=== PATIENT | male | born 1960 | race Caucasian/White ===

== ENCOUNTER 2022-04-23 11:32 | Emergency (ER) | payer OTHER, SELFPAY ==
--- NOTE | ~2022-04-23 | CT_ITS ---
EXAMINATION: CT ABDOMEN AND PELVIS WITHOUT CONTRAST CLINICAL INFORMATION: Flank pain, UTI. Evaluate for stone versus pyelonephritis. COMPARISON: None TECHNIQUE: Multidetector volumetric imaging was performed from the superior aspect of the liver through the pubic symphysis. Sagittal and coronal reformatted images were obtained on the technologist's workstation. This CT examination was performed using dose optimization techniques as appropriate, variously including the following: *Automated exposure control. *Adjustment of mA and/or kV according to patient size (this includes techniques or standardized protocols for targeted exams where dose is matched to indication/reason for exam; i.e. extremities or head). *Use of iterative reconstruction technique. DLP: 502 mGy-cm FINDINGS: LUNG BASES: Minimal bibasilar scarring and/or discoid atelectasis. LIVER, GALLBLADDER, AND BILIARY TREE: Liver unremarkable. No intrahepatic or extrahepatic biliary dilatation. The gallbladder is unremarkable with no evidence of radiopaque gallstones, gallbladder wall thickening, or obvious pericholecystic inflammatory changes. PANCREAS: Unremarkable. SPLEEN: Unremarkable. ADRENAL GLANDS: A 1 cm left adrenal nodule nonspecific measuring 30 Hounsfield units. KIDNEYS AND URETERS: There are 2 adjacent 2 mm distal ureteral calculi at the right UV junction. No apparent dilatation of the right collecting system. Minimal right perinephric stranding. There is a 2 mm nonobstructing right renal calculus in the midpole. There is a 7 mm nonobstructing left renal calculus in the lower pole with minimal perinephric stranding. No dilatation of the collecting system. Possible but not definite 1 mm calculi within or adjacent to the left UV junction. There is also a tiny 1 mm calcification likely within the bladder compatible with a small bladder calculus. BLADDER: The bladder is only partially distended. Question thickening of the gallbladder wall or having a thickened appearance because of the incomplete distention. GASTROINTESTINAL TRACT: The small and large bowel are unremarkable. The appendix is unremarkable. ABDOMINAL WALL: No significant hernia is appreciated. LYMPH NODES: Normal. VASCULAR: Scattered arterial calcification noted throughout. PELVIC VISCERA: Unremarkable. OSSEOUS STRUCTURES: Mild multilevel spondylosis of lumbosacral spine with degenerative disc changes noted at the L2-L3, L3-L4 and L4-L5 levels. CT/CT abdomen pelvis wo IV con IMPRESSION: 1. Two adjacent right distal ureteral calculi without visible dilatation of the right collecting system. 2. Possible left distal ureteral calculus versus phlebolith adjacent to the UV junction. 3. Tiny bladder calculus. 4. Question bladder wall thickening versus artifactual due to lack of distention of the bladder. Findings raise the question of cystitis or bladder outlet obstruction. 5. A 1 cm nonspecific left adrenal mass. In addition to correlation with clinical factors, follow up CT scan in 6 months recommended to ensure stability and further characterize. Recommend adrenal CT without and with contrast. Fleischner guidelines were followed.
[2022-04-23 13:24] VITALS: BP 127/80; PULSE 82; RESP 16; TEMP 36.8; O2SAT 97
[2022-04-23 13:35] LABS: MANUAL DIFF FLAG NO
[2022-04-23 13:37] LABS: Basophils Absolute Auto 0.1 X10*3/uL (0.0-0.2); Basophils Percent Auto 0.5 % (0-2); Eosinophils Absolute Auto 0.1 X10*3/uL (0.0-0.4); Eosinophils Percent Auto 1.2 % (0-4); Hematocrit 39.4 % (42.0-52.0); Imm Gran Abs Auto 0.08 X10*3/uL (0.00-0.03); Imm Gran Pct Auto 0.8 % (0.0-0.4); Lymphocytes Absolute Auto 2.3 X10*3/uL (1.2-4.9); Mean Corpuscular Volume 90.8 fL (80.0-98.0); Mean Platelet Volume 8.6 fL (9.4-12.4); Monocytes Absolute Auto 0.7 X10*3/uL (0.1-1.2); Monocytes Percent Auto 6.8 % (2-11); Neutrophils Absolute Auto 6.4 x10*3/uL (2.0-8.3); Neutrophils Percent Auto 66.7 % (45-73); Platelet Count 413 X10*3/uL (160-400); Red Blood Count 4.34 X10*6/uL (4.60-5.80); White Blood Count 9.6 X10*3/uL (4.8-10.8)
[2022-04-23 13:49] LABS: Appearance Urine Turbid; Color Urine Dark Yellow; Glucose Urine UA Negative (Negative); Leukocyte Esterase Urine Large (3+) (Negative); Nitrite Urine Positive (Negative); PH >= 9.0 (5.0-9.0); Specific Gravity - Urine >= 1.030 (1.005-1.025); UMIC TRIGGER UACC YES; Urine Blood Moderate (2+) (Negative); Urine Ketones Trace mg/dL (Negative); Urine Protein 300 (3+) mg/dL (Neg-Trace)
[2022-04-23 13:59] LABS: Anion Gap 13 (12-20); Blood Urea Nitrogen 14 mg/dL (9-16); Calcium 9.2 mg/dL (8.4-10.2); Carbon Dioxide 28 mmol/L (22-29); Chloride 106 mmol/L (96-108); Estimated Glomerular Filt Rate > 60; Glucose Random 113 mg/dL (60-115); Potassium 3.4 mmol/L (3.3-5.1); Sodium 144 mmol/L (135-145)
[2022-04-23 14:01] LABS: Bacteria Urine 4+ (None Seen); Other Crystals Urine Present; RBC Urine >20 /HPF (0-2); Squamous Epithelial Cell Urine 0-2 /HPF (0-2); UACC Culture Trigger YES; WBC Urine >50 /HPF (0-5)
[2022-04-23 18:50] LABS: Alanine Aminotransferase 21 U/L (0-40); Alkaline Phosphatase 91 U/L (39-117); Aspartate Amino Transferase 32 U/L (5-37); Bilirubin Direct 0.2 mg/dL (0.0-0.5); Bilirubin Total 0.2 mg/dL (0.0-1.0); Lipase 25 U/L (8-78); Total Protein 6.9 g/dL (6.5-8.0)
[2022-04-23 18:52] LABS: Lactic Acid 1.1 mmol/L (0.5-2.0)
[2022-04-23 21:08] VITALS: BP 133/73; PULSE 75; RESP 16; TEMP 37; O2SAT 98
--- NOTE | 2022-04-23 21:08 | ED.MALEGU ---
HPI - Male Genitourinary General Chief complaint: Urogenital-Male Stated complaint: frequent urination, AMS Time Seen by Provider: 04/23/22 17:19 Source: patient and family Mode of arrival: wheelchair History of Present Illness HPI Narrative: Patient with left hemiparesis, hypertension came from [facility] last week had a seizure was in the hospital put a Bosch catheter since the Bosch catheter was removed patient has been having pain when urinates getting worse for last 2 days more burning sensation with dysuria and frequency no fever no chills no nausea no vomiting no flank otherwise patient feels fine Related Data Previous Rx's Medication Instructions Recorded cefuroxime axetil 500 mg tablet 500 mg PO BID #20 tabs 04/23/22 Allergies Allergy/AdvReac Type Severity Reaction Status Date / Time No Known Allergies Allergy Verified 04/23/22 13:23 Review of Systems Review of Systems: Yes all other systems are reviewed and are negative [facility] Past Medical History Medical History Arterial ischemic stroke, MCA (middle cerebral artery), right, chronic Hypertension Social History Social History Advance Directives: No Advance Directives Information Provided: Yes Physical Exam Vital Signs: Vital Signs: Last Vital Signs Temp 98.6 F 04/23/22 21:08 Pulse 75 04/23/22 21:08 Resp 16 04/23/22 21:08 BP 133/73 04/23/22 21:08 Pulse Ox 98 04/23/22 21:08 O2 Del Method 04/23/22 21:08 BMI result Body Mass Index 0.0 Appearance: Alert. Oriented X3. No acute distress. Eyes: PERRLA, No Nystagmus ENT: Pharynx normal. Oral Mucosa moist Neck: Normal inspection. Neck supple. CVS: Normal heart rate and rhythm. Pulses normal. Respiratory: No respiratory distress. Equal air entry bilateral, no wheezing/rales/rhonchi Abdomen: Soft and nontender. Bowel sounds are present, no mass palpable, no CVA tenderness Skin: Skin warm and dry. Normal skin color. Normal skin turgor. Extremities: No lower extremity edema. No calf tenderness Neuro: Oriented X 3. Left hemiparesis. No sensory deficit.No cerebellar signs , cranial nerves II-XII intact MDM - Male Genitourinary MDM Narrative Medical decision making narrative: Patient with uncomplicated UTI normal lactic acid level no signs of sepsis CT scan negative for obstruction patient feeling much better after IV Rocephin will discharge patient home on Ceftin advised to follow-up with PCP Lab Data Attestation: I reviewed the patient's lab results. Result diagrams: 04/23/22 13:31 04/23/22 13:31 Labs: Lab Results 04/23/22 04/23/22 04/23/22 Range/Units 13:28 13:31 13:31 WBC 9.6 (4.8-10.8) X10*3/uL RBC 4.34 L (4.60-5.80) X10*6/uL Hgb 13.0 L (14.0-18.0) g/dl Hct 39.4 L (42.0-52.0) % MCV 90.8 (80.0-98.0) fL MCH 30.0 (27.0-33.0) pg MCHC 33.0 (31.0-36.0) g/dl RDW 13.0 (11.0-16.0) % Plt Count 413 H (160-400) X10*3/uL MPV 8.6 L (9.4-12.4) fL Immature Gran % (Auto) 0.8 H (0.0-0.4) % Neut % (Auto) 66.7 (45-73) % Lymph % (Auto) 24.0 (20-40) % [place] % (Auto) 6.8 (2-11) % Eos % (Auto) 1.2 (0-4) % Baso % (Auto) 0.5 (0-2) % Lymph # (Auto) 2.3 (1.2-4.9) X10*3/uL [place] # (Auto) 0.7 (0.1-1.2) X10*3/uL Eos # (Auto) 0.1 (0.0-0.4) X10*3/uL Baso # (Auto) 0.1 (0.0-0.2) X10*3/uL Abs Immat Gran (auto) 0.08 H (0.00-0.03) X10*3/uL Absolute Neuts (auto) 6.4 (2.0-8.3) x10*3/uL Absolute Nucleated RBC 0.000 (0.0-0.012) X10*3/uL Nucleated RBC % (auto) 0.0 (0.0-0.2) /100WBC Sodium 144 (135-145) mmol/L Potassium 3.4 (3.3-5.1) mmol/L Chloride 106 (96-108) mmol/L Carbon Dioxide 28 (22-29) mmol/L Anion Gap 13 (12-20) BUN 14 (9-16) mg/dL Creatinine 0.91 (0.5-1.4) mg/dL Estim Creat Clear Calc TNP Estimated GFR > 60 Random Glucose 113 (60-115) mg/dL Lactic Acid (0.5-2.0) mmol/L Calcium 9.2 (8.4-10.2) mg/dL Magnesium 2.0 (1.6-2.6) mg/dL Total Bilirubin 0.2 (0.0-1.0) mg/dL Direct Bilirubin 0.2 (0.0-0.5) mg/dL AST 32 (5-37) U/L ALT 21 (0-40) U/L Alkaline Phosphatase 91 (39-117) U/L Total Protein 6.9 (6.5-8.0) g/dL Albumin 4.0 (3.5-5.0) g/dL Lipase 25 (8-78) U/L Urine Color Dark Yellow Urine Appearance Turbid Urine pH >= 9.0 (5.0-9.0) Ur Specific [place] >= 1.030 H (1.005-1.025) Urine Protein 300 (3+) H (Neg-Trace) mg/dL Urine Glucose (UA) Negative (Negative) mg/dL Urine Ketones Trace (Negative) mg/dL Urine Blood Moderate (2+) H (Negative) Urine Nitrite Positive H (Negative) Ur Leukocyte Esterase Large (3+) H (Negative) Urine RBC >20 H (0-2) /HPF Urine WBC >50 H (0-5) /HPF Ur Squamous Epith Cells 0-2 (0-2) /HPF Other Crystals Present Urine Bacteria 4+ (None Seen) Hyaline Casts 11-20 (0-2) /LPF 04/23/22 Range/Units 18:08 WBC (4.8-10.8) X10*3/uL RBC (4.60-5.80) X10*6/uL Hgb (14.0-18.0) g/dl Hct (42.0-52.0) % MCV (80.0-98.0) fL MCH (27.0-33.0) pg MCHC (31.0-36.0) g/dl RDW (11.0-16.0) % Plt Count (160-400) X10*3/uL MPV (9.4-12.4) fL Immature Gran % (Auto) (0.0-0.4) % Neut % (Auto) (45-73) % Lymph % (Auto) (20-40) % [place] % (Auto) (2-11) % Eos % (Auto) (0-4) % Baso % (Auto) (0-2) % Lymph # (Auto) (1.2-4.9) X10*3/uL [place] # (Auto) (0.1-1.2) X10*3/uL Eos # (Auto) (0.0-0.4) X10*3/uL Baso # (Auto) (0.0-0.2) X10*3/uL Abs Immat Gran (auto) (0.00-0.03) X10*3/uL Absolute Neuts (auto) (2.0-8.3) x10*3/uL Absolute Nucleated RBC (0.0-0.012) X10*3/uL Nucleated RBC % (auto) (0.0-0.2) /100WBC Sodium (135-145) mmol/L Potassium (3.3-5.1) mmol/L Chloride (96-108) mmol/L Carbon Dioxide (22-29) mmol/L Anion Gap (12-20) BUN (9-16) mg/dL Creatinine (0.5-1.4) mg/dL Estim Creat Clear Calc Estimated GFR Random Glucose (60-115) mg/dL Lactic Acid 1.1 (0.5-2.0) mmol/L Calcium (8.4-10.2) mg/dL Magnesium (1.6-2.6) mg/dL Total Bilirubin (0.0-1.0) mg/dL Direct Bilirubin (0.0-0.5) mg/dL AST (5-37) U/L ALT (0-40) U/L Alkaline Phosphatase (39-117) U/L Total Protein (6.5-8.0) g/dL Albumin (3.5-5.0) g/dL Lipase (8-78) U/L Urine Color Urine Appearance Urine pH (5.0-9.0) Ur Specific [place] (1.005-1.025) Urine Protein (Neg-Trace) mg/dL Urine Glucose (UA) (Negative) mg/dL Urine Ketones (Negative) mg/dL Urine Blood (Negative) Urine Nitrite (Negative) Ur Leukocyte Esterase (Negative) Urine RBC (0-2) /HPF Urine WBC (0-5) /HPF Ur Squamous Epith Cells (0-2) /HPF Other Crystals Urine Bacteria (None Seen) Hyaline Casts (0-2) /LPF Discharge Plan Discharge Clinical Impression: Urinary tract infection Patient Disposition: Home, Self-Care Instructions: Urinary Tract Infection in Men (ED) Additional Instructions: Drink plenty of water Take antibiotic as prescribed Report to the ER if high fever/vomiting/not feeling good Prescriptions: New cefuroxime axetil 500 mg tablet 500 mg PO BID Qty: 20 0RF Interventions: ED Discharge Assessment Last Done: 04/23/22 22:57
[2022-04-23] MEDS: 0.9 % Sodium Chloride 1,000 ML 999 ML IV (21:34)
[2022-04-23] MEDS: cefTRIAXone sodium 1 GM in 0.9 % Sodium Chloride 50 ML IV (21:34)
== END 2022-04-23 23:30 | disposition home or self-care (01) ==
PROVIDERS: Physician Assistant; Emergency Provider Internal Medicine
DX: N39.0 Urinary tract infection, site not specified (principal); B96.4 Proteus (mirabilis) (morganii) as the cause of diseases classified elsewhere; I69.354 Hemiplegia and hemiparesis following cerebral infarction affecting left non-dominant side; I10 Essential (primary) hypertension
CPT/HCPCS: 36415; 74176; 80048; 80076; 81001; 83605; 83690; 83735; 85025; 87040; 87086; 87088; 87186; 96361; 96365; 99283; 99284; J0696

== ENCOUNTER 2022-06-11 16:10 | Emergency (ER) | payer MEDICARE, OTHER, SELFPAY ==
--- NOTE | ~2022-06-11 | XR_ITS ---
EXAMINATION: XR CHEST CLINICAL INFORMATION: Shortness of breath, Covid COMPARISON: None TECHNIQUE: Frontal view of the chest was obtained. FINDINGS: Lungs are slightly hypoinflated. No airspace consolidation. No pleural effusion or pneumothorax. Cluster of calcifications projects over the right lung apex, exact location uncertain, presumably calcified granulomas. Normal cardiomediastinal silhouette and pulmonary vascularity. No acute osseous injury. XR/XR chest 1V IMPRESSION: 1. No acute pulmonary disease.
[2022-06-11 16:21] VITALS: BP 117/69; BP 138/70; PULSE 94; PULSE 98; RESP 18; TEMP 38.5; O2SAT 94; BMI 23.9
--- NOTE | 2022-06-11 16:37 | ED.CHESTPAIN ---
HPI - Chest Pain General Chief Complaint: Fever Stated Complaint: THROAT PAIN, CHEST TIGHTNESS, +COVID Time Seen by Provider: 06/11/22 16:36 Source: patient and family Mode of arrival: EMS Limitations: no limitations History of Present Illness HPI narrative: Patient is 58 years old with history of hypertension seizure disorder recurrent UTI CVA with left-sided hemiparesis brought by his daughter for fever and cough for last 1. Patient had UTI about 10 days ago just started on amoxicillin patient continued to have symptoms 4 days agopcp Changed antibiotic to Ceftin after seeing the urine culture patient still having fever chills and now started having mostly dry cough since yesterday home COVID test was positive patient feels weak and tired. No abdominal pain no nausea no vomiting no flank previous confirmed UTI was in 04/17 which grew Proteus mirabilis sensitive to Ceftin Related Data Previous Rx's Medication Instructions Recorded cefuroxime axetil 500 mg tablet 500 mg PO BID #20 tabs 04/23/22 Allergies Allergy/AdvReac Type Severity Reaction Status Date / Time No Known Allergies Allergy Verified 04/23/22 13:23 Review of Systems Review of Systems: Yes all other systems are reviewed and are negative [facility] Past Medical History Medical History Arterial ischemic stroke, MCA (middle cerebral artery), right, chronic Hypertension Social History Social History Advance Directives: No Advance Directives Information Provided: No Physical Exam Vital Signs: Vital Signs: Last Vital Signs Temp 99.0 F 06/11/22 19:37 Pulse 78 06/11/22 19:37 Resp 16 06/11/22 19:37 BP 119/68 06/11/22 19:37 Pulse Ox 95 06/11/22 19:37 O2 Del Method 06/11/22 19:37 BMI result Body Mass Index 23.9 Appearance: Alert. Oriented X3. No acute distress. Eyes: PERRLA, ENT: Pharynx normal. Oral Mucosa moist Neck: Normal inspection. Neck supple. CVS: Normal heart rate and rhythm. Pulses normal. Respiratory: No respiratory distress. Equal air entry bilateral, no wheezing/rales/rhonchi Abdomen: Soft and nontender. Bowel sounds are present, no mass palpable, no CVA tenderness Skin: Skin warm and dry. Normal skin color. Normal skin turgor. Extremities: No lower extremity edema. No calf tenderness Neuro: Oriented X 3. Left-sided residual weakness No sensory deficit.No cerebellar signs , cranial nerves II-XII intact Medications Administered Discontinued Medications Generic Name Dose Route Start Last Admin Trade Name Freq PRN Reason Stop Dose Admin Sodium Chloride 1,000 mls @ 999 mls/hr 06/11/22 16:54 06/11/22 19:14 Ns IV 06/11/22 17:54 999 mls/hr .Q1H1M ONE Administration MDM - Chest Pain MDM Narrative Medical decision making narrative: Patient with UTI with COVID-19 already on Ceftin normal leukocyte count normal lactic acid level previous urine showed Proteus mirabilis sensitive to Ceftin will continue same give extra dose of Rocephin in the ER discharge patient home advised to report to the ER if high fever continues. Blood cultures were drawn unable to get the urine culture result from the [facility] but PCP has seen it and started him on Ceftin Medical Records Data Attestation: I reviewed the patient's medical records. Lab Data Attestation: I reviewed the patient's lab results. Result diagrams: 06/11/22 17:39 06/11/22 17:39 Labs: Lab Results 06/11/22 06/11/22 06/11/22 Range/Units 17:38 17:39 17:39 WBC 7.7 (4.8-10.8) X10*3/uL RBC 4.16 L (4.60-5.80) X10*6/uL Hgb 12.7 L (14.0-18.0) g/dl Hct 38.2 L (42.0-52.0) % MCV 91.8 (80.0-98.0) fL MCH 30.5 (27.0-33.0) pg MCHC 33.2 (31.0-36.0) g/dl RDW 13.1 (11.0-16.0) % Plt Count 235 D (160-400) X10*3/uL MPV 8.8 L (9.4-12.4) fL Immature Gran % (Auto) 0.1 (0.0-0.4) % Neut % (Auto) 69.3 (45-73) % Lymph % (Auto) 20.4 (20-40) % [place] % (Auto) 9.8 (2-11) % Eos % (Auto) 0.0 (0-4) % Baso % (Auto) 0.4 (0-2) % Lymph # (Auto) 1.6 (1.2-4.9) X10*3/uL [place] # (Auto) 0.8 (0.1-1.2) X10*3/uL Eos # (Auto) 0.0 (0.0-0.4) X10*3/uL Baso # (Auto) 0.0 (0.0-0.2) X10*3/uL Abs Immat Gran (auto) 0.01 (0.00-0.03) X10*3/uL Absolute Neuts (auto) 5.3 (2.0-8.3) x10*3/uL Absolute Nucleated RBC 0.000 (0.0-0.012) X10*3/uL Nucleated RBC % (auto) 0.0 (0.0-0.2) /100WBC Sodium 136 (135-145) mmol/L Potassium 3.5 (3.3-5.1) mmol/L Chloride 104 (96-108) mmol/L Carbon Dioxide 21 L (22-29) mmol/L Anion Gap 15 (12-20) BUN 10 (9-16) mg/dL Creatinine 0.70 (0.5-1.4) mg/dL Estim Creat Clear Calc 90.4 Estimated GFR > 60 Random Glucose 119 H (60-115) mg/dL Lactic Acid 0.8 (0.5-2.0) mmol/L Calcium 8.4 D (8.4-10.2) mg/dL Total Bilirubin 0.3 (0.0-1.0) mg/dL AST 21 (5-37) U/L ALT 13 (0-40) U/L Alkaline Phosphatase 89 (39-117) U/L Total Protein 6.9 (6.5-8.0) g/dL Albumin 4.0 (3.5-5.0) g/dL Urine Color Urine Appearance Urine pH (5.0-9.0) Ur Specific [place] (1.005-1.025) Urine Protein (Neg-Trace) mg/dL Urine Glucose (UA) (Negative) mg/dL Urine Ketones (Negative) mg/dL Urine Blood (Negative) Urine Nitrite (Negative) Ur Leukocyte Esterase (Negative) Urine RBC (0-2) /HPF Urine WBC (0-5) /HPF Ur Squamous Epith Cells (0-2) /HPF Other Crystals Urine Bacteria (None Seen) Hyaline Casts (0-2) /LPF Influenza Type A (PCR) (Negative) Influenza Type B (PCR) (Negative) RSV RNA Qual (PCR) (Negative) SARS-CoV-2 RNA (RT-PCR) (Negative) 06/11/22 06/11/22 Range/Units 17:40 17:49 WBC (4.8-10.8) X10*3/uL RBC (4.60-5.80) X10*6/uL Hgb (14.0-18.0) g/dl Hct (42.0-52.0) % MCV (80.0-98.0) fL MCH (27.0-33.0) pg MCHC (31.0-36.0) g/dl RDW (11.0-16.0) % Plt Count (160-400) X10*3/uL MPV (9.4-12.4) fL Immature Gran % (Auto) (0.0-0.4) % Neut % (Auto) (45-73) % Lymph % (Auto) (20-40) % [place] % (Auto) (2-11) % Eos % (Auto) (0-4) % Baso % (Auto) (0-2) % Lymph # (Auto) (1.2-4.9) X10*3/uL [place] # (Auto) (0.1-1.2) X10*3/uL Eos # (Auto) (0.0-0.4) X10*3/uL Baso # (Auto) (0.0-0.2) X10*3/uL Abs Immat Gran (auto) (0.00-0.03) X10*3/uL Absolute Neuts (auto) (2.0-8.3) x10*3/uL Absolute Nucleated RBC (0.0-0.012) X10*3/uL Nucleated RBC % (auto) (0.0-0.2) /100WBC Sodium (135-145) mmol/L Potassium (3.3-5.1) mmol/L Chloride (96-108) mmol/L Carbon Dioxide (22-29) mmol/L Anion Gap (12-20) BUN (9-16) mg/dL Creatinine (0.5-1.4) mg/dL Estim Creat Clear Calc Estimated GFR Random Glucose (60-115) mg/dL Lactic Acid (0.5-2.0) mmol/L Calcium (8.4-10.2) mg/dL Total Bilirubin (0.0-1.0) mg/dL AST (5-37) U/L ALT (0-40) U/L Alkaline Phosphatase (39-117) U/L Total Protein (6.5-8.0) g/dL Albumin (3.5-5.0) g/dL Urine Color Yellow Urine Appearance Cloudy Urine pH 6.0 (5.0-9.0) Ur Specific [place] 1.015 (1.005-1.025) Urine Protein Negative (Neg-Trace) mg/dL Urine Glucose (UA) Negative (Negative) mg/dL Urine Ketones Negative (Negative) mg/dL Urine Blood Trace H (Negative) Urine Nitrite Negative (Negative) Ur Leukocyte Esterase Moderate (2+) H (Negative) Urine RBC 11-20 H (0-2) /HPF Urine WBC 6-10 H (0-5) /HPF Ur Squamous Epith Cells 3-5 (0-2) /HPF Other Crystals Present Urine Bacteria None Seen (None Seen) Hyaline Casts 0-2 (0-2) /LPF Influenza Type A (PCR) NEGATIVE (Negative) Influenza Type B (PCR) NEGATIVE (Negative) RSV RNA Qual (PCR) NEGATIVE (Negative) SARS-CoV-2 RNA (RT-PCR) POSITIVE A (Negative) Discharge Plan Discharge Clinical Impression: UTI (urinary tract infection), COVID-19 Patient Disposition: Home, Self-Care Instructions: Urinary Tract Infection in Older Adults (ED), COVID-19 (Coronavirus Disease 2019) (ED) Additional Instructions: Continue antibiotics as prescribed by your PCP Keep hydrated Report to the ER if shortness of breath/chest pain/not getting better Prescriptions: No Action cefuroxime axetil 500 mg tablet 500 mg PO BID Qty: 20 0RF
--- NOTE | 2022-06-11 17:01 | ED.GENADULT ---
HPI - General Adult General Chief complaint: Fever Stated complaint: THROAT PAIN, CHEST TIGHTNESS, +COVID Time Seen by Provider: 06/11/22 16:36 Source: patient and family Mode of arrival: wheelchair Limitations: no limitations Related Data Previous Rx's Medication Instructions Recorded cefuroxime axetil 500 mg tablet 500 mg PO BID #20 tabs 04/23/22 Allergies Allergy/AdvReac Type Severity Reaction Status Date / Time No Known Allergies Allergy Verified 04/23/22 13:23 PMF Past Medical History Medical History Arterial ischemic stroke, MCA (middle cerebral artery), right, chronic Hypertension Social History Social History Advance Directives: No Advance Directives Information Provided: No Physical Exam ED Vital Signs: Vital Signs - 24 hr 06/11/22 16:21 Temperature 101.3 F H Pulse Rate 94 Respiratory Rate 18 Blood Pressure 117/69 Pulse Oximetry 94 Oxygen Delivery Method Room Air BMI result Body Mass Index 23.9 Discharge Plan Discharge Prescriptions: No Action cefuroxime axetil 500 mg tablet 500 mg PO BID Qty: 20 0RF
--- NOTE | 2022-06-11 17:09 | ECG_ITS ---
Test Reason : FEVER Blood Pressure : / mmHG Vent. Rate : 088 BPM Atrial Rate : 088 BPM P-R Int : 158 ms QRS Dur : 084 ms QT Int : 340 ms P-R-T Axes : 042 005 050 degrees QTc Int : 411 ms Normal sinus rhythm Nonspecific T wave abnormality Borderline ECG No previous ECGs available Referred By: Mor Martell Electronically Signed By:VIRY SNIDER MD
[2022-06-11 17:44] VITALS: BP 102/66; PULSE 87; RESP 16; TEMP 38.7; O2SAT 98
--- NOTE | 2022-06-11 17:45 | PC.NURSE ---
Addendum entered by Griselda Kirby 06/11/22 17:48: PT JUST VOID ,URINE SAMPLE SEND TO LAB . Original Note: 1800 ROUNDING DONE ,VITALS SIGN TAKEN ,BLOOD, BLOOD CULTURE DRAWN AND SARS SWAB TAKEN ,ALL SEND TO LAB ,PT NOT ABLE TO GIVE URINE SAMPLE AT THIS TIME ,PT GOT CHANGE INTO HOSPITAL ATTIRE ,PT DAUGHTER AT BEDSIDE .
[2022-06-11 17:46] LABS: MANUAL DIFF FLAG NO
[2022-06-11 17:50] LABS: Basophils Percent Auto 0.4 % (0-2); Hematocrit 38.2 % (42.0-52.0); Hemoglobin 12.7 g/dl (14.0-18.0); Imm Gran Abs Auto 0.01 X10*3/uL (0.00-0.03); Imm Gran Pct Auto 0.1 % (0.0-0.4); Lymphocytes Absolute Auto 1.6 X10*3/uL (1.2-4.9); Lymphocytes Percent Auto 20.4 % (20-40); Mean Corpuscular HGB Conc 33.2 g/dl (31.0-36.0); Mean Corpuscular Hemoglobin 30.5 pg (27.0-33.0); Mean Corpuscular Volume 91.8 fL (80.0-98.0); Mean Platelet Volume 8.8 fL (9.4-12.4); Monocytes Absolute Auto 0.8 X10*3/uL (0.1-1.2); Monocytes Percent Auto 9.8 % (2-11); Neutrophils Absolute Auto 5.3 x10*3/uL (2.0-8.3); Neutrophils Percent Auto 69.3 % (45-73); Platelet Count 235 X10*3/uL (160-400); Red Blood Count 4.16 X10*6/uL (4.60-5.80); Red Cell Distribution Width 13.1 % (11.0-16.0); White Blood Count 7.7 X10*3/uL (4.8-10.8)
[2022-06-11 18:10] LABS: Appearance Urine Cloudy; Color Urine Yellow; Glucose Urine UA Negative (Negative); Leukocyte Esterase Urine Moderate (2+) (Negative); Nitrite Urine Negative (Negative); Specific Gravity - Urine 1.015 (1.005-1.025); UMIC TRIGGER UACC YES; Urine Blood Trace (Negative); Urine Ketones Negative (Negative); Urine Protein Negative (Neg-Trace)
[2022-06-11 18:18] LABS: Lactic Acid 0.8 mmol/L (0.5-2.0)
[2022-06-11 18:23] LABS: Alanine Aminotransferase 13 U/L (0-40); Alkaline Phosphatase 89 U/L (39-117); Anion Gap 15 (12-20); Aspartate Amino Transferase 21 U/L (5-37); Bilirubin Total 0.3 mg/dL (0.0-1.0); Blood Urea Nitrogen 10 mg/dL (9-16); Calcium 8.4 mg/dL (8.4-10.2); Carbon Dioxide 21 mmol/L (22-29); Chloride 104 mmol/L (96-108); Creatinine Clr Calc Pharmacy 90.4; Estimated Glomerular Filt Rate > 60; Glucose Random 119 mg/dL (60-115); Potassium 3.5 mmol/L (3.3-5.1); Sodium 136 mmol/L (135-145); Total Protein 6.9 g/dL (6.5-8.0)
[2022-06-11 18:45] LABS: Influenza A PCR NEGATIVE (Negative); Influenza B PCR NEGATIVE (Negative); Resp Syncy Virus RNA Qual PCR NEGATIVE (Negative); SARS COV2 PCR INHOUSE POSITIVE (Negative)
[2022-06-11] MEDS: 0.9 % Sodium Chloride 1,000 ML 999 ML IV (19:14)
[2022-06-11 19:17] LABS: Bacteria Urine None Seen (None Seen); Hyaline Casts Urine 0-2 /LPF (0-2); Other Crystals Urine Present; UACC Culture Trigger YES
[2022-06-11 19:37] VITALS: BP 119/68; PULSE 78; RESP 16; TEMP 37.2; O2SAT 95
[2022-06-11 21:44] VITALS: BP 125/70; PULSE 79; RESP 16; TEMP 37.4; O2SAT 97
[2022-06-11] MEDS: cefTRIAXone sodium 1 GM in 0.9 % Sodium Chloride 50 ML IV (21:55)
== END 2022-06-11 22:32 | disposition home or self-care (01) ==
PROVIDERS: Emergency Provider Internal Medicine; PCP Internal Medicine Geriatric Medicine
DX: U07.1 COVID-19 (principal); N39.0 Urinary tract infection, site not specified; I10 Essential (primary) hypertension; Z79.899 Other long term (current) drug therapy
CPT/HCPCS: 0241U; 36415; 71045; 80053; 81001; 83605; 85025; 87040; 87086; 93005; 96374; 99284; J0696

== ENCOUNTER 2022-07-10 14:36 | Outpatient (REF) | payer MEDICARE, OTHER, SELFPAY ==
--- NOTE | ~2022-07-10 | US_ITS ---
EXAMINATION: US RETROPERITONEAL COMPLETE (RENAL) CLINICAL INFORMATION: UTI. COMPARISON: CT abdomen and pelvis 07/23/2022. TECHNIQUE: Real-time imaging of the kidneys and bladder. FINDINGS: RIGHT KIDNEY: 11.0 x 7.5 x 7.6 cm (SAG x AP x TRV). The kidney is normal in size, contour, and echogenicity. Renal cortical thickness is normal. No hydronephrosis. Benign-appearing renal cysts measuring up to 2 cm no follow-up imaging recommended. Nonobstructing stones measuring 6 mm in the midpole and 5 mm in the upper pole. LEFT KIDNEY: 14.3 x 5.8 x 5.4 cm (SAG x AP x TRV). The kidney is normal in size, contour, and echogenicity. Renal cortical thickness is normal. No hydronephrosis. Benign-appearing renal cysts measuring up to 6.3 cm no follow-up imaging recommended. Nonobstructing 8 mm upper pole renal stone and 5 mm pole renal stone. BLADDER: Debris within the urinary bladder. Bilateral ureteral jets are demonstrated. Prevoid bladder volume is 402.3 mL. Postvoid bladder volume is 349.5 mL. A 7 mm calcification is noted in the region of the right ureterovesicular junction and a 6 mm calcification is noted in the region of the left ureterovesicular junction which could potentially reflect ureteral stones. ADDITIONAL FINDINGS: Prostate is enlarged measuring 43 mL. US/US retroperitoneal comp IMPRESSION: A 7 mm calcification is noted in the region of the right ureterovesicular junction and a 6 mm calcification is noted in the region of the left ureterovesicular junction which could potentially reflect ureteral stones. Ureteral jets were identified bilaterally. No hydronephrosis is present. Additional bilateral nonobstructing renal stones measuring up to 6 mm in the right midpole also seen. Large postvoid bladder residual of 349.5 mL with debris within the urinary bladder. Prostate is enlarged.
== END 2022-07-10 14:37 | disposition home or self-care (01) ==
LOC: HO.US 14:36
PROVIDERS: Visit Provider Internal Medicine Geriatric Medicine
DX: N39.0 Urinary tract infection, site not specified (principal); B96.4 Proteus (mirabilis) (morganii) as the cause of diseases classified elsewhere
CPT/HCPCS: 76770

== ENCOUNTER 2022-07-16 18:00 | Emergency (ER) | payer MEDICARE, OTHER, SELFPAY ==
--- NOTE | ~2022-07-16 | CT_ITS ---
EXAMINATION: CT ABDOMEN AND PELVIS WITHOUT CONTRAST CLINICAL INFORMATION: Urinary retention. COMPARISON: CT abdomen and pelvis without contrast 04/15/2022 TECHNIQUE: Multidetector volumetric imaging was performed from the superior aspect of the liver through the pubic symphysis. Sagittal and coronal reformatted images were obtained on the technologist's workstation. This CT examination was performed using dose optimization techniques as appropriate, variously including the following: *Automated exposure control *Adjustment of mA and/or kV according to patient size (this includes techniques or standardized protocols for targeted exams where dose is matched to indication/reason for exam; i.e. extremities or head) *Use of iterative reconstruction technique DLP: 524 mGy-cm FINDINGS: LUNG BASES: The heart size is normal. Mild coronary artery calcifications are seen. No pericardial effusion seen. There is minimal dependent bibasilar atelectasis. LIVER, GALLBLADDER, AND BILIARY TREE: The liver is normal in size, shape, and attenuation. No focal hepatic lesion or biliary ductal dilatation is present. The gallbladder is unremarkable with no evidence of radiopaque gallstones, gallbladder wall thickening, or obvious pericholecystic inflammatory changes. PANCREAS: Unremarkable. SPLEEN: Unremarkable. ADRENAL GLANDS: There is a left adrenal 1.4 x 1.2 cm solid lesion measuring 26 Hounsfield units. The right adrenal gland is unremarkable. KIDNEYS AND URETERS: The kidneys are normal in size, shape, and attenuation. There is bilateral perinephric stranding. There are bilateral renal cysts. The largest cyst upper pole measures 4.9 x 6.7 cm. There is a 4 mm radiopaque calculi mid pole right kidney and 6 mm radiopaque calculi lower pole left kidney. There is no hydronephrosis or hydroureter. BLADDER: There is diffuse bladder wall thickening with a bladder catheter within. No radiopaque calculi seen. GASTROINTESTINAL TRACT: There is scattered stool, diverticuli and gas seen throughout the colon without distention. The small bowel loops are normal caliber. Appendix is normal caliber. The stomach is distended and appears unremarkable. ABDOMINAL WALL: No significant hernia is appreciated. LYMPH NODES: Normal. VASCULAR: Unremarkable. PELVIC VISCERA: The prostate gland is mildly enlarged with central gland calcification. OSSEOUS STRUCTURES: No aggressive lytic or sclerotic process seen. There is mild ventral spondylosis L2-L3 and L4 vertebra. There is a sclerotic lesion L2 vertebra, stable. CT/CT abdomen pelvis wo IV con IMPRESSION: I lateral nephrolithiasis and bilateral renal cysts without hydronephrosis. There is bilateral perinephric stranding. There is diffuse bladder wall thickening unchanged to previous exam. A bladder catheter is noted within. Mild constipation with scattered colonic diverticulosis. Distended stomach with recently ingested food. Fleischner guidelines were followed.
[2022-07-16 18:08] VITALS: BP 135/79; PULSE 85; RESP 18; TEMP 36.6; O2SAT 97; BMI 20.1
--- NOTE | 2022-07-16 18:17 | ED_ITS ---
HPI - Male Genitourinary General Chief complaint: Urogenital-Male <Mitch Hurst MD - Last Filed: 07/16/22 18:20> Stated complaint: needs le to be put in per dr. 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 He had the pre and post bladder scan which revealed 402.3 mL prevoid and a pulse bladder scan of 349.5 mL. Therefore he had an ultrasound which revealed a 7 mm calcification noted in the region of the right UVJ and a 6 mm calcification noted in the left UVJ which could potentially reflect urinary stones. Ureteral jets were identified bilaterally. No hydronephrosis was noted. He was also noted to have bilateral renal stones measuring up to 6 mm in the right midpole also seen. And his prostate was enlarged per this ultrasound done on 07/14/2022 therefore His PCP sent him here for further evaluation treatment Le catheter placement. He has of video gordon ointment tomorrow with urology that he was referred to by his PCP Dr. Rick Spears. <MARY ANN Osullivan - Last Filed: 07/16/22 18:56> MD Complaint: dysuria and other (Urinary retention) <MARY ANN Osullivan - Last Filed: 07/16/22 18:56> Onset (ago): month(s) (1-2 months worse in the past week) <MARY ANN Osullivan - Last Filed: 07/16/22 18:56> Duration: constant and progressively worsening <MARY ANN Osullivan - Last Filed: 07/16/22 18:56> Location: penis <MARY ANN Osullivan - Last Filed: 07/16/22 18:56> Severity: mild <MARY ANN Osullivan - Last Filed: 07/16/22 18:56> Quality: aching and burning <MARY ANN Osullivan - Last Filed: 07/16/22 18:56> Relieving factors: none <MARY ANN Osullivan - Last Filed: 07/16/22 18:56> Exacerbating factors: urination <MARY ANN Osullivan - Last Filed: 07/16/22 18:56> Context: other (Recurrent UTI) <MARY ANN Osullivan - Last Filed: 07/16/22 18:56> Associated symptoms: Reports urinary retention, blood in urine and dysuria <MARY ANN Osullivan - Last Filed: 07/16/22 18:56> Related Data Sexually active: No <MARY ANN Osullivan - Last Filed: 07/16/22 18:56> Home medications: Previous Rx's Medication Instructions Recorded cefuroxime axetil 500 mg tablet 500 mg PO BID #20 tabs 04/23/22 <Mitch Hurst MD - Last Filed: 07/16/22 18:20> Allergies/Adverse reactions: Allergies Allergy/AdvReac Type Severity Reaction Status Date / Time No Known Allergies Allergy Verified 04/23/22 13:23 <Mitch Hurst MD - Last Filed: 07/16/22 18:20> Review of Systems Review of Systems: Constitutional : No Weight loss, No Fever, No Chills, No Night Sweats, No Fatigue, NoMalaise ENT/Mouth: No ear pain, No sore throat, No Difficulty swallowing Cardiovascular : No Chest Pain, No SOB, No Dyspnea on Exertion, No Orthopnea, NoEdema, No Palpitations Respiratory : No Cough, No Sputum, No Wheezing, No Dyspnea Gastrointestinal : No Nausea, No Vomiting, No Diarrhea, No abdominal Pain, No Hematochezia, No Melena Genitourinary : No testicular pain, No irregular bleeding, + Dysuria, No Urinary Frequency, + Hematuria,+ Urinary Incontinence, + Urgency, No Flank Pain, + urinary retention Musculoskeletal : No joint pain, No Myalgias, No Joint Swelling Skin : No Skin Lesions, No rash Neuro : No Weakness, No Numbness, No Paresthesias, No Loss of Consciousness, NoDizziness, No Headache Psych : No Social Issues, Heme/Lymph: No Bruising, No Bleeding,No Lymphadenopathy Endocrine : No Polyuria, No Polydipsia, No Temperature Intolerance PATIENT DENIES ANY THOUGHTS OF STDS <MARY ANN Osullivan - Last Filed: 07/16/22 18:56> Yes all other systems are reviewed and are negative <MARY ANN Osullivan - Last Filed: 07/16/22 18:56> FORMERLY [facility] Past Medical History Attestation statement: The following information was validated with the patient. <MARY ANN Osullivan - Last Filed: 07/16/22 18:56> Source: old records reviewed, obtained from family and nursing notes reviewed <MARY ANN Osullivan - Last Filed: 07/16/22 18:56> Medical History: Medical History Arterial ischemic stroke, MCA (middle cerebral artery), right, chronic Hypertension <Mitch Hurst MD - Last Filed: 07/16/22 18:20> Social History Social History: Social History Advance Directives: No Advance Directives Information Provided: Yes <Mitch Hurst MD - Last Filed: 07/16/22 18:20> Physical Exam Vital Signs: Vital Signs: Last Vital Signs Temp 97.8 F 07/16/22 20:56 Pulse 73 07/16/22 20:56 Resp 14 07/16/22 20:56 BP 120/64 07/16/22 20:56 Pulse Ox 97 07/16/22 20:56 O2 Del Method 07/16/22 20:56 BMI result Body Mass Index 20.1 <Mitch Hurst MD - Last Filed: 07/16/22 18:20> Vital Signs: Last Vital Signs Temp 97.8 F 07/16/22 20:56 Pulse 73 07/16/22 20:56 Resp 14 07/16/22 20:56 BP 120/64 07/16/22 20:56 Pulse Ox 97 07/16/22 20:56 O2 Del Method 07/16/22 20:56 BMI result Body Mass Index 20.1 vital signs have been reviewed as normal and appeared to be correct. Blood pressure normal. Heart rate normal. Respiration rate normal. Temperature normal. Oxygen saturation normal. <MARY ANN Osullivan - Last Filed: 07/16/22 18:56> Vital Signs: Last Vital Signs Temp 97.8 F 07/16/22 20:56 Pulse 73 07/16/22 20:56 Resp 14 07/16/22 20:56 BP 120/64 07/16/22 20:56 Pulse Ox 97 07/16/22 20:56 O2 Del Method 07/16/22 20:56 BMI result Body Mass Index 20.1 <Jane Mendosa CNP - Last Filed: 07/16/22 22:07> Appearance: Alert. Oriented X3. No acute distress. Head: Normal external exam. Normocephalic. Atraumatic. Eyes: PERRLA. EOMI. Conjunctiva and sclera normal. Eyelids normal. ENT: Pharynx normal. Uvula midline. Moist mucous membranes. Neck: Normal inspection. Neck supple. FROM. No adenopathy. No meningeal signs. CVS: Normal heart rate and rhythm. Heart sound normal. No murmurs noted. Pulses normal throughout. Respiratory: No respiratory distress. Painless inspiration. Breath sounds normal. No wheezes/rales/rhonchi noted. Chest nontender. No accessory muscle usage noted or decreased air movement noted. Abdomen: Soft and nontender. Bowel sounds normal in all 4 quadrants. No distention noted. No organomegaly noted. No visible injury noted. : Chaperoned by Leah ARTHUR. Normal external exam. No masses/lumps/ec chymosis/edema/erythema/lacerations/lesions/vesicles/induration or tenderness noted. No hernia noted. No inguinal lymphadenopathy noted. Normal penis free of discharge. The scrotum is normal. Testicles are both descended bilaterally and appear normal. No hydrocele or scrotal mass/swelling noted. No varicocele. Epididymides normal. No blue dot sign. Back: No CVA tenderness. Full range of motion noted. Skin: Skin warm and dry. Normal skin color. Normal skin turgor. No rashes/lesions/lacerations noted. Extremities: Extremities exhibit normal range of motion. Extremities nontender. Neuro: Oriented X 3. No motor deficit. No sensory deficit. Reflexes normal. <MARY ANN Osullivan - Last Filed: 07/16/22 18:56> Course Course Course Narrative: RME: 61-year-old male sent to emergency department by his PCP for evaluation of abnormal ultrasound results. According to the patient's daughter, the patient has had frequent urinary tract infections since April 2022 and the patient's PCP ordered ultrasound last week. They followed up today and the daughter states that the patient had kidney stones, enlarged prostate and a very large bladder. The daughter told me that the patient was told not to urinate prior to the ultrasound. The patient's doctor was concerned that the patient may need a Le catheter and sent the patient to the emergency department. The daughter states the patient has had tea colored urine over the past several days otherwise the patient denies for dysuria or frequency. He states he does wake up 2 times at night to urinate. He denies abdominal pain her feeling distended this time. I ordered a CBC, CMP, urinalysis, pre and postvoid bladder scan. 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 He had the pre and post bladder scan which revealed 402.3 mL prevoid and a pulse bladder scan of 349.5 mL. Therefore he had an ultrasound which revealed a 7 mm calcification noted in the region of the right UVJ and a 6 mm calcification noted in the left UVJ which could potentially reflect urinary stones. Ureteral jets were identified bilaterally. No hydronephrosis was noted. He was also noted to have bilateral renal stones measuring up to 6 mm in the right midpole also seen. And his prostate was enlarged per this ultrasound done on 07/14/2022 therefore His PCP sent him here for further evaluation treatment Le catheter placement. He has of video appointment tomorrow with urology that he was referred to by his PCP Dr. Rick Spears. Labs ordered in triage and revealed - Patient mild baseline anemia which is improved when compared to prior with an H&H of 13.7/41.7. - Carbon dioxide 30. - Anion gap 10. - Random glucose 125. - Otherwise all other labs are within normal limits. Plan: - We performed a bladder scan which revealed 588 in the bladder. Patient only urinated 100 mL after the bladder scan on his own. Therefore we will place a Le catheter. - CT scan abdomen pelvis to evaluate for any acute processes and and re- evaluate. <MARY ANN Osullivan - Last Filed: 07/16/22 18:56> Time: 18:43 <MARY ANN Osullivan - Last Filed: 07/16/22 18:56> Reevaluation #2: CBC without leukocytosis, normocytic anemia is consistent with baseline not needing transfusion criteria. CMP is overall unremarkable. Urinalysis consistent with hematuria, no WBC/bacteria seen, at this time does not appear consistent with urinary tract infection, has had similar appearing urinalysis in May 2022 with culture consistent with mixed bacterial radha likely urogenital contamination, he is without dysuria, frequency, fevers, chills, nausea, vomiting. At this time would defer treatment for urinary tract infectio n culture was sent and is pending. CT/CT abdomen pelvis wo IV con IMPRESSION: I lateral nephrolithiasis and bilateral renal cysts without hydronephrosis. There is bilateral perinephric stranding. ? There is diffuse bladder wall thickening unchanged to previous exam. A bladder catheter is noted within. ? Mild constipation with scattered colonic diverticulosis. Distended stomach with recently ingested food. No evidence of obstruction on CT, no hydronephrosis, diffuse bladder wall thickening unchanged when compared to prior. At this time patient is stable for discharge home. Discussed above findings and advised outpatient follow-up with primary care/urology as scheduled. <Jane Mendosa CNP - Last Filed: 07/16/22 22:07> Time: 21:00 <Jane Mendosa CNP - Last Filed: 07/16/22 22:07> Medications Administered Discontinued Medications Generic Name Dose Route Start Last Admin Trade Name Freq PRN Reason Stop Dose Admin Lidocaine HCl 10 ml 07/16/22 18:40 07/16/22 18:59 Lidocaine Hcl 2 % Urojet 10 Ml Jel.Pf.Gordon TOPICAL 07/16/22 18:41 10 ml ONCE ONE Administration Lidocaine HCl 20 ml 07/16/22 19:12 07/16/22 19:32 Lidocaine Hcl 2 % Urojet 10 Ml Jel.Pf.Gordon TOPICAL 07/16/22 19:13 20 ml ONCE ONE Administration <Mitch Hurst MD - Last Filed: 07/16/22 18:20> Medications Administered Discontinued Medications Generic Name Dose Route Start Last Admin Trade Name Freq PRN Reason Stop Dose Admin Lidocaine HCl 10 ml 07/16/22 18:40 07/16/22 18:59 Lidocaine Hcl 2 % Urojet 10 Ml Jel.Pf.Gordon TOPICAL 07/16/22 18:41 10 ml ONCE ONE Administration Lidocaine HCl 20 ml 07/16/22 19:12 07/16/22 19:32 Lidocaine Hcl 2 % Urojet 10 Ml Jel.Pf.Gordon TOPICAL 07/16/22 19:13 20 ml ONCE ONE Administration <MARY ANN Osullivan - Last Filed: 07/16/22 18:56> Medications Administered Discontinued Medications Generic Name Dose Route Start Last Admin Trade Name Freq PRN Reason Stop Dose Admin Lidocaine HCl 10 ml 07/16/22 18:40 07/16/22 18:59 Lidocaine Hcl 2 % Urojet 10 Ml Jel.Pf.Gordon TOPICAL 07/16/22 18:41 10 ml ONCE ONE Administration Lidocaine HCl 20 ml 07/16/22 19:12 07/16/22 19:32 Lidocaine Hcl 2 % Urojet 10 Ml Jel.Pf.Gordon TOPICAL 07/16/22 19:13 20 ml ONCE ONE Administration <Jane Mendosa CNP - Last Filed: 07/16/22 22:07> Medical Decision Making Lab Data MDM Lab Attestation statement: I reviewed the patient's lab results. <MARY ANN Osullivan - Last Filed: 07/16/22 18:56> Result Diagrams: : 07/16/22 18:23 07/16/22 18:23 <Mitch Hurst MD - Last Filed: 07/16/22 18:20> Labs: Lab Results 07/16/22 07/16/22 07/16/22 Range/Units 18:23 18:23 19:30 WBC 6.5 (4.8-10.8) X10*3/uL RBC 4.55 L (4.60-5.80) X10*6/uL Hgb 13.7 L (14.0-18.0) g/dl Hct 41.7 L (42.0-52.0) % MCV 91.6 (80.0-98.0) fL MCH 30.1 (27.0-33.0) pg MCHC 32.9 (31.0-36.0) g/dl RDW 12.6 (11.0-16.0) % Plt Count 247 (160-400) X10*3/uL MPV 8.9 L (9.4-12.4) fL Immature Gran % (Auto) 0.0 (0.0-0.4) % Neut % (Auto) 52.9 (45-73) % Lymph % (Auto) 37.5 (20-40) % Milam % (Auto) 5.9 (2-11) % Eos % (Auto) 2.9 (0-4) % Baso % (Auto) 0.8 (0-2) % Lymph # (Auto) 2.4 (1.2-4.9) X10*3/uL Milam # (Auto) 0.4 (0.1-1.2) X10*3/uL Eos # (Auto) 0.2 (0.0-0.4) X10*3/uL Baso # (Auto) 0.1 (0.0-0.2) X10*3/uL Abs Immat Gran (auto) 0.00 (0.00-0.03) X10*3/uL Absolute Neuts (auto) 3.4 (2.0-8.3) x10*3/uL Absolute Nucleated RBC 0.000 (0.0-0.012) X10*3/uL Nucleated RBC % (auto) 0.0 (0.0-0.2) /100WBC Sodium 141 (135-145) mmol/L Potassium 3.5 (3.3-5.1) mmol/L Chloride 105 (96-108) mmol/L Carbon Dioxide 30 H (22-29) mmol/L Anion Gap 10 L (12-20) BUN 10 (9-16) mg/dL Creatinine 0.76 (0.5-1.4) mg/dL Estim Creat Clear Calc 79.7 Estimated GFR > 60 Random Glucose 125 H (60-115) mg/dL Calcium 9.2 D (8.4-10.2) mg/dL Total Bilirubin 0.3 (0.0-1.0) mg/dL AST 18 (5-37) U/L ALT 12 (0-40) U/L Alkaline Phosphatase 116 (39-117) U/L Total Protein 7.2 (6.5-8.0) g/dL Albumin 4.2 (3.5-5.0) g/dL Urine Color [place] A Urine Appearance Cloudy Urine pH 6.5 (5.0-9.0) Ur Specific [place] 1.015 (1.005-1.025) Urine Protein 100 (2+) H (Neg-Trace) mg/dL Urine Glucose (UA) Negative (Negative) mg/dL Urine Ketones Negative (Negative) mg/dL Urine Blood Large (3+) H (Negative) Urine Nitrite Negative (Negative) Ur Leukocyte Esterase Small (1+) H (Negative) Urine RBC >20 H (0-2) /HPF Urine WBC 0-5 (0-5) /HPF Ur Squamous Epith Cells 0-2 (0-2) /HPF Urine Bacteria None Seen (None Seen) Hyaline Casts 0-2 (0-2) /LPF <Mitch Hurst MD - Last Filed: 07/16/22 18:20> Lab Results 07/16/22 07/16/22 07/16/22 Range/Units 18:23 18:23 19:30 WBC 6.5 (4.8-10.8) X10*3/uL RBC 4.55 L (4.60-5.80) X10*6/uL Hgb 13.7 L (14.0-18.0) g/dl Hct 41.7 L (42.0-52.0) % MCV 91.6 (80.0-98.0) fL MCH 30.1 (27.0-33.0) pg MCHC 32.9 (31.0-36.0) g/dl RDW 12.6 (11.0-16.0) % Plt Count 247 (160-400) X10*3/uL MPV 8.9 L (9.4-12.4) fL Immature Gran % (Auto) 0.0 (0.0-0.4) % Neut % (Auto) 52.9 (45-73) % Lymph % (Auto) 37.5 (20-40) % Milam % (Auto) 5.9 (2-11) % Eos % (Auto) 2.9 (0-4) % Baso % (Auto) 0.8 (0-2) % Lymph # (Auto) 2.4 (1.2-4.9) X10*3/uL Milam # (Auto) 0.4 (0.1-1.2) X10*3/uL Eos # (Auto) 0.2 (0.0-0.4) X10*3/uL Baso # (Auto) 0.1 (0.0-0.2) X10*3/uL Abs Immat Gran (auto) 0.00 (0.00-0.03) X10*3/uL Absolute Neuts (auto) 3.4 (2.0-8.3) x10*3/uL Absolute Nucleated RBC 0.000 (0.0-0.012) X10*3/uL Nucleated RBC % (auto) 0.0 (0.0-0.2) /100WBC Sodium 141 (135-145) mmol/L Potassium 3.5 (3.3-5.1) mmol/L Chloride 105 (96-108) mmol/L Carbon Dioxide 30 H (22-29) mmol/L Anion Gap 10 L (12-20) BUN 10 (9-16) mg/dL Creatinine 0.76 (0.5-1.4) mg/dL Estim Creat Clear Calc 79.7 Estimated GFR > 60 Random Glucose 125 H (60-115) mg/dL Calcium 9.2 D (8.4-10.2) mg/dL Total Bilirubin 0.3 (0.0-1.0) mg/dL AST 18 (5-37) U/L ALT 12 (0-40) U/L Alkaline Phosphatase 116 (39-117) U/L Total Protein 7.2 (6.5-8.0) g/dL Albumin 4.2 (3.5-5.0) g/dL Urine Color [place] A Urine Appearance Cloudy Urine pH 6.5 (5.0-9.0) Ur Specific [place] 1.015 (1.005-1.025) Urine Protein 100 (2+) H (Neg-Trace) mg/dL Urine Glucose (UA) Negative (Negative) mg/dL Urine Ketones Negative (Negative) mg/dL Urine Blood Large (3+) H (Negative) Urine Nitrite Negative (Negative) Ur Leukocyte Esterase Small (1+) H (Negative) Urine RBC >20 H (0-2) /HPF Urine WBC 0-5 (0-5) /HPF Ur Squamous Epith Cells 0-2 (0-2) /HPF Urine Bacteria None Seen (None Seen) Hyaline Casts 0-2 (0-2) /LPF <MARY ANN Osullivan - Last Filed: 07/16/22 18:56> Lab Results 07/16/22 07/16/22 07/16/22 Range/Units 18:23 18:23 19:30 WBC 6.5 (4.8-10.8) X10*3/uL RBC 4.55 L (4.60-5.80) X10*6/uL Hgb 13.7 L (14.0-18.0) g/dl Hct 41.7 L (42.0-52.0) % MCV 91.6 (80.0-98.0) fL MCH 30.1 (27.0-33.0) pg MCHC 32.9 (31.0-36.0) g/dl RDW 12.6 (11.0-16.0) % Plt Count 247 (160-400) X10*3/uL MPV 8.9 L (9.4-12.4) fL Immature Gran % (Auto) 0.0 (0.0-0.4) % Neut % (Auto) 52.9 (45-73) % Lymph % (Auto) 37.5 (20-40) % Milam % (Auto) 5.9 (2-11) % Eos % (Auto) 2.9 (0-4) % Baso % (Auto) 0.8 (0-2) % Lymph # (Auto) 2.4 (1.2-4.9) X10*3/uL Milam # (Auto) 0.4 (0.1-1.2) X10*3/uL Eos # (Auto) 0.2 (0.0-0.4) X10*3/uL Baso # (Auto) 0.1 (0.0-0.2) X10*3/uL Abs Immat Gran (auto) 0.00 (0.00-0.03) X10*3/uL Absolute Neuts (auto) 3.4 (2.0-8.3) x10*3/uL Absolute Nucleated RBC 0.000 (0.0-0.012) X10*3/uL Nucleated RBC % (auto) 0.0 (0.0-0.2) /100WBC Sodium 141 (135-145) mmol/L Potassium 3.5 (3.3-5.1) mmol/L Chloride 105 (96-108) mmol/L Carbon Dioxide 30 H (22-29) mmol/L Anion Gap 10 L (12-20) BUN 10 (9-16) mg/dL Creatinine 0.76 (0.5-1.4) mg/dL Estim Creat Clear Calc 79.7 Estimated GFR > 60 Random Glucose 125 H (60-115) mg/dL Calcium 9.2 D (8.4-10.2) mg/dL Total Bilirubin 0.3 (0.0-1.0) mg/dL AST 18 (5-37) U/L ALT 12 (0-40) U/L Alkaline Phosphatase 116 (39-117) U/L Total Protein 7.2 (6.5-8.0) g/dL Albumin 4.2 (3.5-5.0) g/dL Urine Color [place] A Urine Appearance Cloudy Urine pH 6.5 (5.0-9.0) Ur Specific [place] 1.015 (1.005-1.025) Urine Protein 100 (2+) H (Neg-Trace) mg/dL Urine Glucose (UA) Negative (Negative) mg/dL Urine Ketones Negative (Negative) mg/dL Urine Blood Large (3+) H (Negative) Urine Nitrite Negative (Negative) Ur Leukocyte Esterase Small (1+) H (Negative) Urine RBC >20 H (0-2) /HPF Urine WBC 0-5 (0-5) /HPF Ur Squamous Epith Cells 0-2 (0-2) /HPF Urine Bacteria None Seen (None Seen) Hyaline Casts 0-2 (0-2) /LPF <Jane Mendosa CNP - Last Filed: 07/16/22 22:07> Independent Historian Clinical information obtained from an independent historian. History obtained from or confirmed by: Other (Daughter vice president of business development) <MARY ANN Osullivan - Last Filed: 07/16/22 18:56> External Record Review External record reviewed: Office record, Outpatient record, Prior outpatient labs, Prior outpatient radiology, Primary care record and Outside ED record <MARY ANN Osullivan - Last Filed: 07/16/22 18:56> Chronic Conditions Patient?s care impacted by: Diabetes, Hypertension and Other (Hemorrhagic stroke with left-sided hemiparesis, recurrent UTIs) <MARY ANN Osullivan - Last Filed: 07/16/22 18:56> Critical Care Time Critical Care Time Critical Care Time: Yes <MARY ANN Osullivan - Last Filed: 07/16/22 18:56> Total Critical Care Time: 60 <MARY ANN Osullivan - Last Filed: 07/16/22 18:56> Attestation: I personally attest to this time spent taking care of the patient <MARY ANN Osullivan - Last Filed: 07/16/22 18:56> Discharge Plan Discharge Clinical Impression: Acute urinary retention <Mitch Hurst MD - Last Filed: 07/16/22 18:20> Patient Disposition: Home, Self-Care <Mitch Hurst MD - Last Filed: 07/16/22 18:20> Additional Instructions: No evidence of urinary tract infection at this time, urine culture was sent to the lab results will be available within a few days CT indicates bilateral kidney stones, however there is no evidence of blockage or obstruction which is reassuring. Follow-up with primary care provider and Urology as scheduled Return to the emergency department any new or worsening symptoms or concerns <Mitch Hurst MD - Last Filed: 07/16/22 18:20> Prescriptions: No Action cefuroxime axetil 500 mg tablet 500 mg PO BID Qty: 20 0RF <Mitch Hurst MD - Last Filed: 07/16/22 18:20>
[2022-07-16 18:27] LABS: Basophils Absolute Auto 0.1 X10*3/uL (0.0-0.2); Basophils Percent Auto 0.8 % (0-2); Eosinophils Absolute Auto 0.2 X10*3/uL (0.0-0.4); Eosinophils Percent Auto 2.9 % (0-4); Hematocrit 41.7 % (42.0-52.0); Hemoglobin 13.7 g/dl (14.0-18.0); Lymphocytes Absolute Auto 2.4 X10*3/uL (1.2-4.9); Lymphocytes Percent Auto 37.5 % (20-40); MANUAL DIFF FLAG NO; Mean Corpuscular HGB Conc 32.9 g/dl (31.0-36.0); Mean Corpuscular Hemoglobin 30.1 pg (27.0-33.0); Mean Corpuscular Volume 91.6 fL (80.0-98.0); Mean Platelet Volume 8.9 fL (9.4-12.4); Monocytes Absolute Auto 0.4 X10*3/uL (0.1-1.2); Monocytes Percent Auto 5.9 % (2-11); Neutrophils Absolute Auto 3.4 x10*3/uL (2.0-8.3); Neutrophils Percent Auto 52.9 % (45-73); Platelet Count 247 X10*3/uL (160-400); Red Blood Count 4.55 X10*6/uL (4.60-5.80); Red Cell Distribution Width 12.6 % (11.0-16.0); White Blood Count 6.5 X10*3/uL (4.8-10.8)
[2022-07-16 18:42] LABS: Alanine Aminotransferase 12 U/L (0-40); Albumin Level 4.2 g/dL (3.5-5.0); Alkaline Phosphatase 116 U/L (39-117); Anion Gap 10 (12-20); Aspartate Amino Transferase 18 U/L (5-37); Bilirubin Total 0.3 mg/dL (0.0-1.0); Blood Urea Nitrogen 10 mg/dL (9-16); Calcium 9.2 mg/dL (8.4-10.2); Carbon Dioxide 30 mmol/L (22-29); Chloride 105 mmol/L (96-108); Creatinine Clr Calc Pharmacy 79.7; Estimated Glomerular Filt Rate > 60; Glucose Random 125 mg/dL (60-115); Potassium 3.5 mmol/L (3.3-5.1); Sodium 141 mmol/L (135-145); Total Protein 7.2 g/dL (6.5-8.0)
[2022-07-16] MEDS: Lidocaine HCl 2 % Urojet 10 ML JEL.PF.APP TOPICAL (18:59)
[2022-07-16] MEDS: Lidocaine HCl 2 % Urojet 10 ML JEL.PF.APP 20 ML TOPICAL (19:32)
--- NOTE | 2022-07-16 19:34 | PC.NURSE ---
Addendum entered by Leah Chen LPN 07/16/22 19:37: UA sent per order Original Note: 16fr coude le placed with 30cc balloon with assistance of MD Yu. #3 Lidocaine 2% urojets used, le secured with stat lock and attached to drainage bag. Patent draining tea colored urine, procedure well tolerated by pt
[2022-07-16 20:02] LABS: Appearance Urine Cloudy; Color Urine Orange; Glucose Urine UA Negative (Negative); Leukocyte Esterase Urine Small (1+) (Negative); Nitrite Urine Negative (Negative); PH 6.5 (5.0-9.0); Specific Gravity - Urine 1.015 (1.005-1.025); UMIC TRIGGER UACC YES; Urine Blood Large (3+) (Negative); Urine Ketones Negative (Negative); Urine Protein 100 (2+) mg/dL (Neg-Trace)
[2022-07-16 20:03] LABS: Bacteria Urine None Seen (None Seen); Hyaline Casts Urine 0-2 /LPF (0-2); RBC Urine >20 /HPF (0-2); Squamous Epithelial Cell Urine 0-2 /HPF (0-2); UACC Culture Trigger YES; WBC Urine 0-5 /HPF (0-5)
[2022-07-16 20:56] VITALS: BP 120/64; PULSE 73; RESP 14; TEMP 36.6; O2SAT 97
== END 2022-07-16 22:14 | disposition home or self-care (01) ==
PROVIDERS: Emergency Medicine Emergency Medical Services; Emergency Provider Emergency Medicine; PCP Internal Medicine Geriatric Medicine
DX: R33.9 Retention of urine, unspecified (principal); N20.0 Calculus of kidney; D64.9 Anemia, unspecified; I69.354 Hemiplegia and hemiparesis following cerebral infarction affecting left non-dominant side; I10 Essential (primary) hypertension; E78.5 Hyperlipidemia, unspecified; Z86.718 Personal history of other venous thrombosis and embolism; Z79.01 Long term (current) use of anticoagulants; Z87.440 Personal history of urinary (tract) infections; Z99.3 Dependence on wheelchair
CPT/HCPCS: 36415; 51702; 51798; 74176; 80053; 81001; 85025; 87086; 99284

== ENCOUNTER → 2022-07-17 11:40 | Outpatient (BNVA) | payer MEDICARE, OTHER, SELFPAY | PROVIDERS: PCP Internal Medicine Geriatric Medicine; Visit Provider Nurse Practitioner Family | DX: N20.0 Calculus of kidney (principal); R33.9 Retention of urine, unspecified; R31.9 Hematuria, unspecified | CPT/HCPCS: Q3014 ==

== ENCOUNTER 2022-07-23 15:29 | Outpatient (REF) | payer MEDICARE, OTHER, SELFPAY ==
--- NOTE | ~2022-07-23 | US_ITS ---
EXAMINATION: US RETROPERITONEAL LIMITED (RENAL ONLY) CLINICAL INFORMATION: Calculus of kidney. COMPARISON: CT of the abdomen and pelvis 07/16/2022. Renal ultrasound 07/10/2022. TECHNIQUE: Real-time imaging of the kidneys. FINDINGS: RIGHT KIDNEY: 11.1 x 7.0 x 5.5 cm (SAG x AP x TRV). The kidney is normal in size, contour, and echogenicity. Renal cortical thickness is normal. A 5 mm calculus is present which corresponds to the calcification seen on the 07/16/2022 study. No hydronephrosis. Lower pole cysts are present, the largest measuring 2.4 cm which is unchanged from the prior CT scan. No solid renal mass. LEFT KIDNEY: 14.9 x 6.0 x 4.5 cm (SAG x AP x TRV). The kidney is normal in size, contour, and echogenicity. Renal cortical thickness is normal. There is a lower pole 7 mm echogenic calculus seen corresponding to the stone seen at the same location on 07/16/2022 study. There is no hydronephrosis. Upper pole benign simple cysts are present, the largest 4.6 cm, similar to the prior CT. No solid renal masses. US/US renal BI IMPRESSION: Bilateral nonobstructing renal calculi. Bilateral benign simple renal cysts.
== END 2022-07-23 15:30 | disposition home or self-care (01) ==
LOC: HO.US 15:29
PROVIDERS: Visit Provider Nurse Practitioner Family
DX: N20.0 Calculus of kidney (principal)
CPT/HCPCS: 76775

== ENCOUNTER 2022-07-31 09:34 | Outpatient (REF) | payer MEDICARE, OTHER, SELFPAY ==
[2022-07-31 17:50] LABS: Urine Cytology See Pathology rpt
== END 2022-07-31 09:35 | disposition home or self-care (01) ==
LOC: HO.LAB 09:34
PROVIDERS: PCP Internal Medicine Geriatric Medicine; Visit Provider Nurse Practitioner Family
DX: R31.9 Hematuria, unspecified (principal); R33.9 Retention of urine, unspecified; N20.0 Calculus of kidney
CPT/HCPCS: 51700; 51702; 51798; 87086; 87088; 87186; 88112; 99212

== ENCOUNTER → 2022-08-26 08:52 | Outpatient (BNVA) | payer MEDICARE, MEDICAID, SELFPAY | PROVIDERS: PCP Internal Medicine Geriatric Medicine; Visit Provider Urology | DX: N31.9 Neuromuscular dysfunction of bladder, unspecified (principal); R33.9 Retention of urine, unspecified | CPT/HCPCS: 51702; 52000; 52005; 99212 ==

== ENCOUNTER → 2022-09-26 09:49 | Outpatient (BNVA) | payer MEDICARE, MEDICAID, SELFPAY | PROVIDERS: PCP Internal Medicine Geriatric Medicine; Visit Provider Urology | DX: N31.9 Neuromuscular dysfunction of bladder, unspecified (principal) | CPT/HCPCS: 51702 ==

== ENCOUNTER → 2022-10-28 09:43 | Outpatient (BNVA) | payer MEDICARE, SELFPAY | PROVIDERS: PCP Internal Medicine Geriatric Medicine; Visit Provider Urology | DX: N31.9 Neuromuscular dysfunction of bladder, unspecified (principal) | CPT/HCPCS: 51702 ==

== ENCOUNTER → 2022-11-25 09:54 | Outpatient (BNVA) | payer MEDICARE, MEDICAID, SELFPAY | PROVIDERS: PCP Internal Medicine Geriatric Medicine; Visit Provider Urology | DX: N31.9 Neuromuscular dysfunction of bladder, unspecified (principal) | CPT/HCPCS: 51702 ==

== ENCOUNTER → 2022-12-23 09:46 | Outpatient (BNVA) | payer MEDICARE, MEDICAID, SELFPAY | PROVIDERS: PCP Internal Medicine Geriatric Medicine; Visit Provider Urology | DX: Z46.6 Encounter for fitting and adjustment of urinary device (principal); N31.9 Neuromuscular dysfunction of bladder, unspecified | CPT/HCPCS: 51702 ==

== ENCOUNTER 2023-01-07 14:07 | Outpatient (REF) | payer MEDICARE, MEDICAID, SELFPAY ==
[2023-01-07 15:16] LABS: Appearance Urine Cloudy; Color Urine Yellow; Glucose Urine UA Negative (Negative); Leukocyte Esterase Urine Large (3+) (Negative); Nitrite Urine Negative (Negative); Specific Gravity - Urine <= 1.005 (1.005-1.025); UMIC TRIGGER UA YES; Urine Blood Trace (Negative); Urine Ketones Negative (Negative); Urine Protein Negative (Neg-Trace)
[2023-01-07 15:24] LABS: Bacteria Urine 4+ (None Seen); Hyaline Casts Urine 0-2 /LPF (0-2); RBC Urine 0-2 /HPF (0-2); WBC Urine 21-50 /HPF (0-5)
== END 2023-01-07 14:08 | disposition home or self-care (01) ==
LOC: HO.LAB 14:07
PROVIDERS: PCP Internal Medicine Geriatric Medicine; Visit Provider Urology
DX: R33.9 Retention of urine, unspecified (principal); N31.9 Neuromuscular dysfunction of bladder, unspecified
CPT/HCPCS: 81001; 87086; 87088; 87186

== ENCOUNTER → 2023-01-20 10:00 | Outpatient (BNVA) | payer MEDICARE, MEDICAID, SELFPAY | PROVIDERS: Visit Provider Urology | DX: Z46.6 Encounter for fitting and adjustment of urinary device (principal); N31.9 Neuromuscular dysfunction of bladder, unspecified | CPT/HCPCS: 51702 ==

== ENCOUNTER → 2023-02-06 09:44 | Outpatient (BNVA) | payer MEDICARE, MEDICAID, SELFPAY | PROVIDERS: PCP Internal Medicine Geriatric Medicine; Visit Provider Urology | DX: N31.9 Neuromuscular dysfunction of bladder, unspecified (principal) | CPT/HCPCS: 51702 ==

== ENCOUNTER 2023-03-03 08:51 | Outpatient (AMB) | payer MEDICARE, MEDICAID, SELFPAY ==
--- NOTE | 2023-03-03 08:54 | AM.OFFVISNUR ---
Intake Intake Visit Reasons: 4w cath change Allergies No Known Allergies Allergy (Verified 08/26/22 09:05) Office Procedures Bladder/Catheter Procedure Details: 16 fr le cath exchanged with new 16 fr tisha catheter 10 mls balloon and flip valve, pt tolerated exchange well. [id number] Temporary Bladder Catheter Procedure code (CPT) selection complete Coding Diagnoses CPT Codes Bladder/Catheter Procedure - CPT: 20477-[id number] Temporary Bladder Catheter ([id number]) Assessment & Plan Assessment & Plan Orders: Orders AMB Bladder/Catheter Procedure Today N31.9 - Neuromuscular dysfunction of bladder, unspecified
== END 2023-03-03 09:05 | disposition home or self-care (01) ==
PROVIDERS: PCP Internal Medicine Geriatric Medicine; Visit Provider Urology
DX: N31.9 Neuromuscular dysfunction of bladder, unspecified (principal)

== ENCOUNTER → 2023-03-03 08:51 | Outpatient (BNVA) | payer MEDICARE, MEDICAID, SELFPAY | PROVIDERS: PCP Internal Medicine Geriatric Medicine; Visit Provider Urology | DX: N31.9 Neuromuscular dysfunction of bladder, unspecified (principal) | CPT/HCPCS: 51702 ==

== ENCOUNTER 2023-03-30 11:11 | Emergency (ER) | payer MEDICARE, MEDICAID, SELFPAY ==
--- NOTE | ~2023-03-30 | XR_ITS ---
EXAMINATION: XR CHEST CLINICAL INFORMATION: hypotension r/o sepsis pneumonia COMPARISON: 06/11/2022 TECHNIQUE: Frontal view of the chest was obtained. FINDINGS: Multiple calcifications overlying the right upper lobe are unchanged as compared to prior and most likely correspond to calcified granulomas. No consolidation, pneumothorax, or pleural effusion. EKG leads overlie the chest. Cardiac and mediastinal contours are normal. Pulmonary vasculature is unremarkable. Mild degenerative spondylosis in the thoracic spine. Osteoarthritis is present in the acromioclavicular and glenohumeral joints. Bones are osteopenic XR/XR chest 1V IMPRESSION: 1. No acute pulmonary disease. 2. Calcified granulomas in the right upper lobe.
--- NOTE | ~2023-03-30 | XR_ITS ---
EXAMINATION: XR LEFT HIP WITH AP PELVIS CLINICAL INFORMATION: Pain. COMPARISON: 07/16/2022 TECHNIQUE: AP and frog-leg lateral views of the left hip and an AP view of the pelvis. FINDINGS: Bones are osteopenic. Mild axial joint space narrowing at the hips bilaterally. Tiny marginal osteophytes. SI joints and pubic symphysis are normal. Small 3 mm focus of calcific tendinitis at the gluteus minimus insertion on the greater tuberosity. Multiple phleboliths in the pelvis. XR/XR hip LT w PEL1V IMPRESSION: 1. Mild osteoarthritis in the hips. 2. Small focus of calcific tendinitis at the left gluteus minimus insertion.
[2023-03-30 11:16] VITALS: BP 107/63; BP 92/54; PULSE 64; PULSE 68; RESP 13; TEMP 36.4; O2SAT 96; BMI 22.3
--- NOTE | 2023-03-30 11:42 | PC.NURSE ---
hx of seizure, daughter called d/t possible seizure . found pt unresponsive. per ems pt a+o x4 on arrival on scene. pt reports L leg pain and weakness caused him to fall, known L sided weakness. pt a+o x4 on arrival to ed. denies cardoza/dizziness/cp/fever/chills/n/v.
--- NOTE | 2023-03-30 11:57 | ECG_ITS ---
Test Reason : FALL Blood Pressure : / mmHG Vent. Rate : 064 BPM Atrial Rate : 064 BPM P-R Int : 174 ms QRS Dur : 084 ms QT Int : 406 ms P-R-T Axes : 056 019 030 degrees QTc Int : 418 ms Normal sinus rhythm Inferior infarct , age undetermined Abnormal ECG When compared with ECG of 11-JUN-2022 17:23, Nonspecific T wave abnormality is no longer Present Referred By: Daisy Floyd Electronically Signed By:OPAL ARAGON
--- NOTE | 2023-03-30 11:59 | ED.GENADULT ---
HPI - General Adult General Chief complaint: Seizure Stated complaint: LOW BLOOD PRESSURE HX OF SEIZURES Time Seen by Provider: 03/30/23 11:40 Source: patient and EMS Mode of arrival: EMS Limitations: no limitations History of Present Illness HPI narrative: 62-year-old male with PMHx of hemorrhagic stroke in 2018 with left hemiparesis wheelchair/bed bound, tonic clonic seizure since 2019, essential HTN, DVT a on AC, recurrent UTI. patient was having a bowel movement sitting on the toilet seat when his chart have abdominal gas and felt left hip pain patient declined LOC but according to EMS patient was unresponsive in the in the bathroom and his blood pressure on the low side. Patient now is awake, alert, oriented x3. Complaining of left hip pain that started when he tried to get up from the toilet seat. Related Data Home Medications Medication Instructions Recorded Confirmed apixaban 5 mg tablet (Eliquis) 5 mg PO BID 07/17/22 07/17/22 amlodipine 10 mg tablet 10 mg PO DAILY 08/26/22 tamsulosin 0.4 mg capsule 0.4 mg PO DAILY 08/26/22 Previous Rx's Medication Instructions Recorded sulfamethoxazole 800 1 tab PO BID 5 days #10 tabs 09/26/22 mg-trimethoprim 160 mg tablet (Bactrim DS) ascorbic acid (vitamin C) 1,000 mg 1 g PO DAILY 90 days #90 tabs 12/05/22 tablet finasteride 5 mg tablet 5 mg PO DAILY 90 days #90 tabs 12/05/22 sulfamethoxazole 800 1 tab PO .COMPLEX #30 tabs 12/23/22 mg-trimethoprim 160 mg tablet (Bactrim DS) levofloxacin 500 mg tablet 500 mg PO DAILY 7 days #7 tabs 01/09/23 terazosin 10 mg capsule 10 mg PO BEDTIME 90 days #90 caps 01/15/23 sulfamethoxazole 800 1 tab PO BID prostatitis 14 days 01/20/23 mg-trimethoprim 160 mg tablet #28 tabs (Bactrim DS) oxybutynin chloride 5 mg tablet 5 mg PO BID PRN bladder spasms #60 02/23/23 tabs methenamine hippurate 1 gram tablet 1 g PO DAILY 90 days #90 tabs 02/26/23 nitrofurantoin 100 mg PO Q12H 7 days #14 caps 09/04/23 monohydrate/macrocrystals 100 mg capsule (Macrobid) Allergies Allergy/AdvReac Type Severity Reaction Status Date / Time Seasonal Allergies Allergy Itchy Eyes Verified 03/30/23 11:34 Review of Systems Review of Systems: All other systems are reviewed and are negative Constitutional: Reports as per HPI and Reports no additional constitutional complaints Eyes: Reports as per HPI and Reports no additional eye complaints Reports system reviewed and no additional complaints, except as documented Cardiovascular: Reports as per HPI and Reports no additional cardiovascular complaints Respiratory: Reports as per HPI and Reports no additional respiratory complaints Gastrointestinal: Reports as per HPI and Reports no additional gastrointestinal complaints Genitourinary: Reports no additional female genitourinary complaints Musculoskeletal: Reports no additional musculoskeletal complaints Skin/Breast: Reports system reviewed and no additional complaints, except as docu Psychiatric: Reports no additional psychiatric complaints Endocrine: Reports no additional endocrine complaints Hematologic/Lymphatic: Reports no additional hematologic/lymphatic complaints Allergic/Immunologic: Reports no additional allergic/immunologic complaints Reports system reviewed and no additional complaints, except as documented and Reports Abnormal speech present [facility] Past Medical History Medical History Arterial ischemic stroke, MCA (middle cerebral artery), right, chronic Chronic anticoagulation DVT of lower extremity, bilateral Hemiparesis affecting left side as late effect of cerebrovascular accident (CVA) Hyperlipidemia Hypertension Nephrolithiasis Recurrent UTI Tonic-clonic seizures Social History Social History Use of substances other than those prescribed or required for medical reasons: No Advance Directives: No Physical Exam ED Vital Signs: Vital Signs - 24 hr 03/30/23 11:16 03/30/23 15:20 Temperature 97.6 F 98.2 F Pulse Rate 68 68 Respiratory Rate 13 12 Blood Pressure 107/63 129/68 Pulse Oximetry 96 95 Oxygen Delivery Method Room Air Room Air BMI result Body Mass Index 22.3 vital signs have been reviewed as appeared to be correct. Blood pressure normal. Heart rate normal. Respiration rate normal. Temperature normal. Oxygen saturation normal. Appearance: Alert. Oriented X3. No acute distress. Head: Normal external exam. Normocephalic. Atraumatic. No Jenkins signs noted. No raccoon eyes noted Eyes: PERRLA. EOMI. Conjunctiva and sclera normal. Eyelids normal. ENT: TM's Normal. Pharynx normal. Uvula midline. Moist mucous membranes. No trismus noted. No drooling noted. No muffled voice noted. Neck: Normal inspection. Neck supple. FROM. No adenopathy. Thyroid Normal. No meningeal signs. No neck mass noted. CVS: Normal heart rate and rhythm. Heart sound normal. No murmurs noted. Pulses normal throughout. Respiratory: No respiratory distress. Painless inspiration. Breath sounds normal. No wheezes/rales/rhonchi noted. Chest nontender. No accessory muscle usage noted or decreased air movement noted. Abdomen: Soft and nontender. Bowel sounds normal in all 4 quadrants. No distention noted. No organomegaly noted. No visible injury noted. Back: No CVA tenderness. Full range of motion noted. Skin: Skin warm and dry. Normal skin color. Normal skin turgor. No rashes/lesions/lacerations noted. Extremities: No lower extremity edema. Extremities exhibit normal range of motion. Extremities nontender. Neuro: Oriented X 3. Cranial nerve exam: II-XII are grossly intact No motor deficit. No sensory deficit. Reflexes normal. Course Course Course Narrative: 62-year-old male with left hemiparesis presented after feeling generalized weakness, with a concern of hypotension patient came in with Bosch catheter that was changed today and fresh urine was sent today showing a UTI, no criteria for sepsis. patient has been maintaining blood pressure while in the emergency department, labs are unremarkable. Bosch catheter was changed today. Medications Administered Discontinued Medications Generic Name Dose Route Start Last Admin Trade Name Freq PRN Reason Stop Dose Admin Sodium Chloride 1,000 mls @ 999 mls/hr 03/30/23 11:56 03/30/23 13:48 Ns IV 03/30/23 12:56 Infused .Q1H1M ONE Infusion Medical Decision Making Differential Diagnosis Differential Diagnoses: The differential diagnosis associated with the presentation includes ( UTI, electrolyte abnormality, sepsis, severe anemia.) Admission/Observation Consideration of admission/observation: Escalation of care including admission/observation considered Lab Data MDM Lab Attestation statement: I reviewed the patient's lab results. 03/30/23 12:28 03/30/23 12:28 Labs: Lab Results 03/30/23 03/30/23 03/30/23 Range/Units 12:28 12:28 12:28 WBC 10.9 H (4.8-10.8) X10*3/uL RBC 4.62 (4.60-5.80) X10*6/uL Hgb 14.1 (14.0-18.0) g/dl Hct 43.0 (42.0-52.0) % MCV 93.1 (80.0-98.0) fL MCH 30.5 (27.0-33.0) pg MCHC 32.8 (31.0-36.0) g/dl RDW 12.4 (11.0-16.0) % Plt Count 216 (160-400) X10*3/uL MPV 8.7 L (9.4-12.4) fL Immature Gran % (Auto) 0.4 (0.0-0.4) % Neut % (Auto) 79.4 H (45-73) % Lymph % (Auto) 14.3 L (20-40) % Morrill % (Auto) 4.9 (2-11) % Eos % (Auto) 0.6 (0-4) % Baso % (Auto) 0.4 (0-2) % Lymph # (Auto) 1.6 (1.2-4.9) X10*3/uL Morrill # (Auto) 0.5 (0.1-1.2) X10*3/uL Eos # (Auto) 0.1 (0.0-0.4) X10*3/uL Baso # (Auto) 0.0 (0.0-0.2) X10*3/uL Abs Immat Gran (auto) 0.04 H (0.00-0.03) X10*3/uL Absolute Neuts (auto) 8.7 H (2.0-8.3) x10*3/uL Absolute Nucleated RBC 0.000 (0.0-0.012) X10*3/uL Nucleated RBC % (auto) 0.0 (0.0-0.2) /100WBC Sodium 144 (135-145) mmol/L Potassium 3.9 (3.3-5.1) mmol/L Chloride 110 H (96-108) mmol/L Carbon Dioxide 27 (22-29) mmol/L Anion Gap 11 L (12-20) BUN 14 (9-16) mg/dL Creatinine 0.89 (0.5-1.4) mg/dL Estim Creat Clear Calc 74.2 Estimated GFR > 60 Random Glucose 122 H (60-115) mg/dL Calcium 9.1 (8.4-10.2) mg/dL Total Bilirubin 0.4 (0.0-1.0) mg/dL Direct Bilirubin 0.1 (0.0-0.5) mg/dL AST 15 (5-37) U/L ALT 9 (0-40) U/L Alkaline Phosphatase 83 (39-117) U/L Troponin I High Sens < 2.7 (<3.5-35.0) ng/L Total Protein 7.0 (6.5-8.0) g/dL Albumin 3.9 (3.5-5.0) g/dL Lipase 24 (8-78) U/L Urine Color Urine Appearance Urine pH (5.0-9.0) Ur Specific Roscoe (1.005-1.025) Urine Protein (Neg-Trace) mg/dL Urine Glucose (UA) (Negative) mg/dL Urine Ketones (Negative) mg/dL Urine Blood (Negative) Urine Nitrite (Negative) Ur Leukocyte Esterase (Negative) Urine RBC (0-2) /HPF Urine WBC (0-5) /HPF Ur Squamous Epith Cells (0-2) /HPF Urine Bacteria (None Seen) Hyaline Casts (0-2) /LPF 03/30/23 Range/Units 13:50 WBC (4.8-10.8) X10*3/uL RBC (4.60-5.80) X10*6/uL Hgb (14.0-18.0) g/dl Hct (42.0-52.0) % MCV (80.0-98.0) fL MCH (27.0-33.0) pg MCHC (31.0-36.0) g/dl RDW (11.0-16.0) % Plt Count (160-400) X10*3/uL MPV (9.4-12.4) fL Immature Gran % (Auto) (0.0-0.4) % Neut % (Auto) (45-73) % Lymph % (Auto) (20-40) % Morrill % (Auto) (2-11) % Eos % (Auto) (0-4) % Baso % (Auto) (0-2) % Lymph # (Auto) (1.2-4.9) X10*3/uL Morrill # (Auto) (0.1-1.2) X10*3/uL Eos # (Auto) (0.0-0.4) X10*3/uL Baso # (Auto) (0.0-0.2) X10*3/uL Abs Immat Gran (auto) (0.00-0.03) X10*3/uL Absolute Neuts (auto) (2.0-8.3) x10*3/uL Absolute Nucleated RBC (0.0-0.012) X10*3/uL Nucleated RBC % (auto) (0.0-0.2) /100WBC Sodium (135-145) mmol/L Potassium (3.3-5.1) mmol/L Chloride (96-108) mmol/L Carbon Dioxide (22-29) mmol/L Anion Gap (12-20) BUN (9-16) mg/dL Creatinine (0.5-1.4) mg/dL Estim Creat Clear Calc Estimated GFR Random Glucose (60-115) mg/dL Calcium (8.4-10.2) mg/dL Total Bilirubin (0.0-1.0) mg/dL Direct Bilirubin (0.0-0.5) mg/dL AST (5-37) U/L ALT (0-40) U/L Alkaline Phosphatase (39-117) U/L Troponin I High Sens (<3.5-35.0) ng/L Total Protein (6.5-8.0) g/dL Albumin (3.5-5.0) g/dL Lipase (8-78) U/L Urine Color Yellow Urine Appearance Cloudy Urine pH 6.5 (5.0-9.0) Ur Specific Roscoe 1.020 (1.005-1.025) Urine Protein 30 (1+) H (Neg-Trace) mg/dL Urine Glucose (UA) Negative (Negative) mg/dL Urine Ketones Negative (Negative) mg/dL Urine Blood Large (3+) H (Negative) Urine Nitrite Positive H (Negative) Ur Leukocyte Esterase Moderate (2+) H (Negative) Urine RBC >20 H (0-2) /HPF Urine WBC >50 H (0-5) /HPF Ur Squamous Epith Cells 0-2 (0-2) /HPF Urine Bacteria 2+ (None Seen) Hyaline Casts 0-2 (0-2) /LPF Independent Interpretation I performed an independent interpretation of an: Plain X-Ray (chest Chest /Left hip: No acute intrathoracic pathology, no acute fracture.) Radiology Impression Discussion of test interpretation with radiology: I have reviewed the radiologist's reading. Discharge Plan Discharge Clinical Impression: Acute UTI Patient Disposition: Home, Self-Care Instructions: Urinary Tract Infection in Men (ED) Prescriptions: New nitrofurantoin monohyd/m-cryst [Macrobid] 100 mg capsule 100 mg PO Q12H 7 Days Qty: 14 0RF Rx Instructions: must administer with a meal/food No Action sulfamethoxazole-trimethoprim [Bactrim DS] 800-160 mg tablet 1 tab PO BID 5 Days Qty: 10 0RF ascorbic acid (vitamin C) 1,000 mg tablet 1 g PO DAILY 90 Days Qty: 90 1RF finasteride 5 mg tablet 5 mg PO DAILY 90 Days Qty: 90 1RF levofloxacin 500 mg tablet 500 mg PO DAILY 7 Days Qty: 7 0RF terazosin 10 mg capsule 10 mg PO BEDTIME 90 Days Qty: 90 1RF oxybutynin chloride 5 mg tablet 5 mg PO BID PRN (Reason: bladder spasms) Qty: 60 5RF methenamine hippurate 1 gram tablet 1 g PO DAILY 90 Days Qty: 90 1RF Eliquis 5 mg tablet 5 mg PO BID amlodipine 10 mg tablet 10 mg PO DAILY tamsulosin 0.4 mg capsule 0.4 mg PO DAILY sulfamethoxazole-trimethoprim [Bactrim DS] 800-160 mg tablet 1 tab PO .COMPLEX Qty: 30 0RF Rx Instructions: 1 tab orally on days of catheter change; sulfamethoxazole-trimethoprim [Bactrim DS] 800-160 mg tablet 1 tab PO BID 14 Days Qty: 28 0RF
[2023-03-30] MEDS: 0.9 % Sodium Chloride 1,000 ML 999 ML IV (12:29)
[2023-03-30 12:34] LABS: MANUAL DIFF FLAG NO
[2023-03-30 12:35] LABS: Basophils Percent Auto 0.4 % (0-2); Eosinophils Absolute Auto 0.1 X10*3/uL (0.0-0.4); Eosinophils Percent Auto 0.6 % (0-4); Hemoglobin 14.1 g/dl (14.0-18.0); Imm Gran Abs Auto 0.04 X10*3/uL (0.00-0.03); Imm Gran Pct Auto 0.4 % (0.0-0.4); Lymphocytes Absolute Auto 1.6 X10*3/uL (1.2-4.9); Lymphocytes Percent Auto 14.3 % (20-40); Mean Corpuscular HGB Conc 32.8 g/dl (31.0-36.0); Mean Corpuscular Hemoglobin 30.5 pg (27.0-33.0); Mean Corpuscular Volume 93.1 fL (80.0-98.0); Mean Platelet Volume 8.7 fL (9.4-12.4); Monocytes Absolute Auto 0.5 X10*3/uL (0.1-1.2); Monocytes Percent Auto 4.9 % (2-11); Neutrophils Absolute Auto 8.7 x10*3/uL (2.0-8.3); Neutrophils Percent Auto 79.4 % (45-73); Platelet Count 216 X10*3/uL (160-400); Red Blood Count 4.62 X10*6/uL (4.60-5.80); Red Cell Distribution Width 12.4 % (11.0-16.0); White Blood Count 10.9 X10*3/uL (4.8-10.8)
[2023-03-30 12:50] LABS: Alanine Aminotransferase 9 U/L (0-40); Albumin Level 3.9 g/dL (3.5-5.0); Alkaline Phosphatase 83 U/L (39-117); Anion Gap 11 (12-20); Aspartate Amino Transferase 15 U/L (5-37); Bilirubin Direct 0.1 mg/dL (0.0-0.5); Bilirubin Total 0.4 mg/dL (0.0-1.0); Blood Urea Nitrogen 14 mg/dL (9-16); Calcium 9.1 mg/dL (8.4-10.2); Carbon Dioxide 27 mmol/L (22-29); Chloride 110 mmol/L (96-108); Creatinine Clr Calc Pharmacy 74.2; Estimated Glomerular Filt Rate > 60; Glucose Random 122 mg/dL (60-115); Lipase 24 U/L (8-78); Potassium 3.9 mmol/L (3.3-5.1); Sodium 144 mmol/L (135-145)
[2023-03-30 13:13] LABS: Troponin-I High Sensitivity < 2.7 ng/L (<3.5-35.0)
[2023-03-30 14:00] LABS: Appearance Urine Cloudy; Color Urine Yellow; Glucose Urine UA Negative (Negative); Leukocyte Esterase Urine Moderate (2+) (Negative); Nitrite Urine Positive (Negative); PH 6.5 (5.0-9.0); UMIC TRIGGER UACC YES; Urine Blood Large (3+) (Negative); Urine Ketones Negative (Negative); Urine Protein 30 (1+) mg/dL (Neg-Trace)
[2023-03-30 14:03] LABS: Bacteria Urine 2+ (None Seen); Hyaline Casts Urine 0-2 /LPF (0-2); RBC Urine >20 /HPF (0-2); Squamous Epithelial Cell Urine 0-2 /HPF (0-2); UACC Culture Trigger YES; WBC Urine >50 /HPF (0-5)
--- NOTE | 2023-03-30 14:50 | PC.NURSE ---
pt has chronic 16F le catheter. le catheter removed. 16F catheter inserted. pt tolerated procedure well. faint amount of bright red blood observed in catheter during insertion. Dr. Floyd aware.
[2023-03-30 15:20] VITALS: BP 129/68; PULSE 68; RESP 12; TEMP 36.8; O2SAT 95
[2023-03-30] MEDS: Nitrofurantoin Monohyd/M-Cryst 100 MG CAPSULE PO (15:55)
--- NOTE | 2023-03-30 16:35 | MHC.EDTECH ---
Brought patient a warm blanket.
--- NOTE | 2023-03-30 16:51 | PC.NURSE ---
pt cleared for discharge. discharge instructions reviewed with pt. iv removed, pt brought to waiting room via w/c. on her way to pick pt up.
== END 2023-03-30 16:51 | disposition home or self-care (01) ==
PROVIDERS: Emergency Provider Emergency Medicine
DX: N39.0 Urinary tract infection, site not specified (principal); R94.31 Abnormal electrocardiogram [ECG] [EKG]; M25.552 Pain in left hip; R11.2 Nausea with vomiting, unspecified; Z79.899 Other long term (current) drug therapy
CPT/HCPCS: 36415; 71045; 73502; 80048; 80076; 81001; 81003; 83690; 84484; 85025; 87086; 87088; 87186; 93005; 96360; 99284

== ENCOUNTER 2023-04-09 08:18 | Outpatient (AMB) | payer MEDICARE, MEDICAID, SELFPAY ==
--- NOTE | 2023-04-09 08:21 | MHC.OFFVIS ---
Intake Intake Visit Reasons: 6m/cath change Intake Note: Patient is present for Follow Up/[facility] Follow up Urology Med: Finasteride, Methenamine, Oxybutynin, Tamsulosin, Terazosin Antibiotic Allergy: None Blood Thinner: Eliquis Pharmacy: [facility] Pharmacy Current Catheter: 16 fr Placed on March 30 in [facility] Allergies Seasonal Allergies Allergy (Verified 04/09/23 08:33) Itchy Eyes HPI HPI Comments History of Present Illness Details Kush is a pleasant male. He is a patient of Dr. Arriola. He is seen for the following urologic conditions - nephrolithiasis - urinary retention Indwelling catheter Long-term Recommend suprapubic tube placement Nephrolithiasis Prior presentation to hospital with hematuria Imaging - 07/18 CT scan 4 mm left mm at left lower pole Urinary Retention Stroke 2018 Failed prior voiding trial On Eliquis and finasteride with tamsulosin 08/18 cystoscopy - neurogenic bladder with significantly increased compliance PFSH Medical History Arterial ischemic stroke, MCA (middle cerebral artery), right, chronic Chronic anticoagulation DVT of lower extremity, bilateral Hemiparesis affecting left side as late effect of cerebrovascular accident (CVA) Hyperlipidemia Hypertension Nephrolithiasis Recurrent UTI Tonic-clonic seizures Review of Systems Const Denies chills and Denies fever(s) Card Reports no additional complaints and Denies syncope Resp Denies cough GI Denies abdominal pain and Denies heartburn Reports as per HPI and Denies change in libido Neuro Denies syncope Psych Denies change in libido Endo Denies change in libido Physical Exam Const General: cooperative, healthy appearing, comfortable and no acute distress Orientation/consciousness: patient oriented x3 HEENT Face and sinus: Yes normal facial exam Mouth: moist mucous membranes Neck Neck: Yes normal visual inspection, Yes full ROM and Yes trachea midline Chest Chest palpation & inspection: normal inspection of the chest Resp Effort & Inspection: normal respiratory effort, able to speak in complete sentences and no respiratory distress GI Inspection: Yes normal to inspection Back/Spine/Pelvis Cervical Spine: normal cervical lordosis Thoracic/Lumbar Spine: thoracic and lumbar spine normal to inspection Skin General skin exam: no rashes or lesions noted Neuro General: patient oriented x3, gait normal, tone normal and moves all extremities Extrem General: Yes normal to inspection and Yes capillary refill normal Assessment & Plan Assessment & Plan (1) Neurogenic urinary bladder disorder: Code(s): N31.9 - Neuromuscular dysfunction of bladder, unspecified Plan Risks, benefits and alternatives to therapy were discussed. These include but are not limited to infection, bleeding, damage to local organs and tissues, need for further interventions. Anesthetic risks regarding cardiac arrhythmia, blood clots, and potential mortality were discussed. The patient understands the typical recovery time and the outpatient nature of the procedure. After consideration of these risks the patient gives full informed consent and they wish to move ahead with the procedure. Cystoscopy, suprapubic tube placement Patient Instructions: Imaging studies, laboratory and physical exam results were discussed and reviewed in detail. No major barriers to patient understanding were identified. An opportunity to ask questions regarding the treatment plan was provided. All questions were answered. The patient expressed understanding and agreement with the above treatment plan. The patient is aware they should contact our office by phone for worsening of their current condition or the appearance of new urologic symptoms. Compliance is encouraged with any medications and followup testing that is ordered. It is a privilege to participate in the urologic care of your patient. If you have any questions or concerns regarding treatment for the above conditions, or other urologic issues, please do not hesitate to contact me. The office telephone contact is [phone]. This note is constructed using voice recognition software. While every effort has been made to ensure accuracy musical engineer errors may have been included. Yours sincerely, Dr Johnny Luther MD, [facility] - Urology Providers of Expert, Compassionate Care for the Genitourinary System Coding Level of Care Code Est Pt Level 4 (26609) Diagnoses Neurogenic urinary bladder disorder N31.9
== END 2023-04-09 09:02 | disposition home or self-care (01) ==
PROVIDERS: PCP Internal Medicine Geriatric Medicine; Visit Provider Urology
DX: N31.9 Neuromuscular dysfunction of bladder, unspecified (principal)
CPT/HCPCS: 99214

== ENCOUNTER → 2023-04-09 08:18 | Outpatient (BNVA) | payer MEDICARE, MEDICAID, SELFPAY | PROVIDERS: Visit Provider Urology | DX: N31.9 Neuromuscular dysfunction of bladder, unspecified (principal); N20.0 Calculus of kidney; Z86.73 Personal history of transient ischemic attack (TIA), and cerebral infarction without residual deficits; Z79.01 Long term (current) use of anticoagulants; Z79.899 Other long term (current) drug therapy | CPT/HCPCS: 99212 ==

== ENCOUNTER 2023-04-09 15:20 | Outpatient (REF) | payer MEDICARE, MEDICAID, SELFPAY | END 2023-04-09 15:21 | disposition home or self-care (01) | LOC: HO.SH 15:20 | PROVIDERS: Visit Provider Internal Medicine Geriatric Medicine | DX: Z01.118 Encounter for examination of ears and hearing with other abnormal findings (principal); H90.3 Sensorineural hearing loss, bilateral | CPT/HCPCS: 92557; 92567 ==

== ENCOUNTER 2023-04-20 16:57 | Outpatient (REF) | payer MEDICARE, MEDICAID, SELFPAY ==
[2023-04-20 17:56] LABS: Appearance Urine Cloudy; Color Urine Yellow; Glucose Urine UA Negative (Negative); Leukocyte Esterase Urine Large (3+) (Negative); Nitrite Urine Negative (Negative); UMIC TRIGGER UA YES; Urine Blood Large (3+) (Negative); Urine Ketones Negative (Negative); Urine Protein 30 (1+) mg/dL (Neg-Trace)
[2023-04-20 17:59] LABS: Bacteria Urine 4+ (None Seen); RBC Urine >20 /HPF (0-2); Squamous Epithelial Cell Urine 0-2 /HPF (0-2); WBC Urine 21-50 /HPF (0-5)
== END 2023-04-20 16:58 | disposition home or self-care (01) ==
LOC: HO.LAB 16:57
PROVIDERS: PCP Internal Medicine Geriatric Medicine; Visit Provider Urology
DX: N31.9 Neuromuscular dysfunction of bladder, unspecified (principal); R82.90 Unspecified abnormal findings in urine
CPT/HCPCS: 81001; 87086; 87088; 87186

== ENCOUNTER → 2023-04-28 12:42 | Outpatient (BNVA) | payer MEDICARE, MEDICAID, SELFPAY | PROVIDERS: PCP Internal Medicine Geriatric Medicine; Visit Provider Urology | DX: Z46.6 Encounter for fitting and adjustment of urinary device (principal); N31.9 Neuromuscular dysfunction of bladder, unspecified | CPT/HCPCS: 51702 ==

== ENCOUNTER 2023-05-12 14:00 | Outpatient (RCR) | payer MEDICARE, MEDICAID, SELFPAY | END 2023-07-02 14:58 | disposition home or self-care (01) | LOC: HO.PT 14:00 | PROVIDERS: PCP Internal Medicine Geriatric Medicine; Visit Provider Internal Medicine Geriatric Medicine | DX: I61.9 Nontraumatic intracerebral hemorrhage, unspecified (principal); G81.94 Hemiplegia, unspecified affecting left nondominant side; M21.372 Foot drop, left foot; Z99.3 Dependence on wheelchair | CPT/HCPCS: 97110; 97116; 97163; 97530 ==

== ENCOUNTER 2023-05-18 11:31 | Day surgery (SDC) | payer MEDICARE, MEDICAID, SELFPAY ==
[2023-05-14 09:56] VITALS: BMI 27.0
--- NOTE | 2023-05-15 10:40 | P.CONAN_ITS ---
Documented by User: Norma Quezada NP 05/15/23 10:42 HPI - Anesthesia Eval Consult details Narrative: 62yo M for cysto Insertion Suprapubic Tube Eliquis for hx DVT CVA with Left side weakness PMFSH Active Problems Active Problems: All Active Problems (Updated 05/14/23 @ 09:56 by Ignacia Barker RN) Neurogenic urinary bladder disorder (Acute) Hematuria (Acute) Urinary retention (Acute) COVID-19 (Acute) Nephrolithiasis (Acute) Past Medical History Medical History Hemorrhagic cerebrovascular accident (CVA) Recurrent UTI Hyperlipidemia DVT of lower extremity, bilateral Chronic anticoagulation Tonic-clonic seizures Hemiparesis affecting left side as late effect of cerebrovascular accident (CVA) Nephrolithiasis Hypertension Surgical History Surgical History H/O colonoscopy Hx of foot surgery Social History Social History Are you a primary career placement services counselor to a significant other at home: No Do you presently have visiting nurse or other home services: Yes (Home Health Aid) Patient Tobacco Use Status: Former Tobacco user Quit Date: 2017 Tobacco use type: Cigarette Use of substances other than those prescribed or required for medical reasons: No Have you been hit, kicked, punched, or otherwise hurt by someone within the past year? If so, by whom?: No Are you DNR?: No Advance Directives Information Provided: Yes (as above noted-will bring copy of HCP form DOS) Advance Directives on File: No Recently lost weight without trying: No Eating poorly because of decreased appetite: No Nutrition Risks: No Nutritional Risk Poor oral hygiene: No Meds Allergies Allergy/AdvReac Type Severity Reaction Status Date / Time Seasonal Allergies Allergy Itchy Eyes Verified 04/09/23 08:33 Home Medications Medication Instructions Recorded Confirmed Last Taken Type apixaban 5 mg tablet (Eliquis) 5 mg PO BID 07/17/22 05/14/23 Unknown History levetiracetam 500 mg tablet 1,000 mg PO BID 05/14/23 05/14/23 Unknown History methenamine hippurate 1 gram tablet 1 g PO BEDTIME 05/14/23 05/14/23 Unknown History Exam Exam Date and Time: May 15, 2023 1040 Height,Weight and Vital Signs: Height 5 ft 5 in Weight 73.482 kg Pertinent Lab Results Pertinent Lab Results: Laboratory Tests 03/30/23 12:28 WBC 10.9 H Hgb 14.1 Hct 43.0 Plt Count 216 Sodium 144 Potassium 3.9 Chloride 110 H Carbon Dioxide 27 BUN 14 Creatinine 0.89 Narrative Narrative: EKG 03/2023 Vent. Rate : 064 BPM Atrial Rate : 064 BPM P-R Int : 174 ms QRS Dur : 084 ms QT Int : 406 ms P-R-T Axes : 056 019 030 degrees QTc Int : 418 ms Normal sinus rhythm Inferior infarct , age undetermined Abnormal ECG When compared with ECG of 11-JUN-2022 17:23, Nonspecific T wave abnormality is no longer Present Documented by User: Parker Hall MD 05/18/23 12:53 [facility] Past Medical History Medical History Hemorrhagic cerebrovascular accident (CVA) Recurrent UTI Hyperlipidemia DVT of lower extremity, bilateral Chronic anticoagulation Tonic-clonic seizures Hemiparesis affecting left side as late effect of cerebrovascular accident (CVA) Nephrolithiasis Hypertension Family History Family history of problems with anesthesia: No Surgical History Surgical History H/O colonoscopy Hx of foot surgery History of Problems with Anesthesia: No Social History Social History Are you a primary career placement services counselor to a significant other at home: No Do you presently have visiting nurse or other home services: Yes (Home Health Aid) Patient Tobacco Use Status: Former Tobacco user Quit Date: 2017 Tobacco use type: Cigarette Use of substances other than those prescribed or required for medical reasons: No Have you been hit, kicked, punched, or otherwise hurt by someone within the past year? If so, by whom?: No Are you DNR?: No Advance Directives Information Provided: Yes (as above noted-will bring copy of HCP form DOS) Advance Directives on File: No Recently lost weight without trying: No Eating poorly because of decreased appetite: No Nutrition Risks: No Nutritional Risk Poor oral hygiene: No Meds Allergies Allergy/AdvReac Type Severity Reaction Status Date / Time Seasonal Allergies Allergy Itchy Eyes Verified 04/09/23 08:33 Home Medications Medication Instructions Recorded Confirmed Last Taken Type apixaban 5 mg tablet (Eliquis) 5 mg PO BID 07/17/22 05/14/23 Unknown History levetiracetam 500 mg tablet 1,000 mg PO BID 05/14/23 05/14/23 Unknown History methenamine hippurate 1 gram tablet 1 g PO BEDTIME 05/14/23 05/14/23 Unknown History Exam Airway Mallampati Class: II TM Dist: >3cm Neck ROM: Full Partial: Upper Heart: ok Lungs: ok Assessment and Plan Assessment Anesthesia Assessment: Anesthesia Plan Discussed and Chart Reviewed Final Anesthetic Review Family History of Problems with Anesthesia: No History of Problems with Anesthesia: No NPO: Yes ASA Class: IV Final Preanesthetic Review: No Changes in Pt Med Stat, Meds/Allgs Chart Reviewed, Consent Obtained/Reviewed and Anes Risks/Benef Reviewed Patient Risk: High Procedure Risk: Low Anesthetic Plan Anesthetic Plan: MAC: and Agree w/ Assess. and Plan Disposition: Standard PACU
[2023-05-18 12:11] VITALS: BP 163/78; PULSE 69; RESP 18; TEMP 36.8; O2SAT 96
[2023-05-18] MEDS: levoFLOXacin 500 MG TABLET PO (12:25)
[2023-05-18] MEDS: Lactated Ringers 1,000 ML 100 ML IVCONT (12:26)
--- NOTE | 2023-05-18 12:26 | MHC.SHP ---
Pre-Procedural Eval Section A Date of Service: 05/18/23 The patient is an INPATIENT: No Changes since office visit: No Cold of Flu in the past 2 weeks, No New Medical Problems, No Changes in Medication and No Patient answered all questions The History & Physical has been completed within 30 days and I have reviewed it.: No Section B Chief Complaint: Neuromuscular dysfunction of bladder, unspecified Details of Present Illness: prior stroke with stiff bladder due to reduced compliance Relevant Social History: None Present Medications: see Short Stay Collaborative assessment Medical History: Significant History History of Previous Operations: No relevant previous surgery Allergies: Allergies Allergy/AdvReac Type Severity Reaction Status Date / Time Seasonal Allergies Allergy Itchy Eyes Verified 04/09/23 08:33 Review of Systems Sugical H&P ROS: Negative: Constitution, Cardiovascular, Respiratory, Neurological, Psychiatric, Hem-Onc, Allergic/Immunologic, Gastrointestinal, Genitourinary, Musculoskeletal, Integumentary, Endocrine and Eyes/Ears/Nose/Throat Exam Surgical H&P Exam: Normal: HEENT, Normal: Heart, Normal: Lungs, Normal: Extremities, Normal: Abdomen, Normal: Skin and Normal: Neurological Plan Diagnosis/Plan: Unchanged (cystoscopy, suprapubic tube placement) I have reviewed the history and physical and performed a pertinent physical examination on my patient. No changes have occurred unless specified. Time Spent With Patient Time: Total time managing care of this patient today ____ minutes.
--- NOTE | 2023-05-18 13:21 | W.PM.OPN ---
Operative Note Operative Note Date of Service: 05/18/23 Narrative: PreOperative Diagnosis:?neurogenic bladder Post Operative Diagnosis:?neurogenic bladder Procedure:? 1. Cystoscopy 2. Suprapubic tube placement Surgeon: Dr Johnny Luther Anesthesia:?Sedation plus local Indications for procedure: post stroke - low bladder compliance with le catheter and recurrent UTI Procedure: After informed consent was verified the patient was brought to the operating room and placed in a supine position.? Anesthesia was administered per protocol. The patient was placed in a modified dorsal lithotomy position and prepped and draped in a sterile fashion. A safety pause was performed confirming patient identity, procedure and antibiotics. A 22 [place] cystoscope was inserted per urethra. Bladder was examined in its entirety. No abnormalities seen. Air bubble was located at the dome of the bladder. A finder needle was inserted 2 fingerbreaths above the symphysis pubis on the abdomen into the bladder.? The needle was visualized in the bladder via cystoscopy. Local anesthetic was infiltrated subcutaneously around the needle introduction site. A small, 1cm horizontal incision was made.? A trocar introducer was advanced through the abdominal wall into the bladder under visualization. The obturator was removed and a 16 Fr le catheter placed. 7cc was used to inflate the balloon. The external portion of the trocar was removed. Dressing was placed, the bladder was emptied, and a drainage bag was attached. The patient tolerated the procedure and was transferred in stable condition to the recovery area. Suprapubic tube will be changed in 1 month with a follow-up office visit.
[2023-05-18 13:31] VITALS: BP 201/109; PULSE 63; RESP 16; TEMP 36.7; O2SAT 95
[2023-05-18 13:46] VITALS: BP 144/75; PULSE 65; RESP 18; O2SAT 96
[2023-05-18 14:01] VITALS: BP 157/81; PULSE 60; RESP 16; TEMP 36.2; O2SAT 96
== END 2023-05-18 14:22 | disposition home or self-care (01) ==
PROVIDERS: PCP Internal Medicine Geriatric Medicine; Visit Provider Urology
PROC: (CPT 51102; principal; 2023-05-18 13:00)
DX: N31.9 Neuromuscular dysfunction of bladder, unspecified (principal); R31.9 Hematuria, unspecified; R33.9 Retention of urine, unspecified; I10 Essential (primary) hypertension; E78.5 Hyperlipidemia, unspecified; I69.354 Hemiplegia and hemiparesis following cerebral infarction affecting left non-dominant side; G40.409 Other generalized epilepsy and epileptic syndromes, not intractable, without status epilepticus; Z86.718 Personal history of other venous thrombosis and embolism; Z87.440 Personal history of urinary (tract) infections; Z87.891 Personal history of nicotine dependence; Z79.01 Long term (current) use of anticoagulants
CPT/HCPCS: 51102; J3010

== ENCOUNTER → 2023-05-18 11:31 | Outpatient (BNV) | payer MEDICARE, SELFPAY | PROVIDERS: PCP Internal Medicine Geriatric Medicine; Visit Provider Urology | DX: N31.9 Neuromuscular dysfunction of bladder, unspecified (principal) | CPT/HCPCS: 51102 ==

== ENCOUNTER 2023-05-25 21:26 | Emergency (ER) | payer MEDICARE, MEDICAID, SELFPAY ==
--- NOTE | ~2023-05-25 | CT_ITS ---
EXAMINATION: CT ABDOMEN AND PELVIS WITHOUT CONTRAST CLINICAL INFORMATION: COMPARISON: None available. TECHNIQUE: Multidetector volumetric imaging was performed from the superior aspect of the liver through the pubic symphysis. Sagittal and coronal reformatted images were obtained on the technologist's workstation. This CT examination was performed using dose optimization techniques as appropriate, variously including the following: *Automated exposure control *Adjustment of mA and/or kV according to patient size (this includes techniques or standardized protocols for targeted exams where dose is matched to indication/reason for exam; i.e. extremities or head) *Use of iterative reconstruction technique DLP: 493 mGy-cm FINDINGS: LUNG BASES: There is atelectatic change at both lung bases. LIVER, GALLBLADDER, AND BILIARY TREE: The liver is normal in size, shape, and attenuation. No focal hepatic lesion or biliary ductal dilatation is present. The gallbladder is unremarkable with no evidence of radiopaque gallstones, gallbladder wall thickening, or obvious pericholecystic inflammatory changes. PANCREAS: Unremarkable. SPLEEN: Unremarkable. ADRENAL GLANDS: There is a 1.5 cm left adrenal nodule similar to previous. KIDNEYS AND URETERS: The kidneys are normal in size, shape, and attenuation. There is scattered renal calculi measuring up to 5 mm calculus lower pole left kidney. There is bilateral renal cysts measuring up to 6.7 cm upper pole left kidney. There is no hydronephrosis. BLADDER: Mild urinary bladder wall thickening. A suprapubic catheter decompresses the urinary bladder. GASTROINTESTINAL TRACT: The small and large bowel are unremarkable. The appendix is unremarkable. ABDOMINAL WALL: There is an umbilical hernia containing fat. LYMPH NODES: Normal. VASCULAR: Unremarkable. PELVIC VISCERA: Unremarkable. OSSEOUS STRUCTURES: There is mild diffuse thoracolumbar disc degenerative change. CT/CT abdomen pelvis wo IV con IMPRESSION: Bilateral nonobstructing renal calculi. Suprapubic bladder catheter in place with mild urinary bladder wall thickening. Correlation with urinalysis needed. Atelectatic change at the lung bases. Fleischner guidelines were followed.
[2023-05-25 21:54] VITALS: BP 138/72; PULSE 80; O2SAT 97
[2023-05-25 22:05] VITALS: BP 135/70; PULSE 80; RESP 17; TEMP 36.8; O2SAT 97; BMI 27.0
[2023-05-25 22:09] VITALS: BP 131/70; PULSE 74; RESP 15; TEMP 36.2; O2SAT 98
[2023-05-25 23:49] LABS: MANUAL DIFF FLAG NO
[2023-05-25 23:50] LABS: Basophils Percent Auto 0.4 % (0-2); Eosinophils Absolute Auto 0.2 X10*3/uL (0.0-0.4); Eosinophils Percent Auto 1.9 % (0-4); Hematocrit 40.3 % (42.0-52.0); Hemoglobin 13.3 g/dl (14.0-18.0); Imm Gran Abs Auto 0.02 X10*3/uL (0.00-0.03); Imm Gran Pct Auto 0.2 % (0.0-0.4); Lymphocytes Percent Auto 19.8 % (20-40); Mean Corpuscular Hemoglobin 31.1 pg (27.0-33.0); Mean Corpuscular Volume 94.4 fL (80.0-98.0); Mean Platelet Volume 8.8 fL (9.4-12.4); Monocytes Absolute Auto 0.7 X10*3/uL (0.1-1.2); Monocytes Percent Auto 7.1 % (2-11); Neutrophils Absolute Auto 7.2 x10*3/uL (2.0-8.3); Neutrophils Percent Auto 70.6 % (45-73); Platelet Count 219 X10*3/uL (160-400); Red Blood Count 4.27 X10*6/uL (4.60-5.80); Red Cell Distribution Width 12.2 % (11.0-16.0); White Blood Count 10.2 X10*3/uL (4.8-10.8)
[2023-05-25 23:55] LABS: INTERNATIONAL NORM RATIO 1.4 (0.9-1.1); Prothrombin Time 17.2 SEC (11.1-13.3)
[2023-05-26] VITALS (10 sets, daily range): BP systolic 121–152; BP diastolic 65–85; PULSE 66–78; RESP 14–18; TEMP 36.3–36.9; O2SAT 95–98
[2023-05-26 00:10] LABS: Alanine Aminotransferase 8 U/L (0-40); Albumin Level 3.8 g/dL (3.5-5.0); Alkaline Phosphatase 84 U/L (39-117); Anion Gap 16 (12-20); Aspartate Amino Transferase 14 U/L (5-37); Bilirubin Total 0.4 mg/dL (0.0-1.0); Blood Urea Nitrogen 12 mg/dL (9-16); Calcium 9.2 mg/dL (8.4-10.2); Carbon Dioxide 25 mmol/L (22-29); Chloride 108 mmol/L (96-108); Creatinine Clr Calc Pharmacy 82.1; Estimated Glomerular Filt Rate > 60; Glucose Random 117 mg/dL (60-115); Potassium 4.4 mmol/L (3.3-5.1); Sodium 145 mmol/L (135-145); Total Protein 6.7 g/dL (6.5-8.0)
--- NOTE | 2023-05-26 00:21 | PC.NURSE ---
Patient resting comfortably on ED stretcher, alert and oriented, call white within reach. Watching television. No concerns at this time and waiting on lab results.
--- NOTE | 2023-05-26 00:57 | ED_ITS ---
HPI - Male Genitourinary General Chief complaint: Urogenital-Male Stated complaint: blood in catheter Time Seen by Provider: 05/25/23 23:03 Source: patient Mode of arrival: ambulatory Limitations: no limitations History of Present Illness HPI Narrative: Patient is 62 years old with history of hemorrhagic stroke in 2018 with left- sided hemiparesis wheelchair bound tonic clonic seizures hypertension chronic anticoagulation on Eliquis for DVTs in lower extremities, hyperlipidemia, neurogenic bladder status post suprapubic catheter placement on 05/18/2023 noticed deon gross hematuria from the suprapubic pubic catheter site after he went to the bathroom. Patient took his Eliquis earlier today. Denies any significant abdominal pain Related Data Home Medications Medication Instructions Recorded Confirmed apixaban 5 mg tablet (Eliquis) 5 mg PO BID 07/17/22 05/14/23 levetiracetam 500 mg tablet 1,000 mg PO BID 05/14/23 05/14/23 methenamine hippurate 1 gram tablet 1 g PO BEDTIME 05/14/23 05/14/23 Previous Rx's Medication Instructions Recorded ascorbic acid (vitamin C) 1,000 mg 1 g PO DAILY 90 days #90 tabs 12/05/22 tablet finasteride 5 mg tablet 5 mg PO DAILY 90 days #90 tabs 12/05/22 sulfamethoxazole 800 1 tab PO .COMPLEX #30 tabs 12/23/22 mg-trimethoprim 160 mg tablet (Bactrim DS) terazosin 10 mg capsule 10 mg PO BEDTIME 90 days #90 caps 01/15/23 oxybutynin chloride 5 mg tablet 5 mg PO BID PRN bladder spasms #60 02/23/23 tabs Allergies Allergy/AdvReac Type Severity Reaction Status Date / Time Seasonal Allergies Allergy Itchy Eyes Verified 04/09/23 08:33 Review of Systems 2 Review of Systems: Yes all other systems are reviewed and are negative PMFSH Past Medical History Medical History Hemorrhagic cerebrovascular accident (CVA) Recurrent UTI Hyperlipidemia DVT of lower extremity, bilateral Chronic anticoagulation Tonic-clonic seizures Hemiparesis affecting left side as late effect of cerebrovascular accident (CVA) Nephrolithiasis Hypertension Surgical History H/O colonoscopy Hx of foot surgery Social History Social History Are you a primary career development counselor to a significant other at home: No Do you presently have visiting nurse or other home services: Yes (Home Health Aid) Unable to assess alcohol history related to: Unknown Patient Tobacco Use Status: Former Tobacco user Quit Date: 2017 Tobacco use type: Cigarette Smoked in Last 30 Days: No Use of substances other than those prescribed or required for medical reasons: No Advance Directives: No Advance Directives Information Provided: No Physical Exam 2 Vital Signs: Vital Signs: Last Vital Signs Temp 97.9 F 05/26/23 00:38 Pulse 70 05/26/23 00:38 Resp 16 05/26/23 00:38 BP 121/67 05/26/23 00:38 Pulse Ox 96 05/26/23 00:38 O2 Del Method Room Air 05/26/23 00:38 BMI result Body Mass Index 27.0 Appearance: Alert. Oriented X3. No acute distress. Eyes: PERRLA, No Nystagmus ENT: Pharynx normal. Oral Mucosa moist Neck: Normal inspection. Neck supple. CVS: Normal heart rate and rhythm. Pulses normal. Respiratory: No respiratory distress. Equal air entry bilateral, no wheezing/rales/rhonchi Abdomen: Soft and nontender. Bowel sounds are present, no mass palpable, no CVA tenderness suprapubic catheter in place with blood clots Skin: Skin warm and dry. Normal skin color. Normal skin turgor. Extremities: No lower extremity edema. No calf tenderness Neuro: Oriented X 3. Residual left hemiparesis with contractures No sensory deficit.No cerebellar signs , cranial nerves II-XII intact Medical Decision Making Medical Decision Making MDM Narrative: Patient on Eliquis for DVTs status post suprapubic catheter comes here for gross hematuria bladder irrigation was done few clots was drained patient's H&H stable took his Eliquis last night will admit patient for gross hematuria to be evaluated by urologist in a.m. will place Bosch catheter and do bladder irrigation will repeat H&H in a.m. if continued to bleed plan to admit patient signed out to Dr. Contreras pending re-evaluation Patient's CT scan showed Bosch catheter in place with small amount of free air which was injected while doing the irrigation Differential Diagnosis Differential Diagnoses: The differential diagnosis associated with the presentation includes Gross hematuria Consult Healthcare Provider Management of the patient was discussed with: Hospitalist Lab Data MDM Lab Attestation statement: I reviewed the patient's lab results. 05/25/23 23:44 05/25/23 23:44 Labs: Lab Results 05/25/23 Range/Units 23:44 WBC 10.2 (4.8-10.8) X10*3/uL RBC 4.27 L (4.60-5.80) X10*6/uL Hgb 13.3 L (14.0-18.0) g/dl Hct 40.3 L (42.0-52.0) % MCV 94.4 (80.0-98.0) fL MCH 31.1 (27.0-33.0) pg MCHC 33.0 (31.0-36.0) g/dl RDW 12.2 (11.0-16.0) % Plt Count 219 (160-400) X10*3/uL MPV 8.8 L (9.4-12.4) fL Immature Gran % (Auto) 0.2 (0.0-0.4) % Neut % (Auto) 70.6 (45-73) % Lymph % (Auto) 19.8 L (20-40) % [place] % (Auto) 7.1 (2-11) % Eos % (Auto) 1.9 (0-4) % Baso % (Auto) 0.4 (0-2) % Lymph # (Auto) 2.0 (1.2-4.9) X10*3/uL [place] # (Auto) 0.7 (0.1-1.2) X10*3/uL Eos # (Auto) 0.2 (0.0-0.4) X10*3/uL Baso # (Auto) 0.0 (0.0-0.2) X10*3/uL Abs Immat Gran (auto) 0.02 (0.00-0.03) X10*3/uL Absolute Neuts (auto) 7.2 (2.0-8.3) x10*3/uL Absolute Nucleated RBC 0.000 (0.0-0.012) X10*3/uL Nucleated RBC % (auto) 0.0 (0.0-0.2) /100WBC PT 17.2 H (11.1-13.3) SEC INR 1.4 H (0.9-1.1) Sodium 145 (135-145) mmol/L Potassium 4.4 (3.3-5.1) mmol/L Chloride 108 (96-108) mmol/L Carbon Dioxide 25 (22-29) mmol/L Anion Gap 16 (12-20) BUN 12 (9-16) mg/dL Creatinine 0.79 (0.5-1.4) mg/dL Estim Creat Clear Calc 82.1 Estimated GFR > 60 Random Glucose 117 H (60-115) mg/dL Calcium 9.2 (8.4-10.2) mg/dL Total Bilirubin 0.4 (0.0-1.0) mg/dL AST 14 (5-37) U/L ALT 8 (0-40) U/L Alkaline Phosphatase 84 (39-117) U/L Total Protein 6.7 (6.5-8.0) g/dL Albumin 3.8 (3.5-5.0) g/dL Discharge Plan Discharge Clinical Impression: Hematuria Patient Disposition: Admitted As Inpatient Interventions: LWBS Worksheet Last Done: 05/25/23 21:44
[2023-05-26] MEDS: 0.9 % Sodium Chloride 1,000 ML 100 ML IVCONT ×3 (02:08→22:25)
--- NOTE | 2023-05-26 02:43 | PC.NURSE ---
CBI started at 0220am, patient tlerating procedure well. 3 clots collected into le bag. Urine has become clear as opposed to obvious bright red hematuria.
--- NOTE | 2023-05-26 04:58 | PC.NURSE ---
this rn assumed care of pt @ 0300. pt calm and cooperative. this rn and educational technology specialist changed paola pad under patient. pt reported moderate leaking of le catheter. le appears to be draining appropriately at this time. lights dimmed to promote rest pt denies new needs at this time
--- NOTE | 2023-05-26 05:49 | PC.NURSE ---
first bag completed of 3 way catheter. total output from le is 2900ml of red tinted urine. no new clots noted. this rn made dr soler aware of first bag completion. per dr karlene frazier to initiate 2nd bag of 3 way irrigation. pt continues to tolerate irrigation denies pain at this time plan is to consult with dr pinto in am
[2023-05-26 06:13] LABS: Hematocrit 36.8 % (42.0-52.0); Hemoglobin 12.2 g/dl (14.0-18.0); Mean Corpuscular HGB Conc 33.2 g/dl (31.0-36.0); Mean Corpuscular Hemoglobin 30.3 pg (27.0-33.0); Mean Corpuscular Volume 91.5 fL (80.0-98.0); Mean Platelet Volume 8.7 fL (9.4-12.4); Platelet Count 210 X10*3/uL (160-400); Red Blood Count 4.02 X10*6/uL (4.60-5.80); Red Cell Distribution Width 12.1 % (11.0-16.0); White Blood Count 7.9 X10*3/uL (4.8-10.8)
--- NOTE | 2023-05-26 08:19 | PC.NURSE ---
assumed care of this pt at 0700. CBI cycling appropriately. red tinted blood noted in catheter bag. pt denies pain. consult with Dr. Luther ordered.
--- NOTE | 2023-05-26 10:53 | PC.NURSE ---
spoke with pt's daughter (Cristina [phone]) about getting him placed because it is getting harder for her to take care of him by herself. she requested to speak with family independence case manager. ed provider aware.
--- NOTE | 2023-05-26 14:00 | MHC.CM.PN ---
CM spoke to pt's daughter, who is the day care supervisor for pt. Dtr feel that she can not properly care for pt at home, now that he has a catheter. She is not able to shower him, and is concerned about deterioration of health. CM asked what services are in place, 10 hours a day, 5 days a week, which allows a home health aid to be at the home, while dtr is at work, and picking up and dropping off her children to school. We discussed options and dtr is in agreement for us to refer to SNF for LTC at this time. CM explained to dtr that we will refer to local SNF's, but he may have to go to a SNF that is not in the local area due to lack of available beds. Dtr in agreement. CM to continue to assist pt to go to SNF for LTC.
[2023-05-26 16:53] LABS: COVID-19 Test Negative (Negative); IDNOW Serial# BCCEAD1C
--- NOTE | 2023-05-26 16:53 | PHA.MEDREC ---
Pharmacy Consult ? Medication Reconciliation Pharmacy has completed the medication reconciliation. Patient use med box from [facility] pharmacy, utilized claim history for med rec. Idalia JohnsonD
--- NOTE | 2023-05-26 19:38 | MHC.EDTECH ---
PATIENT WAS SET UP FOR DINNER ATE 100 % MEAL ,DRANK 360 ML FLUIDS .
--- NOTE | 2023-05-26 19:43 | PC.NURSE ---
Report given to Rober ARTHUR and pt moved to overflow. CBI stopped at this time.
--- NOTE | 2023-05-26 20:02 | PC.NURSE ---
Assumed care of pt. Pt transfered from ER stretcher to hospital bed with no complications. Clamped CBI removed and plug placed in suprapubic cath, output continuing from le catheter. No acute distress at this time. Pending plan for overnight care from inpt provider.
--- NOTE | 2023-05-26 21:55 | PC.NURSE ---
Pt talen via wheelchair and 2 assist to bathroom for BM.
[2023-05-27] MEDS: Acetaminophen 325 MG TABLET 650 MG PO (02:08)
--- NOTE | 2023-05-27 02:25 | PC.NURSE ---
Assumed care of pt at 2300. PT alert and oriented, resting quietly in hospital bed calm cooperative and in no acute distress. Bosch catheter in place and draining appropriately . PT denies any leaking from site. Suprapubric catheter dressing dry and intact. PT report 3/10 pain. PT medicated as per SEP. Fluids running at 100mls/hr. Safety precautions in place- bed locked in lowest position, call white with in reach. Plan of care ongoing
[2023-05-27 06:34] VITALS: BP 125/62; PULSE 71; RESP 14; O2SAT 96
--- NOTE | 2023-05-27 07:38 | ED_ITS ---
HPI - Male Genitourinary General Chief complaint: Urogenital-Male Stated complaint: blood in catheter Time Seen by Provider: 05/25/23 23:03 Source: patient Mode of arrival: ambulatory Limitations: no limitations Related Data Home Medications Medication Instructions Recorded Confirmed apixaban 5 mg tablet (Eliquis) 5 mg PO BID 07/17/22 05/26/23 levetiracetam 500 mg tablet 1,000 mg PO BID 05/14/23 05/26/23 methenamine hippurate 1 gram tablet 1 g PO BEDTIME 05/14/23 05/26/23 loratadine 10 mg tablet 10 mg PO QAM 05/26/23 05/26/23 Previous Rx's Medication Instructions Recorded ascorbic acid (vitamin C) 1,000 mg 1 g PO DAILY 90 days #90 tabs 12/05/22 tablet finasteride 5 mg tablet 5 mg PO DAILY 90 days #90 tabs 12/05/22 terazosin 10 mg capsule 10 mg PO BEDTIME 90 days #90 caps 01/15/23 oxybutynin chloride 5 mg tablet 5 mg PO BID PRN bladder spasms #60 02/23/23 tabs Allergies Allergy/AdvReac Type Severity Reaction Status Date / Time Seasonal Allergies Allergy Itchy Eyes Verified 04/09/23 08:33 PMFSH Past Medical History Medical History Hemorrhagic cerebrovascular accident (CVA) Recurrent UTI Hyperlipidemia DVT of lower extremity, bilateral Chronic anticoagulation Tonic-clonic seizures Hemiparesis affecting left side as late effect of cerebrovascular accident (CVA) Nephrolithiasis Hypertension Surgical History H/O colonoscopy Hx of foot surgery Social History Social History Are you a primary home care assistant to a significant other at home: No Do you presently have visiting nurse or other home services: Yes (Home Health Aid) Unable to assess alcohol history related to: Unknown Patient Tobacco Use Status: Former Tobacco user Quit Date: 2017 Tobacco use type: Cigarette Smoked in Last 30 Days: No Use of substances other than those prescribed or required for medical reasons: No Advance Directives: No Advance Directives Information Provided: No Physical Exam 2 Vital Signs: Vital Signs: Last Vital Signs Temp 97.8 F 05/28/23 08:49 Pulse 74 05/28/23 08:49 Resp 20 05/28/23 08:49 BP 121/68 05/28/23 08:49 Pulse Ox 98 05/28/23 08:49 O2 Del Method Room Air 05/28/23 08:49 BMI result Body Mass Index 27.0 Course Course Course Narrative: 05/27/23 9147-- Upon reviewing patient's chart, patient here with hematuria from suprapubic catheter and is PT/case management pending SNF for LTC. On review of overnight nursing notes, suprapubic catheter still in place, dry/intact and Bosch catheter in place draining red-tinged urine, continuous bladder irrigation going. Vital signs have remained stable. CT abdomen/pelvis obtained yesterday showing suprapubic bladder catheter in place with mild urinary bladder wall thickening thickening. UA ordered to rule out UTI. On review labs there has been a slight drop in H&H however remains around patient's baseline. Patient is on Eliquis at home s/p CVA and DVT. Will continue all at home medications at this time however will hold Eliquis as patient still has red tinged urine from Bosch catheter. Will continue to monitor patient. Physician observation initiated. 05/28/23 3418-- patient seen and evaluated by PT. Per their recommendation, patient requires continuous 24/7 care or long-term care upon discharge. Patient will continue to be evaluated by Case Management. Vital signs remained stable overnight. Will continue to monitor. Physician observation continued. 05/28/23 8607-- spoke with Ami from case management who tells me that [facility]00 [facility].m.. Medications Administered Generic Name Dose Route Start Last Admin Trade Name Freq PRN Reason Stop Dose Admin Ascorbic Acid 1,000 mg 05/27/23 09:00 05/28/23 08:53 Ascorbic Acid 500 Mg Tablet PO 1,000 mg DAILY KULWANT Administration Doxazosin Mesylate 8 mg 05/27/23 21:00 05/27/23 20:50 Doxazosin Mesylate 2 Mg Tablet PO 8 mg BEDTIME KULWANT Administration Finasteride 5 mg 05/27/23 09:00 05/28/23 08:53 Finasteride 5 Mg Tablet PO 5 mg DAILY KULWANT Administration Levetiracetam 1,000 mg 05/27/23 09:00 05/28/23 08:53 Levetiracetam 1,000 Mg Tablet PO 1,000 mg BID KULWANT Administration Loratadine 10 mg 05/27/23 09:00 05/28/23 08:53 Loratadine 10 Mg Tablet PO 10 mg DAILY KULWANT Administration Methenamine Hippurate 1 gm 05/27/23 21:00 05/27/23 20:50 Methenamine Hippurate 1 Gm Tablet PO 1 gm BEDTIME KULWANT Administration Discontinued Medications Generic Name Dose Route Start Last Admin Trade Name Aidenq PRN Reason Stop Dose Admin Acetaminophen 650 mg 05/27/23 01:58 05/27/23 02:08 Acetaminophen 325 Mg Tablet PO 05/27/23 01:59 650 mg ONCE ONE Administration Sodium Chloride 1,000 mls @ 100 mls/hr 05/26/23 02:00 05/28/23 07:11 Ns IVCONT Infused .Q10H KULWANT Infusion Medical Decision Making Lab Data 05/26/23 05:58 05/25/23 23:44 Labs: Lab Results 05/25/23 05/26/23 05/26/23 Range/Units 23:44 05:58 16:16 WBC 10.2 7.9 (4.8-10.8) X10*3/uL RBC 4.27 L 4.02 L (4.60-5.80) X10*6/uL Hgb 13.3 L 12.2 L (14.0-18.0) g/dl Hct 40.3 L 36.8 L (42.0-52.0) % MCV 94.4 91.5 (80.0-98.0) fL MCH 31.1 30.3 (27.0-33.0) pg MCHC 33.0 33.2 (31.0-36.0) g/dl RDW 12.2 12.1 (11.0-16.0) % Plt Count 219 210 (160-400) X10*3/uL MPV 8.8 L 8.7 L (9.4-12.4) fL Immature Gran % (Auto) 0.2 (0.0-0.4) % Neut % (Auto) 70.6 (45-73) % Lymph % (Auto) 19.8 L (20-40) % Hemphill % (Auto) 7.1 (2-11) % Eos % (Auto) 1.9 (0-4) % Baso % (Auto) 0.4 (0-2) % Lymph # (Auto) 2.0 (1.2-4.9) X10*3/uL Hemphill # (Auto) 0.7 (0.1-1.2) X10*3/uL Eos # (Auto) 0.2 (0.0-0.4) X10*3/uL Baso # (Auto) 0.0 (0.0-0.2) X10*3/uL Abs Immat Gran (auto) 0.02 (0.00-0.03) X10*3/uL Absolute Neuts (auto) 7.2 (2.0-8.3) x10*3/uL Absolute Nucleated RBC 0.000 0.000 (0.0-0.012) X10*3/uL Nucleated RBC % (auto) 0.0 0.0 (0.0-0.2) /100WBC PT 17.2 H (11.1-13.3) SEC INR 1.4 H (0.9-1.1) Sodium 145 (135-145) mmol/L Potassium 4.4 (3.3-5.1) mmol/L Chloride 108 (96-108) mmol/L Carbon Dioxide 25 (22-29) mmol/L Anion Gap 16 (12-20) BUN 12 (9-16) mg/dL Creatinine 0.79 (0.5-1.4) mg/dL Estim Creat Clear Calc 82.1 Estimated GFR > 60 Random Glucose 117 H (60-115) mg/dL Calcium 9.2 (8.4-10.2) mg/dL Total Bilirubin 0.4 (0.0-1.0) mg/dL AST 14 (5-37) U/L ALT 8 (0-40) U/L Alkaline Phosphatase 84 (39-117) U/L Total Protein 6.7 (6.5-8.0) g/dL Albumin 3.8 (3.5-5.0) g/dL Urine Color Urine Appearance Urine pH (5.0-9.0) Ur Specific Anderson (1.005-1.025) Urine Protein (Neg-Trace) mg/dL Urine Glucose (UA) (Negative) mg/dL Urine Ketones (Negative) mg/dL Urine Blood (Negative) Urine Nitrite (Negative) Ur Leukocyte Esterase (Negative) Urine RBC (0-2) /HPF Urine WBC (0-5) /HPF Ur Squamous Epith Cells (0-2) /HPF Urine Bacteria (None Seen) Hyaline Casts (0-2) /LPF COVID-19 (MARY) Negative (Negative) COVID-19 Clin Com See Note 05/27/23 Range/Units 10:13 WBC (4.8-10.8) X10*3/uL RBC (4.60-5.80) X10*6/uL Hgb (14.0-18.0) g/dl Hct (42.0-52.0) % MCV (80.0-98.0) fL MCH (27.0-33.0) pg MCHC (31.0-36.0) g/dl RDW (11.0-16.0) % Plt Count (160-400) X10*3/uL MPV (9.4-12.4) fL Immature Gran % (Auto) (0.0-0.4) % Neut % (Auto) (45-73) % Lymph % (Auto) (20-40) % Hemphill % (Auto) (2-11) % Eos % (Auto) (0-4) % Baso % (Auto) (0-2) % Lymph # (Auto) (1.2-4.9) X10*3/uL Hemphill # (Auto) (0.1-1.2) X10*3/uL Eos # (Auto) (0.0-0.4) X10*3/uL Baso # (Auto) (0.0-0.2) X10*3/uL Abs Immat Gran (auto) (0.00-0.03) X10*3/uL Absolute Neuts (auto) (2.0-8.3) x10*3/uL Absolute Nucleated RBC (0.0-0.012) X10*3/uL Nucleated RBC % (auto) (0.0-0.2) /100WBC PT (11.1-13.3) SEC INR (0.9-1.1) Sodium (135-145) mmol/L Potassium (3.3-5.1) mmol/L Chloride (96-108) mmol/L Carbon Dioxide (22-29) mmol/L Anion Gap (12-20) BUN (9-16) mg/dL Creatinine (0.5-1.4) mg/dL Estim Creat Clear Calc Estimated GFR Random Glucose (60-115) mg/dL Calcium (8.4-10.2) mg/dL Total Bilirubin (0.0-1.0) mg/dL AST (5-37) U/L ALT (0-40) U/L Alkaline Phosphatase (39-117) U/L Total Protein (6.5-8.0) g/dL Albumin (3.5-5.0) g/dL Urine Color Ne[place]u A Urine Appearance Cloudy Urine pH 7.0 (5.0-9.0) Ur Specific Anderson 1.010 (1.005-1.025) Urine Protein 100 (2+) H (Neg-Trace) mg/dL Urine Glucose (UA) Negative (Negative) mg/dL Urine Ketones Negative (Negative) mg/dL Urine Blood Large (3+) H (Negative) Urine Nitrite Negative (Negative) Ur Leukocyte Esterase Small (1+) H (Negative) Urine RBC >20 H (0-2) /HPF Urine WBC 11-20 H (0-5) /HPF Ur Squamous Epith Cells 0-2 (0-2) /HPF Urine Bacteria None Seen (None Seen) Hyaline Casts 0-2 (0-2) /LPF COVID-19 (MARY) (Negative) COVID-19 Clin Com Discharge Plan Discharge Clinical Impression: Hematuria Patient Disposition: Still a Patient Prescriptions: No Action ascorbic acid (vitamin C) 1,000 mg tablet 1 g PO DAILY 90 Days Qty: 90 1RF finasteride 5 mg tablet 5 mg PO DAILY 90 Days Qty: 90 1RF terazosin 10 mg capsule 10 mg PO BEDTIME 90 Days Qty: 90 1RF oxybutynin chloride 5 mg tablet 5 mg PO BID PRN (Reason: bladder spasms) Qty: 60 5RF methenamine hippurate 1 gram tablet 1 g PO BEDTIME levetiracetam 500 mg tablet 1,000 mg PO BID loratadine 10 mg tablet 10 mg PO QAM Eliquis 5 mg tablet 5 mg PO BID Referrals: [facility] [Outside] Interventions: LWBS Worksheet Last Done: 05/25/23 21:44
[2023-05-27] MEDS: 0.9 % Sodium Chloride 1,000 ML 100 ML IVCONT ×2 (08:11→18:02)
--- NOTE | 2023-05-27 08:15 | PC.NURSE ---
PT A/O X 3 WITH SOME CONFUSION AT TIMES, DENIES ANY PAIN/DISC. NS INFUSING AT 100ML/HR. PT ATE 75% OF BREAKFAST. CORONA CATH PATENT AND DRAINING YELLOW URINE. SUPRAPBIC CATH IN PLACE. DRESSING CHANGE DONE. PT AWARE OF PLAN OF CARE.
[2023-05-27 08:24] VITALS: BP 146/83; PULSE 82; RESP 16; TEMP 36.4; O2SAT 94
[2023-05-27] MEDS: Ascorbic Acid 500 MG TABLET 1000 MG PO (08:27)
[2023-05-27] MEDS: Finasteride 5 MG TABLET PO (08:27)
[2023-05-27] MEDS: Loratadine 10 MG TABLET PO (08:27)
[2023-05-27] MEDS: levETIRAcetam 1,000 MG TABLET 1000 MG PO ×2 (09:40→20:50)
--- NOTE | 2023-05-27 10:15 | PC.NURSE ---
PT 'S DAUGHTER ARTURO ([phone]). MONTYTER/PT AWARE OF PLAN OF CARE.
[2023-05-27 10:28] LABS: Appearance Urine Cloudy; Color Urine Orange; Glucose Urine UA Negative (Negative); Leukocyte Esterase Urine Small (1+) (Negative); Nitrite Urine Negative (Negative); UMIC TRIGGER UACC YES; Urine Blood Large (3+) (Negative); Urine Ketones Negative (Negative); Urine Protein 100 (2+) mg/dL (Neg-Trace)
[2023-05-27 10:29] LABS: Bacteria Urine None Seen (None Seen); Hyaline Casts Urine 0-2 /LPF (0-2); RBC Urine >20 /HPF (0-2); Squamous Epithelial Cell Urine 0-2 /HPF (0-2); UACC Culture Trigger YES
[2023-05-27 14:00] VITALS: BP 140/84; PULSE 68; RESP 18; TEMP 36.6; O2SAT 96
--- NOTE | 2023-05-27 14:32 | MHC.CM.ED ---
Patient remains in ER overflow. Copy of HCP obtained from [facility]. [facility] and [facility] are both able to offer beds. Spoke with patient's [email or web address] via telephone at [phone]. Cristina accepts bed at [facility]. PVR made aware. MDS sent to [facility] and [facility]. Continue to monitor for d/c needs.
[2023-05-27] MEDS: Doxazosin Mesylate 2 MG TABLET 8 MG PO (20:50)
[2023-05-27] MEDS: Methenamine Hippurate 1 GM TABLET PO (20:50)
[2023-05-27 22:23] VITALS: BP 122/71; PULSE 73; RESP 20; TEMP 36.7; O2SAT 96
[2023-05-28 03:47] VITALS: BP 143/69; PULSE 61; RESP 16; TEMP 36.5; O2SAT 96
[2023-05-28 08:49] VITALS: BP 121/68; PULSE 74; RESP 20; TEMP 36.6; O2SAT 98
[2023-05-28] MEDS: Ascorbic Acid 500 MG TABLET 1000 MG PO (08:53)
[2023-05-28] MEDS: Loratadine 10 MG TABLET PO (08:53)
[2023-05-28] MEDS: levETIRAcetam 1,000 MG TABLET 1000 MG PO (08:53)
[2023-05-28] MEDS: Finasteride 5 MG TABLET PO (08:53)
--- NOTE | 2023-05-28 12:57 | MHC.CM.ED ---
Patient remains in ER overflow. Can leave for [facility] at 3pm. Renny RON booked. [facility] with chart. Patient, daughter Carmita Evans RN and Nancy REESE aware. Continue to monitor for d/c needs.
[2023-05-28 13:17] VITALS: BP 127/73; PULSE 74; RESP 18; TEMP 36.4; O2SAT 95
== END 2023-05-28 18:06 ==
PROVIDERS: Emergency Medicine; Physician Assistant Medical; Emergency Provider Internal Medicine; PCP Internal Medicine Geriatric Medicine
DX: R31.9 Hematuria, unspecified (principal); R10.2 Pelvic and perineal pain; R26.2 Difficulty in walking, not elsewhere classified; Z11.52 Encounter for screening for COVID-19; Z20.822 Contact with and (suspected) exposure to COVID-19; Z79.899 Other long term (current) drug therapy; Z87.891 Personal history of nicotine dependence; Z79.01 Long term (current) use of anticoagulants
CPT/HCPCS: 36415; 74176; 80053; 81001; 85025; 85027; 85610; 87086; 87088; 87186; 87635; 96360; 96361; 97162; 99285

== ENCOUNTER 2023-06-17 13:34 | Outpatient (AMB) | payer MEDICARE, MEDICAID, SELFPAY ==
--- NOTE | 2023-06-17 14:13 | MHC.OFFVIS ---
Intake Intake Visit Reasons: 1st SPT Change Intake Note: Patient is present for Follow Up/SPT change Urology Medications: Finasteride, Methenamine, Oxybutynin, Tamsulosin, Terazosin Blood Thinner: Apixaban Electronic Field Service Engineer Required: Yes Accompanied by: Daughter Allergies Seasonal Allergies Allergy (Verified 06/21/23 21:32) Itchy Eyes Medication List - Last Reconciled 06/21/23 by SCOTTIE Bright apixaban (Eliquis) 5 mg PO BID bisacodyl (Dulcolax (bisacodyl)) 10 mg HI DAILY PRN finasteride 5 mg PO DAILY 90 days levetiracetam 1,000 mg PO BID loratadine 10 mg PO QAM methenamine hippurate 1 g PO BEDTIME oxybutynin chloride 5 mg PO BID PRN terazosin 10 mg PO BEDTIME 90 days HPI HPI Comments History of Present Illness Details Kush is a pleasant 62-year-old male patient of Dr. Cabrera who was accompanied by his daughter at today's office visit. He has a past medical history of CVA with left-sided hemiparesis, recurrent UTIs, hyperlipidemia, DVT, tonic clonic seizures, nephrolithiasis, hypertension, and neurogenic bladder. He presents to the office today for follow-up of his urinary retention and nephrolithiasis. Of note, patient is status post suprapubic tube placement with Dr. Luther on 05/18. Suprapubic tube was changed from 16 Welsh to 18 Welsh and the patient's indwelling Bosch was removed from his penis. Suprapubic tube site appears well healed with no drainage and or redness noted. Discussed cycling bladder with bladder plugged and emptying catheter every 3-4 hours while awake and utilizing night bag at night. When asked he currently denies any bothersome urinary issues or concerns at this time. Discussed and stressed the importance of drinking plenty of water daily. Nephrolithiasis Prior presentation to hospital with hematuria Imaging - 07/17 CT scan 4 mm left mm at left lower pole Urinary Retention Stroke 2017 Failed prior voiding trial On Eliquis and finasteride with tamsulosin 08/18 cystoscopy - neurogenic bladder with significantly increased compliance [facility] Medical History Hemorrhagic cerebrovascular accident (CVA) Recurrent UTI Hyperlipidemia DVT of lower extremity, bilateral Chronic anticoagulation Tonic-clonic seizures Hemiparesis affecting left side as late effect of cerebrovascular accident (CVA) Nephrolithiasis Hypertension Surgical History H/O colonoscopy Hx of foot surgery Are you a primary care services manager to a significant other at home: No Do you presently have visiting nurse or other home services: Yes (Home Health Aid) Unable to assess alcohol history related to: Unknown Patient Tobacco Use Status: Former Tobacco user Quit Date: 2017 Tobacco use type: Cigarette Review of Systems Const Reports as per HPI Eyes Reports no additional complaints ENT Reports no additional complaints Card Reports as per HPI Resp Reports no additional complaints GI Reports no additional complaints Reports as per HPI Musc Reports as per HPI Neuro Reports as per HPI Psych Reports no additional complaints Endo Reports no additional complaints Bolivar/Lymph Reports as per HPI Aller/Immun Reports no additional complaints Physical Exam Const General: cooperative, comfortable, no acute distress, well developed, alert and awake Orientation/consciousness: patient oriented x3 Limitations: physical limitations (left sided hemiparesis) and other limitations (stretcher ) HEENT Head: Yes normal to inspection, Yes normocephalic and Yes atraumatic Ears: hearing grossly normal bilaterally Eyes General: appearance normal, both eyes and all related structures Neck Neck: Yes normal visual inspection and Yes trachea midline Chest Chest palpation & inspection: normal inspection of the chest Resp Effort & Inspection: normal respiratory effort and able to speak in complete sentences Cardio Rate: regular rate GI Inspection: Yes normal to inspection Male General Exam: Yes normal external exam Penis: normal penis and uncircumcised Meatus: meatus normal Skin General skin exam: no rashes or lesions noted Neuro General: patient oriented x3 Extrem Other: left sided hemiparesis. Psych Appearance: grossly normal and well kempt Mental Status: mental status grossly normal Speech and movement: Clear speech present Affect: normal affect Attitude: cooperative Thought process: Normal thought process present Thought content: Normal thought content present Insight: Fair insight present (Psych) Judgement: Fair judgement present (Psych) Assessment & Plan Assessment & Plan (1) Neurogenic urinary bladder disorder: Code(s): N31.9 - Neuromuscular dysfunction of bladder, unspecified (2) Urinary retention: Code(s): R33.9 - Retention of urine, unspecified (3) Nephrolithiasis: Code(s): N20.0 - Calculus of kidney Plan Suprapubic tube changed to 18 Welsh and indwelling Bosch was removed. Discussed and stressed the importance of drinking plenty of fluid daily. Orders given for suprapubic tube changed every month Catheter plug/cap provided with Education to drain bladder every 3-4 hours while awake and utilize night bag at HS. Continue with finasteride and terazosin as prescribed. Continue methenamine and vitamin-C. Follow-up in 6 months if not sooner with any issues, concerns, and or questions. Patient Instructions: The patient had an opportunity to ask questions regarding the treatment plan. All questions were answered. Physical exam, labs, and imaging were discussed and reviewed in detail. As well as risks, benefits, and discussion of treatment choices. No major barriers to understanding were identified. The patient expressed understanding and agreement with the above treatment plan. The patient was made aware they should contact our office by phone for worsening of their current condition, the appearance of new symptoms, or with any questions or concerns. Compliance is encouraged with any medications and follow up testing that is ordered. It is a privilege to be allowed the opportunity to participate in? your urological care.? Again, if you have any questions or concerns If you have any questions or concerns please do not hesitate to contact me. The office is [phone]. This note is constructed using voice recognition software. While every effort has been made to ensure accuracy research and development tester errors may have been included. Yours sincerely, SCOTTIE Bright Coding Level of Care Code Est Pt Level 3 (28563) Diagnoses Neurogenic urinary bladder disorder N31.9 Urinary retention R33.9 Nephrolithiasis N20.0
== END 2023-06-17 14:38 | disposition home or self-care (01) ==
PROVIDERS: PCP Internal Medicine Geriatric Medicine; Visit Provider Nurse Practitioner Family
DX: N31.9 Neuromuscular dysfunction of bladder, unspecified (principal); R33.9 Retention of urine, unspecified; N20.0 Calculus of kidney
CPT/HCPCS: 99213

== ENCOUNTER → 2023-06-17 13:34 | Outpatient (BNVA) | payer MEDICARE, MEDICAID, SELFPAY | PROVIDERS: PCP Internal Medicine Geriatric Medicine; Visit Provider Nurse Practitioner Family | DX: N39.0 Urinary tract infection, site not specified (principal); N20.0 Calculus of kidney; N31.9 Neuromuscular dysfunction of bladder, unspecified; R33.9 Retention of urine, unspecified | CPT/HCPCS: 99212 ==

== ENCOUNTER 2023-11-17 16:03 | Emergency (ER) | payer MEDICARE, MEDICAID, SELFPAY ==
--- NOTE | 2023-11-17 16:14 | ED_ITS ---
HPI - Male Genitourinary General Chief complaint: Urogenital-Male Stated complaint: catheter issue, bleeding from site, on thinners Time Seen by Provider: 11/17/23 16:10 Source: patient Mode of arrival: EMS Limitations: no limitations History of Present Illness HPI Narrative: 63 year old male with a past medical history neurogenic bladder with chronic suprapubic catheter presents to the emergency department, via ems, for concerns for bleeding around the catheter. EMS states that he is on anticoagulants and had increased bleeding from the catheter prompting the concern. He states that his suprapubic catheter accidentally was ?tugging? which caused bleeding. He reports he the catheter has been draining urine without issue. He denies any abdominal pain, nausea, vomiting, fever, chills. Pertinent positives and negatives discussed in HPI Related Data Home Medications ?Medication ?Instructions ?Recorded ?Confirmed apixaban 5 mg tablet (Eliquis) 5 mg PO BID 07/17/22 05/26/23 levetiracetam 500 mg tablet 1,000 mg PO BID 05/14/23 05/26/23 methenamine hippurate 1 gram tablet 1 g PO BEDTIME 05/14/23 05/26/23 loratadine 10 mg tablet 10 mg PO QAM 05/26/23 05/26/23 bisacodyl 10 mg rectal suppository 10 mg VT DAILY PRN 06/17/23 (Dulcolax (bisacodyl)) Previous Rx's ?Medication ?Instructions ?Recorded oxybutynin chloride 5 mg tablet 5 mg PO BID PRN bladder spasms #60 02/23/23 tabs finasteride 5 mg tablet 5 mg PO DAILY 90 days #90 tabs 06/17/23 terazosin 10 mg capsule 10 mg PO BEDTIME 90 days #90 caps 07/16/23 ascorbic acid (vitamin C) 1,000 mg 1 g PO DAILY 90 days #90 tabs 08/13/23 tablet methenamine hippurate 1 gram tablet 1 g PO DAILY 90 days #90 tabs 08/13/23 Allergies Allergy/AdvReac Type Severity Reaction Status Date / Time Seasonal Allergies Allergy Itchy Eyes Verified 11/17/23 16:23 Review of Systems Review of Systems: Yes all other systems are reviewed and are negative PMFSH Past Medical History Medical History Hemorrhagic cerebrovascular accident (CVA) Recurrent UTI Hyperlipidemia DVT of lower extremity, bilateral Chronic anticoagulation Tonic-clonic seizures Hemiparesis affecting left side as late effect of cerebrovascular accident (CVA) Nephrolithiasis Hypertension Surgical History H/O colonoscopy Hx of foot surgery Social History Social History Are you a primary direct care counselor to a significant other at home: No Do you presently have visiting nurse or other home services: Yes (Home Health Aid) Unable to assess alcohol history related to: Unknown Patient Tobacco Use Status: Former Tobacco user Quit Date: 2017 Tobacco use type: Cigarette Advance Directives: No Advance Directives Information Provided: No Do you have a plan to hurt others: No Plan Physical Exam Vital Signs: Vital Signs: Last Vital Signs Temp 98.5 F 11/17/23 16:20 Pulse 70 11/17/23 16:20 Resp 16 11/17/23 16:20 BP 116/68 11/17/23 16:20 Pulse Ox 94 11/17/23 16:20 O2 Del Method Room Air 11/17/23 16:20 BMI result Body Mass Index 23.7 Nursing notes and vital signs reviewed. GENERAL APPEARANCE: A&0 x 4, generally well appearing, no acute distress HENMT: Normal to inspection, atraumatic, face symmetrical. Normal external ears, nose, and oropharynx clear. EYE: PERRLA, EOM intact, structures appear normal NECK: Supple without lymphadenopathy. No stiffness or restricted ROM. CHEST: Normal to inspection HEART: Normal rate and regular rhythm, normal S1/S2, no M/R/G LUNGS: LS CTA, moving air well. Able to speak in complete sentences. No crackles, wheezes, or rhonchi auscultated ABDOMEN: Soft, nontender, nondistended. Normal bowel sounds noted. Suprapubic catheter in place with dried blood around the insertion site BACK: No CVAT, no obvious deformity EXTREMITIES: Moving all extremities without difficulty. No cyanosis, clubbing, or edema. Normal capillary refill. NEUROLOGICAL: Alert and oriented, moving all 4 extremities with equal strength. CN not formally tested but appearing grossly intact. Observed to ambulate with normal gait. Cognition normal SKIN: Warm and dry without any lesions, rash, or visible sores PSYCH: Cooperative, normal affect, normal thought process Medical Decision Making Medical Decision Making MDM Narrative: Old records reviewed for previous imaging, lab studies, ECGs, and notes. Patient was assessed the emergency department with no acute distress or toxicity noted. No active bleeding noted around catheter site and suprapubic catheter appears to be draining without issue. Patient educated to keep area clean and dry to prevent infection. Patient is safe for discharge at this time with plan for [id number] Tylenol for fever/discomfort with dosing as per packaging. HPI, PE, diagnostics, and plan discussed with patient and family with no unanswered questions at this time. Strict return precautions given to return to the emergency department with new, worsening, or concerning emergent symptoms. Recommended to follow-up with there primary care provider in 24-48 hours for further treatment and management. Differential Diagnosis Differential Diagnoses: The differential diagnosis associated with the presentation includes But not limited to catheter dislodgement, intra-abdominal infection, UTI, traumatic catheter insertion, bleeding Independent Historian Clinical information obtained from an independent historian. History obtained from or confirmed by: EMS Discharge Plan Discharge Clinical Impression: Bosch catheter problem Patient Disposition: Home, Self-Care Prescriptions: No Action oxybutynin chloride 5 mg tablet 5 mg PO BID PRN (Reason: bladder spasms) Qty: 60 5RF finasteride 5 mg tablet 5 mg PO DAILY 90 Days Qty: 90 1RF terazosin 10 mg capsule 10 mg PO BEDTIME 90 Days Qty: 90 1RF ascorbic acid (vitamin C) 1,000 mg tablet 1 g PO DAILY 90 Days Qty: 90 1RF methenamine hippurate 1 gram tablet 1 g PO DAILY 90 Days Qty: 90 1RF methenamine hippurate 1 gram tablet 1 g PO BEDTIME levetiracetam 500 mg tablet 1,000 mg PO BID loratadine 10 mg tablet 10 mg PO QAM Eliquis 5 mg tablet 5 mg PO BID bisacodyl [Dulcolax (bisacodyl)] 10 mg suppository 10 mg VT DAILY PRN Referrals: [facility] Family Medicine [Provider Group] [facility] Primary Care[facility] [Provider Group] [facility] Primary CareRamy [Provider Group] Print Language: Citizen [place]
[2023-11-17 16:20] VITALS: BP 116/68; BP 124/68; PULSE 70; PULSE 84; RESP 16; TEMP 36.9; O2SAT 94; O2SAT 98; BMI 23.7
[2023-11-17 18:08] VITALS: BP 128/69; PULSE 64; RESP 16; TEMP 36.9; O2SAT 97
[2023-11-17 18:26] VITALS: BP 128/69; PULSE 64; RESP 16; TEMP 36.9; O2SAT 97
== END 2023-11-17 18:33 | disposition home or self-care (01) ==
PROVIDERS: Emergency Provider Emergency Medicine Emergency Medical Services; PCP Internal Medicine Geriatric Medicine
DX: T83.098A Other mechanical complication of other urinary catheter, initial encounter (principal); Y73.8 Miscellaneous gastroenterology and urology devices associated with adverse incidents, not elsewhere classified; Y92.009 Unspecified place in unspecified non-institutional (private) residence as the place of occurrence of the external cause; I10 Essential (primary) hypertension; E78.5 Hyperlipidemia, unspecified; N31.9 Neuromuscular dysfunction of bladder, unspecified; Z87.440 Personal history of urinary (tract) infections; Z86.718 Personal history of other venous thrombosis and embolism; Z79.01 Long term (current) use of anticoagulants
CPT/HCPCS: 99283

== ENCOUNTER 2023-12-16 10:09 | Outpatient (AMB) | payer MEDICARE, MEDICAID, SELFPAY ==
--- NOTE | 2023-12-16 10:17 | A.OFFVIS_ITS ---
Intake Visit Reasons: 6m follow up Intake Note: Patient is present for Follow Up/SPT Urology Medications: Finasteride, Methenamine, Oxybutynin, Tamsulosin, Terazosin Blood Thinner: Apixaban Economic Analyst Required: Yes Economic Analyst Name: THERESA BURNHAMYOON Accompanied by: Self / Same As Patient Allergies Seasonal Allergies Allergy (Verified 12/16/23 10:50) Itchy Eyes Medication List - Last Reconciled 12/16/23 by CHEMA Bright- apixaban (Eliquis) 5 mg PO BID ascorbic acid (vitamin C) 1 g PO DAILY 90 days bisacodyl (Dulcolax (bisacodyl)) 10 mg [place] DAILY PRN finasteride 5 mg PO DAILY 90 days levetiracetam 1,000 mg PO BID levetiracetam 1,000 mg PO BID loratadine 10 mg PO QAM methenamine hippurate 1 g PO BEDTIME methenamine hippurate 1 g PO DAILY 90 days oxybutynin chloride 5 mg PO BID PRN terazosin 10 mg PO BEDTIME 90 days HPI Comments Details: Kush is a pleasant 63-year-old Liberian speaking male patient of Dr. Cabrera. He has a past medical history of CVA with left-sided hemiparesis, recurrent UTIs, hyperlipidemia, DVT, tonic clonic seizures, nephrolithiasis, hypertension, and neurogenic bladder. He presents to the office today for follow-up of his urinary retention and nephrolithiasis. Of note, patient is status post suprapubic tube placement with Dr. Luther on 05/18. Suprapubic tube site appears well healed with no redness, drainage, and or foul odor. SPT draining clear yellow urine. He currently denies any bothersome urinary issues or concerns. Discussed cycling bladder with bladder plugged and emptying every 3-4 hours while awake and utilizing night bag at night. Nursing into provide Education. When asked he reports compliance with finasteride, terazosin, methenamine, and vitamin-C as prescribed. He reports currently undergoing rehab at [facility] and rehab urine [place]. Nephrolithiasis Prior presentation to hospital with hematuria Imaging - 07/17 CT scan 4 mm left mm at left lower pole Urinary Retention Stroke 2018 Failed prior voiding trial On Eliquis and finasteride with tamsulosin 08/18 cystoscopy - neurogenic bladder with significantly increased compliance PFSH Medical History Hemorrhagic cerebrovascular accident (CVA) Recurrent UTI Hyperlipidemia DVT of lower extremity, bilateral Chronic anticoagulation Tonic-clonic seizures Hemiparesis affecting left side as late effect of cerebrovascular accident (CVA) Nephrolithiasis Hypertension Surgical History H/O colonoscopy Hx of foot surgery Social History Are you a primary career development coordinator to a significant other at home: No Do you presently have visiting nurse or other home services: Yes (Home Health Aid) Unable to assess alcohol history related to: Unknown Patient Tobacco Use Status: Former Tobacco user Quit Date: 2017 Tobacco use type: Cigarette Review of Systems Const Reports as per HPI Eyes Reports no additional complaints ENT Reports no additional complaints Card Reports as per HPI Resp Reports no additional complaints GI Reports no additional complaints Reports as per HPI Musc Reports no additional complaints Neuro Reports as per HPI Psych Reports no additional complaints Endo Reports no additional complaints [place]/Lymph Reports as per HPI Aller/Immun Reports no additional complaints Physical Exam Const General: cooperative, healthy appearing, comfortable, no acute distress, well developed, alert and awake Orientation/consciousness: patient oriented x3 Limitations: physical limitations (left sided hemiparesis) and wheelchair HEENT Head: Yes normal to inspection, Yes normocephalic and Yes atraumatic Ears: hearing grossly normal bilaterally Eyes General: appearance normal, both eyes and all related structures Neck Neck: Yes normal visual inspection and Yes trachea midline Chest Chest palpation & inspection: normal inspection of the chest Resp Effort & Inspection: normal respiratory effort and able to speak in complete sentences Cardio Rate: regular rate GI Inspection: Yes normal to inspection Male General Exam: Yes normal external exam Penis: normal penis and uncircumcised Meatus: meatus normal Skin General skin exam: no rashes or lesions noted Neuro General: patient oriented x3 Extrem Other: left sided hemiparesis. Psych Appearance: grossly normal and well kempt Mental Status: mental status grossly normal Speech and movement: Clear speech present Affect: normal affect Attitude: cooperative Thought process: Normal thought process present Thought content: Normal thought content present Insight: Fair insight present (Psych) Judgement: Fair judgement present (Psych) Assessment & Plan Assessment & Plan (1) Neurogenic urinary bladder disorder: Code(s): N31.9 - Neuromuscular dysfunction of bladder, unspecified Category: Medical (2) Nephrolithiasis: Code(s): N20.0 - Calculus of kidney Category: Medical Plan Suprapubic tube site appears well healed with no reddness, open areas, or foul odor. Discussed, educated, and stressed the importance of drinking water daily. Continue with suprapubic tube changes monthly. Will obtain renal ultrasound in 6 months for longstanding history of nephrolithiasis. Continue methenamine, vitamin-C, finasteride, and terazosin as prescribed. Patient currently denies any bothersome urinary issues. Follow-up in 6 months with imaging to be completed prior; or sooner with any issues, concerns, and or questions. Orders: Orders US renal BI 6 Months N20.0 - Calculus of kidney Medications: Discontinued methenamine hippurate Discontinued Reason: Duplicate 1 g PO BEDTIME Patient Instructions: The patient had an opportunity to ask questions regarding the treatment plan. All questions were answered. Physical exam, labs, and imaging were discussed and reviewed in detail. As well as risks, benefits, and discussion of treatment choices. No major barriers to understanding were identified. The patient expressed understanding and agreement with the above treatment plan. The patient was made aware they should contact our office by phone for worsening of their current condition, the appearance of new symptoms, or with any questions or concerns. Compliance is encouraged with any medications and follow up testing that is ordered. It is a privilege to be allowed the opportunity to participate in? your urological care.? Again, if you have any questions or concerns If you have any questions or concerns please do not hesitate to contact me. The office is [phone]. This note is constructed using voice recognition software. While every effort has been made to ensure accuracy industrial safety and health specialist errors may have been included. Yours sincerely, SCOTTIE Bright Coding Level of Care Code Est Pt Level 3 (52090) Diagnoses Neurogenic urinary bladder disorder N31.9 Nephrolithiasis N20.0
== END 2023-12-16 10:55 | disposition home or self-care (01) ==
LOC: HO.HUSH 10:09
PROVIDERS: PCP Internal Medicine Geriatric Medicine; Visit Provider Nurse Practitioner Family
DX: N31.9 Neuromuscular dysfunction of bladder, unspecified (principal); N20.0 Calculus of kidney
CPT/HCPCS: 99213

== ENCOUNTER → 2023-12-16 10:09 | Outpatient (BNVA) | payer MEDICARE, MEDICAID, SELFPAY | PROVIDERS: PCP Internal Medicine Geriatric Medicine; Visit Provider Nurse Practitioner Family | DX: N20.0 Calculus of kidney (principal); N31.9 Neuromuscular dysfunction of bladder, unspecified | CPT/HCPCS: 99212 ==

== ENCOUNTER 2024-06-06 14:37 | Outpatient (REF) | payer MEDICARE, MEDICAID, SELFPAY | END 2024-06-06 14:38 | disposition home or self-care (01) | LOC: HO.US 14:37 | PROVIDERS: PCP Internal Medicine Geriatric Medicine; Visit Provider Nurse Practitioner Family | DX: N20.0 Calculus of kidney (principal) | CPT/HCPCS: 76775 ==

== ENCOUNTER 2024-08-04 11:34 | Outpatient (AMB) | payer MEDICARE, MEDICAID, SELFPAY ==
--- NOTE | 2024-08-04 11:53 | A.OFFVIS_ITS ---
Intake Visit Reasons: 6m/US(set) Intake Note: Patient is present for Follow Up/SPT Urology Medications: Finasteride, Methenamine, Oxybutynin, Tamsulosin, Terazosin Blood Thinner: Apixaban Break Up Worker Required: Yes Accompanied by: Self / Same As Patient Allergies Seasonal Allergies Allergy (Verified 08/04/24 12:09) Itchy Eyes Medication List - Last Reconciled 08/04/24 by SCOTTIE Bright apixaban (Eliquis) 5 mg PO BID ascorbic acid (vitamin C) 1 g PO DAILY 90 days bisacodyl (Dulcolax (bisacodyl)) 10 mg [place] DAILY PRN finasteride 5 mg PO DAILY 90 days levetiracetam 1,000 mg PO BID loratadine 10 mg PO QAM methenamine hippurate 1 g PO DAILY 90 days oxybutynin chloride 5 mg PO BID PRN terazosin 10 mg PO BEDTIME 90 days HPI Comments Details: Kush is a pleasant 63-year-old Macedonian speaking male patient of Dr. Cabrera who was accompanied by his daughter at today's office visit. He has a past medical history of CVA with left-sided hemiparesis, recurrent UTIs, hyperlipidemia, DVT, tonic clonic seizures, nephrolithiasis, hypertension, and neurogenic bladder. He presents to the office today for follow-up of his urinary retention and nephrolithiasis. Of note, patient is status post suprapubic tube placement with Dr. Luther on 05/18. Suprapubic tube site appears well healed with no redness, drainage, and or foul odor. In discussion with the patient and his daughter today he denies having had any bothersome urinary issues or concerns since his last office visit here. He reports compliance with methenamine, vitamin-C, finasteride, and terazosin as prescribed. He reports having suprapubic tube catheter changes at facility without any issues. He utilizes catheter cap throughout the day and night bag at night and feels this has been working. Recent unofficial renal ultrasound results reviewed with the patient today. Bilateral renal cysts. Bilateral kidneys with no hydronephrosis. 3 mm nonobstructing left renal calculi. He denies having had any urinary tract infections and or UTI like symptoms since his last office visit here. He otherwise offers no other issues or concerns at this time. PREVIOUS OFFICE NOTE: Nephrolithiasis Prior presentation to hospital with hematuria Imaging - 07/17 CT scan 4 mm left mm at left lower pole Urinary Retention Stroke 2017 Failed prior voiding trial 08/18 cystoscopy - neurogenic bladder with significantly increased compliance [facility] Medical History Hemorrhagic cerebrovascular accident (CVA) Recurrent UTI Hyperlipidemia DVT of lower extremity, bilateral Chronic anticoagulation Tonic-clonic seizures Hemiparesis affecting left side as late effect of cerebrovascular accident (CVA) Nephrolithiasis Hypertension Surgical History H/O colonoscopy Hx of foot surgery Social History Are you a primary specialist wound care to a significant other at home: No Do you presently have visiting nurse or other home services: Yes (Home Health Aid) Unable to assess alcohol history related to: Unknown Patient Tobacco Use Status: Former Tobacco user Tobacco use type: Cigarette Review of Systems Const Reports as per HPI Eyes Reports no additional complaints ENT Reports no additional complaints Card Reports as per HPI Resp Reports no additional complaints GI Reports no additional complaints Reports as per HPI Musc Reports no additional complaints Neuro Reports as per HPI Psych Reports no additional complaints Endo Reports no additional complaints [place]/Lymph Reports as per HPI Aller/Immun Reports no additional complaints Physical Exam Const General: cooperative, healthy appearing, comfortable, no acute distress, well developed, alert and awake Orientation/consciousness: patient oriented x3 Limitations: physical limitations (left sided hemiparesis) and other limitations (stretcher ) HEENT Head: Yes normal to inspection, Yes normocephalic and Yes atraumatic Ears: hearing grossly normal bilaterally Eyes General: appearance normal, both eyes and all related structures Neck Neck: Yes normal visual inspection and Yes trachea midline Chest Chest palpation & inspection: normal inspection of the chest Resp Effort & Inspection: normal respiratory effort and able to speak in complete sentences Cardio Rate: regular rate GI Inspection: Yes normal to inspection Male General Exam: Yes normal external exam Penis: normal penis and uncircumcised Meatus: meatus normal Skin General skin exam: no rashes or lesions noted Neuro General: patient oriented x3 Extrem Other: left sided hemiparesis. Psych Appearance: grossly normal and well kempt Mental Status: mental status grossly normal Speech and movement: Clear speech present Affect: normal affect Attitude: cooperative Thought process: Normal thought process present Thought content: Normal thought content present Insight: Fair insight present (Psych) Judgement: Fair judgement present (Psych) Assessment & Plan Assessment & Plan (1) Neurogenic urinary bladder disorder: Code(s): N31.9 - Neuromuscular dysfunction of bladder, unspecified Category: Medical (2) Nephrolithiasis: Code(s): N20.0 - Calculus of kidney Category: Medical Plan Suprapubic tube site appears well healed with no reddness, open areas, or foul odor. Discussed, educated, and stressed the importance of drinking water daily. Continue with suprapubic tube changes monthly. Patient currently denies any bothersome urinary issues or concerns. Recent unofficial renal ultrasound results reviewed with the patient today; as noted above Continue methenamine, vitamin-C, finasteride, and terazosin as prescribed. Patient currently denies any bothersome urinary issues. Follow-up in 6 months with PSA to be completed prior; or sooner with any issues, concerns, and or questions. Orders: Orders Prostate Specific Antigen 6 Months N31.9 - Neuromuscular dysfunction of bladder, unspecified, R31.9 - Hematuria, unspecified, R33.9 - Retention of urine, unspecified Patient Instructions: The patient had an opportunity to ask questions regarding the treatment plan. All questions were answered. Physical exam, labs, and imaging were discussed and reviewed in detail. As well as risks, benefits, and discussion of treatment choices. No major barriers to understanding were identified. The patient expressed understanding and agreement with the above treatment plan. The patient was made aware they should contact our office by phone for worsening of their current condition, the appearance of new symptoms, or with any questions or concerns. Compliance is encouraged with any medications and follow up testing that is ordered. It is a privilege to be allowed the opportunity to participate in? your urological care.? Again, if you have any questions or concerns If you have any questions or concerns please do not hesitate to contact me. The office is [phone]. This note is constructed using voice recognition software. While every effort has been made to ensure accuracy harvest worker field crop errors may have been included. Yours sincerely, SCOTTIE Bright Coding Level of Care Code Est Pt Level 3 (62208) Complex EM visit Add On G2211 Diagnoses Neurogenic urinary bladder disorder N31.9 Nephrolithiasis N20.0
== END 2024-08-04 12:11 | disposition home or self-care (01) ==
LOC: HO.HUSH 11:34
PROVIDERS: PCP Internal Medicine Geriatric Medicine; Visit Provider Nurse Practitioner Family
DX: N31.9 Neuromuscular dysfunction of bladder, unspecified (principal); N20.0 Calculus of kidney
CPT/HCPCS: 99213; G2211

== ENCOUNTER → 2024-08-04 11:34 | Outpatient (BNVA) | payer MEDICARE, MEDICAID, SELFPAY | PROVIDERS: PCP Internal Medicine Geriatric Medicine; Visit Provider Nurse Practitioner Family | DX: N31.9 Neuromuscular dysfunction of bladder, unspecified (principal); N20.0 Calculus of kidney | CPT/HCPCS: 99212 ==

== ENCOUNTER 2024-08-19 17:21 | Emergency (ER) | payer MEDICARE, MEDICAID, SELFPAY ==
[2024-08-19 17:31] VITALS: BP 140/80; PULSE 64; O2SAT 97
[2024-08-19 17:40] VITALS: BP 106/67; PULSE 72; RESP 18; TEMP 36.8; O2SAT 98; BMI 22.5
--- NOTE | 2024-08-19 17:44 | ED.GENADULT ---
HPI - General Adult General Chief complaint: General Medical Stated complaint: from snf, Catheter broken Time Seen by Provider: 08/19/24 17:44 Source: patient Mode of arrival: ambulatory Limitations: no limitations History of Present Illness ED Provider: TAY SAMPSON PA-C HPI narrative: 63-year-old Guatemalan-speaking male with pmhx significant for neurogenic urinary bladder disorder s/p suprapubic catheter placement in 04/2023 presents to the ED today from SNF for catheter evaluation. Patient reports wet sensation around the stoma of his catheter early today. Staff has evaluated the catheter and noted a crack towards the distal end, prompting them to send him to the ED for further evaluation. Patient's daughter is at bedside. States the staff should be changing the catheter every 4 weeks however she does not know if this is actually happening. Patient does not recall the last time his suprapubic catheter was changed. States it has been draining a clear yellow fluid. Denies any deon blood. Admits to some discomfort around the stoma only with catheter changes. Denies flank pain. Denies fever/ chills. Related Data Home Medications ?Medication ?Instructions ?Recorded ?Confirmed apixaban 5 mg tablet (Eliquis) 5 mg PO BID 07/17/22 05/26/23 levetiracetam 500 mg tablet 1,000 mg PO BID 05/14/23 05/26/23 loratadine 10 mg tablet 10 mg PO QAM 05/26/23 05/26/23 bisacodyl 10 mg rectal suppository 10 mg [place] DAILY PRN 06/17/23 (Dulcolax (bisacodyl)) Previous Rx's ?Medication ?Instructions ?Recorded oxybutynin chloride 5 mg tablet 5 mg PO BID PRN bladder spasms #60 02/23/23 tabs finasteride 5 mg tablet 5 mg PO DAILY 90 days #90 tabs 06/17/23 terazosin 10 mg capsule 10 mg PO BEDTIME 90 days #90 caps 07/16/23 ascorbic acid (vitamin C) 1,000 mg 1 g PO DAILY 90 days #90 tabs 08/13/23 tablet methenamine hippurate 1 gram tablet 1 g PO DAILY 90 days #90 tabs 08/13/23 levofloxacin 750 mg tablet 750 mg PO DAILY 4 days #4 tabs 08/19/24 Allergies Allergy/AdvReac Type Severity Reaction Status Date / Time Seasonal Allergies Allergy Itchy Eyes Verified 08/19/24 17:42 Review of Systems Review of Systems: Yes all other systems are reviewed and are negative [facility] Past Medical History Attestation statement: The following information was validated with the patient. Source: old records reviewed Medical History Hemorrhagic cerebrovascular accident (CVA) Recurrent UTI Hyperlipidemia DVT of lower extremity, bilateral Chronic anticoagulation Tonic-clonic seizures Hemiparesis affecting left side as late effect of cerebrovascular accident (CVA) Nephrolithiasis Hypertension Surgical History H/O colonoscopy Hx of foot surgery Social History Social History Are you a primary summer child caregiver to a significant other at home: No Do you presently have visiting nurse or other home services: Yes (Home Health Aid) Unable to assess alcohol history related to: Unknown Patient Tobacco Use Status: Former Tobacco user Tobacco use type: Cigarette Smoked in Last 30 Days: No Use of substances other than those prescribed or required for medical reasons: No Advance Directives: No Advance Directives Information Provided: No Do you have a plan to hurt others: No Plan Physical Exam ED Vital Signs: Vital Signs - 24 hr 08/19/24 17:40 08/19/24 18:00 08/19/24 19:29 Temperature 98.2 F 98.2 F 98.1 F Pulse Rate 72 72 58 Respiratory Rate 18 18 18 Blood Pressure 106/67 106/67 147/80 H Pulse Oximetry 98 98 98 Oxygen Delivery Method Room Air Room Air Room Air 08/19/24 20:50 Temperature 97.7 F Pulse Rate 63 Respiratory Rate 16 Blood Pressure 152/79 H Pulse Oximetry 97 Oxygen Delivery Method Room Air BMI result Body Mass Index 22.5 vital signs stable, afebrile General: Well appearing, in no acute distress. Skin: Warm, dry, intact. No rashes or lesions. Head: Normocephalic, atraumatic. EENT: Hearing is intact b/l. Conjunctiva clear. PERRLA. EOM intact. Moist mucous membranes.? Neck: Supple without LAD Cardiac: Chest wall symmetric. RRR. Lungs: Normal respiratory effort without accessory muscle use Abdomen: Soft, non-tender, non-distended. No rebound tenderness or guarding. Positive BS x4. Suprapubic catheter in place. No surrounding erythema. No noted discharge at stoma or bleeding. Draining dark-colored urine. no blood. no CVAT b/l. Back: No midline spinous or paraspinal tenderness. No step off deformity. Ext: Upper and lower extremities atraumatic, without tenderness, deformity, swelling or erythema Neuro: AOx3. Normal speech. Ambulating with steady gait. Psych: Appropriate mood and affect. Responds appropriately to questions. Course Course Course Narrative: Suprapubic catheter changed. See procedure note. Both Tigre YBARRA and my attending, Dr. Hurst at bedside to assist. Urine flowing through le cath, slightly blood tinged likely secondary to traumatic catheter insertion. now draining straw colored urine. Urinalysis sent which shows large amount of blood and RBCs likely secondary to traumatic catheterization insertion. Positive for infection. On review of previous urine cultures, urine has grown Proteus mirabilis, streptococcal epidermis, Enterococcus faecalis and Klebsiella pneumoniae all sensitive to levofloxacin. Will discharge patient on levofloxacin for UTI. first dose given in ED. Patient has remained stable throughout ED visit today. Discussed worrisome signs and symptoms and when to return to the ED. All questions answered at this time. Patient is agreeable with disposition and stable for discharge. Medications Administered Discontinued Medications Generic Name Dose Route Start Last Admin Trade Name Freq PRN Reason Stop Dose Admin Levofloxacin 750 mg 08/19/24 20:09 08/19/24 20:48 Levofloxacin 750 Mg Tablet PO 08/19/24 20:10 750 mg ONCE ONE Administration Procedures Catheter Insertion (Urinary) Date of insertion: 08/19/24 Time of insertion: 19:00 Reason for placing: Yes Reason for placing indwelling catheter: Other (replacement of chronic suprapubic catheter) Bladder scan/ultrasound used before catheterization: No Antiseptic solution prep: Povidone-Iodine Topical anesthesia used: No Catheter type/location: Suprapubic Size ([place]): 16 Catheter balloon size (mL): 10 Catheter balloon amount: 10 Results: successfully catheterized-immediate flow Procedure performed: with complications Complications: minimal bleeding from stoma Medical Decision Making Medical Decision Making MDM Narrative: 63-year-old Guatemalan-speaking male with pmhx significant for neurogenic urinary bladder disorder s/p suprapubic catheter placement in 04/2023 presents to the ED today from SNF for catheter evaluation. Vital signs stable. Afebrile. He is nontoxic-appearing and in no acute distress. On exam, abdomen is soft, non-tender, non-distended. No rebound tenderness or guarding. Positive BS x4. Suprapubic catheter in place. No surrounding erythema. No noted discharge at stoma or bleeding. Draining dark-colored urine. no blood. no CVAT b/l. Differential diagnosis includes catheter dislodgement/ malfunction, UTI, traumatic catheter insertion Plan for UA, suprapubic catheter change, re-evalaution. Differential Diagnosis Differential Diagnoses: The differential diagnosis associated with the presentation includes as above. Admission/Observation not indicated. Lab Data MDM Lab Attestation statement: I reviewed the patient's lab results. as above. Labs: Lab Results 08/19/24 Range/Units 19:45 Urine Color Yellow Urine Appearance Turbid Urine pH 6.0 (5.0-9.0) Ur Specific [place] 1.020 (1.005-1.025) Urine Protein 100 (2+) H (Neg-Trace) mg/dL Urine Glucose (UA) Negative (Negative) mg/dL Urine Ketones Trace (Negative) mg/dL Urine Blood Large (3+) H (Negative) Urine Nitrite Positive H (Negative) Ur Leukocyte Esterase Large (3+) H (Negative) Urine RBC >20 H (0-2) /HPF Urine WBC >50 H (0-5) /HPF Ur Squamous Epith Cells 0-2 (0-2) /HPF Ur Transition Epith Cell Present Ur Renal Epithelial Cell Present Urine Bacteria 4+ (None Seen) Hyaline Casts 3-5 (0-2) /LPF Independent Historian Clinical information obtained from an independent historian. History obtained from or confirmed by: Other (daughter) External Record Review External record reviewed: Inpatient record Prescription Management I considered prescription management with: Antibiotic (Levofloxacin) Chronic Conditions Patient?s care impacted by: Other (Chronic suprapubic catheter) Social Determinants Patient?s care significantly limited by Social Determinants of Health including: Other Social Determinant of Health Critical Care Time Critical Care Time Critical Care Time: No Discharge Plan Discharge Clinical Impression: Chronic suprapubic catheter, Urinary tract infection Patient Disposition: [facility] Transfer Details: [facility] Instructions: Urinary Tract Infection in Men (ED), Urinary Tract Infection in Older Adults (ED) Additional Instructions: You were evaluated in the ED today to evaluate your suprapubic catheter. Your catheter was changed and is draining urine. Your urine was sent to the lab and is positive for infection. You were given your first dose of antibiotics (levofloxacin) in ED today. Take your next dose tomorrow. Take this to completion and do not skip any doses. Please make sure you are keeping the area around your catheter site clean and dry. Follow up with your urologist as needed. Return with any new or worsening symptoms. In the case of an emergency call 911. Prescriptions: New levofloxacin 750 mg tablet 750 mg PO DAILY 4 Days Qty: 4 0RF No Action oxybutynin chloride 5 mg tablet 5 mg PO BID PRN (Reason: bladder spasms) Qty: 60 5RF finasteride 5 mg tablet 5 mg PO DAILY 90 Days Qty: 90 1RF terazosin 10 mg capsule 10 mg PO BEDTIME 90 Days Qty: 90 1RF ascorbic acid (vitamin C) 1,000 mg tablet 1 g PO DAILY 90 Days Qty: 90 1RF methenamine hippurate 1 gram tablet 1 g PO DAILY 90 Days Qty: 90 1RF levetiracetam 500 mg tablet 1,000 mg PO BID loratadine 10 mg tablet 10 mg PO QAM Eliquis 5 mg tablet 5 mg PO BID bisacodyl [Dulcolax (bisacodyl)] 10 mg suppository 10 mg [place] DAILY PRN Referrals: [facility] [Provider Group] - 1 week Interventions: ED Discharge Assessment Last Done: 08/19/24 20:50 Print Language: Guatemalan
--- OUTSIDE RECORDS SUMMARY | 2024-08-19 17:58 | XMS_ITS | Encounter Summary ---
Author Organization [employer] Address [address] [place] [address] Care Team Providers Care Conservator Artifacts Name Role Phone Name, Regan TOLEDO Primary Care Provider Encounter Details Date Type Department Care Team ([facility] st Contact Info) Description 05/26/2023 Abstract [facility] MED[facility]INE [address] [place] [address] Name, MD Regan [address] [place] [address] Social History Tobacco Use Types Packs/Day Years Used Date Smoking Tobacco: Never Smokeless Tobacco: Never Alcohol Use Standard Drinks/Week Comments Not Currently 0 (1 standard drink = 0.6 oz pur e alcohol) Depression Answer Date Recorded Patient Health Questionnaire-9 Score 0 11/04/2022 Housing Stability Answer Date Recorded What is your housing situation today? I have housing today, but I am worried about losing housing in the future 05/13/[address] you li ve. Do you have problems with any of the following? None of the above 05/13/2023 Food Insecurity Answer Date Recorded Within the past 12 months, y ou worried that your food would run out before you got money to buy more: Never True 05/13/2023 Within the past 12 months,th e food you bought just didn't last and you didn't have enough money to get more: Never True Transportation Answer Date Recorded In the past 12 months, has l ack of transportation kept you from medical appts, meetings, work or from getting things needed for daily living? No 05/13/2023 Utilities Answer Date Recorded In the past 12 months, has t he electric, gas, oil or water company threatened to shut off services in your home? No 05/13/2023 Depression Answer Date Recorded Patient Health Questionnaire-2 Score 0 11/04/2022 Sex and Gender Information Value Date Recorded Sex Assigned at Male 05/26/2022 10:40 AM EDT Legal Sex Male 10:40 AM EDT Gender Identity Male 05/26/2022 10:40 AM EDT Sexual Orientation Straight 05/26/2022 10 :40 AM EDT documented as of this encounter Plan of Treatment Not on file documented as of this encounter Goals Goal Patient Goal Type Associated Problems Recent Progress Patient-Stated? Author Come to the pharmacy on 02/18/23 to receive the second dose of Shingrix. General No Niranjan Ochoa, PharmD Continue taking your medications as directed General Niranjan Raza, PharmD documented as of this encounter Visit Diagnoses Not on filedocumented in this encounter Additional Health Concerns Assessment Noted Time PHQ-9 Depression Total Score: 0 11/05/19 2:43 PM EDT documented as of this encounter Care Teams Conservator Artifacts Relationship Specialty Start Date End Date Name, MD Regan [address] [place] [address] PCP - General Family Medicine 05/07/22 documented as of this encounter
--- OUTSIDE RECORDS SUMMARY | 2024-08-19 17:58 | XMS_ITS | Encounter Summary ---
Author Organization [employer] [facility] Address [address] [place] [address] [address] [place] [address] Care Team Providers Care Retail Coverage Merchandiser Name Role Phone Name, Regan TOLEDO Primary Care Provider Encounter Details Date Type Department Care Team (Late st Contact Info) Description 01/28/2023 Abstract [facility] MEDICINE [address] [place] [address] Name, MD Regan [address] [place] [address] Social History Tobacco Use Types Packs/Day Years Used Date Smoking Tobacco: Never Smokeless Tobacco: Never Alcohol Use Standard Drinks/Week Comments Not Currently 0 (1 standard drink = 0.6 oz pur e alcohol) Depression Answer Date Recorded Patient Health Questionnaire-9 Score 0 11/04/2022 Depression Answer Date Recorded Patient Health Questionnaire-2 Score 0 11/04/2022 Sex and Gender Information Value Date Recorded Sex Assigned at Male 05/26/2022 10:40 AM EDT Legal Sex Male 10:40 AM EDT Gender Identity Male 05/26/2022 10:40 AM EDT Sexual Orientation Straight 05/26/2022 10 :40 AM EDT COVID-19 Exposure Response Date Recorded In the last 10 days, have yo u been in contact with someone who was confirmed or suspected to have Coronavirus/COVID-19? Unable to assess 01/13/2023 12:09 PM EDT documented as of this encounter Plan of Treatment Not on file documented as of this encounter Goals Goal Patient Goal Type Associated Problems Recent Progress Patient-Stated? Author Come to the pharmacy on 02/18/23 to receive the second dose of Shingrix. General No Niranjan Ochoa, PharmD Continue taking your medications as directed General No Niranjan Ochoa PharmD documented as of this encounter Visit Diagnoses Not on filedocumented in this encounter Additional Health Concerns Assessment Noted Time PHQ-9 Depression Total Score: 0 11/05/19 23 2:43 PM EDT documented as of this encounter Care Teams Retail Coverage Merchandiser Relationship Specialty Start Date End Date Name, MD Regan [address] [place] [address] PCP - General Family Medicine 05/07/22 documented as of this encounter
--- OUTSIDE RECORDS SUMMARY | 2024-08-19 17:58 | XMS_ITS | Encounter Summary ---
Author Organization [employer] Address [address] [place] [address] Care Team Providers Care Printing Sales Representative Name Role Phone Name, Regan TOLEDO Primary Care Provider [phone] Encounter Details Date Type Department Care Team ([facility] st Contact Info) Description 06/06/2024 Orders Only [facility] External Provider, [facility] Social History Tobacco Use Types Packs/Day Years [...] Ochoa PharmD documented as of this encounter Procedures Procedure Name Priority Date/Time Associated Diagnosis Comments US RENAL BI Routine 06/06/2024 2:57 PM EST documented in this encounter Results * US RENAL BI (06/06/2024 2:57 PM EST) Anatomical Region Laterality Modality Abdomen Ultrasound 06/06/2024 2:57 PM EST Narrative 08/05/2024 7:59 AM EST ? [facility] ?[address] ?[place] [address] ? Ultrasound Report ? Signed ? Patient: Kush Wise ?MR#: [id number] ? : 1960 ?Acct:[id number] ? Age/Sex: 63 / M ?ADM Date: 06/06/24 ? Loc: HO.US ? Attending Dr: Jocelyn RUBIN ? Ordering Physician: Jocelyn Deleon ?? Date of Service: 06/06/24 ?? Procedure(s): US renal BI ?? Accession Number(s): [id number] ? cc: Jocelyn Deleon; NameRegan MD ? EXAMINATION: ?? US RETROPERITONEAL LIMITED (RENAL ONLY) ? CLINICAL INFORMATION: ?? Calculus of kidney. ? COMPARISON: ?? CT 05/25/2023, ultrasound 07/23/2022 ? TECHNIQUE: ?? Ultrasound along with color Doppler imaging and spectral analysis was ?? performed of the kidneys. ? FINDINGS: ? RIGHT KIDNEY: 10.1 x 5.6 x 5.6 cm (SAG x AP x TRV). The kidney is ?? normal in size, contour, and echogenicity. Renal cortical thickness is ?? normal. No calculi. Some vascular calcifications are noted.. No ?? hydronephrosis. 2 benign Bosniak class I renal cysts are noted, the ?? largest measuring 2.4 cm, ??which require no additional imaging or ?? follow-up. No solid renal masses are seen. ? LEFT KIDNEY: 15.1 x 5.9 x 4.9 cm (SAG x AP x TRV). The kidney is normal ?? in size, contour, and echogenicity. Renal cortical thickness is normal. ?? There is a 4 mm echogenic focus in the mid to lower kidney with twinkle ?? artifact consistent with a nonobstructing calculus. There is no ?? hydronephrosis. 3 benign Bosniak class I renal cysts are noted, the ?? largest in the mid to upper pole measuring 6.8, ??which require no ?? additional imaging or follow-up. No solid renal masses are seen. ? US/US renal BI ?? IMPRESSION: ?? 1. ??Nonobstructing 4 mm left renal calculus. ?? 2. ??Bilateral benign Bosniak class I renal cysts which require no ?? additional imaging or follow-up. ? Electronically signed by: ??Pancho Leiva MD ??08/05/2024 07:56 AM EST ?? RP ? Dictated By: ?Pancho Leiva MD ? Signed By: ?<Electronically signed by Pancho Leiva MD in OV> ? 08/05/24 0756 ? DD/ 1457 ? TD/TT: 06/06/24 1506 ? Appliance Adjuster: SS ? Procedure Note Gerardo, Image - 08/05/[address] [address] Ultrasound Report Signed Patient: Chantel Wise#: [id number] : 9Acct:[id number] Age/Sex: 63 / MADM Date: 06/06/24 Loc: HO.US Attending Dr: Jocelyn Deleon SAW OFFBEARER-BC Ordering Physician: Jocelyn Deleon Date of Service: 06/06/24 Procedure(s): US renal BI Accession Number(s): [id number] cc: Jocelyn Deleon; Name,Regan TOLEDO EXAMINATION: US RETROPERITONEAL LIMITED (RENAL ONLY) CLINICAL INFORMATION: Calculus of kidney. COMPARISON: CT 05/25/2023, ultrasound 07/23/2022 TECHNIQUE: Ultrasound along with color Doppler imaging and spectral analysis was performed of the kidneys. FINDINGS: RIGHT KIDNEY: 10.1 x 5.6 x 5.6 cm (SAG x AP x TRV). The kidney is normal in size, contour, and echogenicity. Renal cortical thickness is normal. No calculi. Some vascular calcifications are noted.. No hydronephrosis. 2 benign Bosniak class I renal cysts are noted, the largest measuring 2.4 cm, which require no additional imaging or follow-up. No solid renal masses are seen. LEFT KIDNEY: 15.1 x 5.9 x 4.9 cm (SAG x AP x TRV). The kidney is normal in size, contour, and echogenicity. Renal cortical thickness is normal. There is a 4 mm echogenic focus in the mid to lower kidney with twinkle artifact consistent with a nonobstructing calculus. There is no hydronephrosis. 3 benign Bosniak class I renal cysts are noted, the largest in the mid to upper pole measuring 6.8, which require no additional imaging or follow-up. No solid renal masses are seen. US/US renal BI IMPRESSION: 1. Nonobstructing 4 mm left renal calculus. 2. Bilateral benign Bosniak class I renal cysts which require no additional imaging or follow-up. Electronically signed by: Pancho Leiva MD 08/05/2024 07:56 AM EST Dictated By: Pancho Leiva MD Signed By: <Electronically signed by Pancho Leiva MD in OV> 08/05/24 0756 DD/ 1457 TD/TT: 06/06/24 1506 Appliance Adjuster: JENNYFER [facility] External Provider IMG US PROCEDURES Final Result documented in this encounter Visit Diagnoses Not on filedocumented in this encounter Additional Health Concerns Assessment Noted Time PHQ-9 Depression Total Score: 0 11/05/19 23 2:43 PM EDT documented as of this encounter Care Teams Printing Sales Representative Relationship Specialty Start Date End Date Name, MD Regan [address] [place] [address] PCP - General Family Medicine 05/07/22 documented as of this encounter
[2024-08-19 18:00] VITALS: BP 106/67; PULSE 72; RESP 18; TEMP 36.8; O2SAT 98
[2024-08-19 19:29] VITALS: BP 147/80; PULSE 58; RESP 18; TEMP 36.7; O2SAT 98
[2024-08-19 19:54] LABS: Appearance Urine Turbid; Color Urine Yellow; Glucose Urine UA Negative (Negative); Leukocyte Esterase Urine Large (3+) (Negative); Nitrite Urine Positive (Negative); UMIC TRIGGER UACC YES; Urine Blood Large (3+) (Negative); Urine Ketones Trace mg/dL (Negative); Urine Protein 100 (2+) mg/dL (Neg-Trace)
[2024-08-19 20:42] LABS: Bacteria Urine 4+ (None Seen); RBC Urine >20 /HPF (0-2); Renal Epithelial Cells Urine Present; Squamous Epithelial Cell Urine 0-2 /HPF (0-2); Transitional Epi Cells Urine Present; UACC Culture Trigger YES; WBC Urine >50 /HPF (0-5)
[2024-08-19] MEDS: levoFLOXacin 750 MG TABLET PO (20:48)
[2024-08-19 20:50] VITALS: BP 152/79; PULSE 63; RESP 16; TEMP 36.5; O2SAT 97
== END 2024-08-19 22:38 | disposition skilled nursing facility (03) ==
PROVIDERS: Physician Assistant Medical; Emergency Provider Emergency Medicine Emergency Medical Services
DX: N39.0 Urinary tract infection, site not specified (principal); R10.2 Pelvic and perineal pain; Z79.899 Other long term (current) drug therapy; Z87.891 Personal history of nicotine dependence
CPT/HCPCS: 51702; 81001; 87086; 99283; 99284

== ENCOUNTER 2025-02-01 11:20 | Outpatient (AMB) | payer MEDICARE, MEDICAID, SELFPAY ==
--- NOTE | 2025-02-01 11:56 | A.OFFVIS_ITS ---
Intake Visit Reasons: 6m/PSA Intake Note: Patient presents today for follow up on: Neurogenic Bladder, SP Tube, R etention, and PSA lab results PSA: 1.49 Urology Medications: Finasteride, Methenamine, Oxybutynin, Terazosin, vitamin C Blood Thinner: Apixaban Piece Cutter Required: No Accompanied by: Unknown Allergies Seasonal Allergies Allergy (Verified 02/01/25 12:55) Itchy Eyes Medication List - Last Reconciled 02/01/25 by CHEMA Bright- apixaban (Eliquis) 5 mg PO BID ascorbic acid (vitamin C) 1 g PO DAILY 90 days bisacodyl (Dulcolax (bisacodyl)) 10 mg SD DAILY PRN ceftriaxone in dextrose,iso-os 1 gram/50 mL IV docusate sodium (Colace) 100 mg PO BID finasteride 5 mg PO DAILY 90 days levetiracetam 1,000 mg PO BID loratadine 10 mg PO QAM methenamine hippurate 1 g PO DAILY 90 days oxybutynin chloride 5 mg PO BID PRN terazosin 10 mg PO BEDTIME 90 days HPI Comments Details: Kush is a pleasant 64-year-old Wallisian speaking male patient of Dr. Cabrera who was accompanied by his daughter at today's office visit. He has a past medical history of CVA with left-sided hemiparesis, recurrent UTIs, hyperlipidemia, DVT, tonic clonic seizures, nephrolithiasis, hypertension, and neurogenic bladder. He presents to the office today for follow-up of his urinary retention, neurogenic bladder and nephrolithiasis. In discussion with the patient today he reports to be doing and feeling well. He denies having had any bothersome urinary issues or concerns since his last office visit approximately 6 months ago. Patient's daughter reports recently upon suprapubic tube cath change patient was noted to have cloudy urine and therefore was sent for urinalysis and culture and he has since been treated for a urinary tract infection. Suprapubic tube site appears well healed with no redness, drainage, and or foul odor. Drainage bag draining yellow urine with mild sediment. He reports compliance with methenamine, vitamin-C, finasteride, and terazosin as prescribed. He reports having suprapubic tube catheter changes at facility without any issues. He utilizes catheter cap throughout the day and night bag at night and feels this has been working. Previous workup has included a renal ultrasound 06/19 noting nonobstructing 4 mm left renal calculus. Bilateral benign Bosniak class 1 renal cysts which require no additional imaging or follow-up per radiology report. Recent PSA results reviewed with the patient and his daughter today 02/17 1.5. He otherwise offers no other issues or concerns at this time. PREVIOUS OFFICE NOTE: Nephrolithiasis Prior presentation to hospital with hematuria Imaging - 07/17 CT scan 4 mm left mm at left lower pole Urinary Retention Stroke 2017 Failed prior voiding trial 08/18 cystoscopy - neurogenic bladder with significantly increased compliance [facility] Medical History Hemorrhagic cerebrovascular accident (CVA) Recurrent UTI Hyperlipidemia DVT of lower extremity, bilateral Chronic anticoagulation Tonic-clonic seizures Hemiparesis affecting left side as late effect of cerebrovascular accident (CVA) Nephrolithiasis Hypertension Surgical History H/O colonoscopy Hx of foot surgery Social History Are you a primary career representative to a significant other at home: No Do you presently have visiting nurse or other home services: Yes (Home Health Aid) Unable to assess alcohol history related to: Unknown Patient Tobacco Use Status: Former Tobacco user Tobacco use type: Cigarette Review of Systems Const Reports as per HPI Eyes Reports no additional complaints ENT Reports no additional complaints Card Reports as per HPI Resp Reports no additional complaints GI Reports no additional complaints Reports as per HPI Musc Reports no additional complaints Neuro Reports as per HPI Psych Reports no additional complaints Endo Reports no additional complaints [place]/Lymph Reports as per HPI Aller/Immun Reports no additional complaints Physical Exam Const General: cooperative, healthy appearing, comfortable, no acute distress, well developed, alert and awake Orientation/consciousness: patient oriented x3 Limitations: physical limitations (left sided hemiparesis) and wheelchair HEENT Head: Yes normal to inspection, Yes normocephalic and Yes atraumatic Ears: hearing grossly normal bilaterally Eyes General: appearance normal, both eyes and all related structures Neck Neck: Yes normal visual inspection and Yes trachea midline Chest Chest palpation & inspection: normal inspection of the chest Resp Effort & Inspection: normal respiratory effort and able to speak in complete sentences Cardio Rate: regular rate GI Inspection: Yes normal to inspection Male General Exam: Yes normal external exam Penis: normal penis and uncircumcised Meatus: meatus normal Skin General skin exam: no rashes or lesions noted Neuro General: patient oriented x3 Extrem Other: left sided hemiparesis. Psych Appearance: grossly normal and well kempt Mental Status: mental status grossly normal Speech and movement: Clear speech present Affect: normal affect Attitude: cooperative Thought process: Normal thought process present Thought content: Normal thought content present Insight: Fair insight present (Psych) Judgement: Fair judgement present (Psych) Assessment & Plan Assessment & Plan (1) Neurogenic urinary bladder disorder: Code(s): N31.9 - Neuromuscular dysfunction of bladder, unspecified Category: Medical (2) Nephrolithiasis: Code(s): N20.0 - Calculus of kidney Category: Medical Plan Suprapubic tube site appears well healed with no reddness, open areas, or foul odor. Recent PSA results reviewed with the patient today; as noted above Discussed, educated, and stressed the importance of drinking water daily. Continue with suprapubic tube changes monthly as prescribed. Patient currently denies any bothersome urinary issues or concerns. Continue methenamine, vitamin-C, finasteride, and terazosin as prescribed. Patient currently denies any bothersome urinary issues. Follow-up in 6 months; or sooner with any issues, concerns, and or questions. Patient Instructions: The patient had an opportunity to ask questions regarding the treatment plan. All questions were answered. Physical exam, labs, and imaging were discussed and reviewed in detail. As well as risks, benefits, and discussion of treatment choices. No major barriers to understanding were identified. The patient expressed understanding and agreement with the above treatment plan. The patient was made aware they should contact our office by phone for worsening of their current condition, the appearance of new symptoms, or with any questions or concerns. Compliance is encouraged with any medications and follow up testing that is ordered. It is a privilege to be allowed the opportunity to participate in? your urological care.? Again, if you have any questions or concerns If you have any questions or concerns please do not hesitate to contact me. The office is [phone]. This note is constructed using voice recognition software. While every effort has been made to ensure accuracy website designer errors may have been included. Yours sincerely, SCOTTIE Bright Coding Level of Care Code Est Pt Level 3 (14240) Complex EM visit Add On G2211 Diagnoses Neurogenic urinary bladder disorder N31.9 Nephrolithiasis N20.0
--- OUTSIDE RECORDS SUMMARY | 2025-02-01 12:31 | XMS_ITS | Clinical Summary ---
Author Organization [employer] Address [address] [place] [address] Care Team Providers Care Game Preserve Manager Name Role Phone Name, Regan TOLEDO Primary Care Provider Allergies No known active allergies Medications diphenhydrAMINE- acetaminophen (Tylenol PM Extra Strength) 25-500 MG per tablet Take 2 tablets by mouth at bed time. Active levETIRAcetam (Keppra) 500 MG tablet Take 2 tablets by mouth every 12 (twelve) hours. Active Ascorbic Acid (vitamin C) 500 MG tablet Take 1,000 mg by mouth at bedtime. 3 Active finasteride (Proscar) 5 MG tablet Take 5 mg by mouth in the morning. 3 Active methenamine hippurate (Hiprex) 1 g tablet Take 1 g by mouth at bedtime. 3 Active terazosin (Hytrin) 10 MG capsule Take 10 mg by mouth at bedtime. 3 Active oxybutynin (Ditropan) 5 MG tablet TAKE 1 TABLET BY MOUTH TWICE DAILY NEEDED FOR BLADDER SPASMS 3 Active SUMAtriptan (Imitrex) 50 MG tablet TAKE 1 TABLET BY MOUTH AT ONSET OF MIGRAINE. MAY REPEAT ONCE AFTER 2 HOURS IF NEEDED 3 Active docusate sodium (Colace) 100 MG capsule TAKE 1 CAPSULE BY MOUTH TWICE DAILY 60 capsule 4 3 Active Eliquis 5 MG tabletIndication s:Chronic deep vein thrombosis (DVT) of proximal vein of lower extremity, unspecified laterality (CMS/HCC) TAKE 1 TABLET BY MOUTH TWICE DAILY IN THE MORNING AND AT BEDTIME 60 tablet 3 3 Active loratadine (Claritin) 10 MG tablet TAKE 1 TABLET BY MOUTH EVERY MORNING 90 tablet 1 3 Active acetaminophen (Tylenol) 500 MG tablet Take 1 tablet (500 mg) by mouth every 6 (six) hours if needed for mild pain for up to 20 doses. 20 tablet 5 Active acetaminophen (Tylenol) 500 MG tablet Take 1 tablet (500 mg) by mouth every 6 (six) hours if needed for mild pain for up to 20 doses. 20 tablet 5 Active amoxicillin (Amoxil) 500 MG capsule Take 1 capsule (500 mg) by mouth every 8 (eight) hours for 7 days. 21 capsule 5 01/27/20 25 Active Problems Problem Noted Date Diagnosed Date Neurogenic bladder as late e ffect of cerebrovascular accident (CVA) 11/04/2022 Recurrent UTI 11/04/[address] 11/04/2022 Chronic deep vein thrombosis (DVT) of lower extr emity 07/24/2022 Dependence on wheelchair 07/24/2022 Essential hypertension 07/24/2022 Hemorrhagic stroke 07/24/2022 Hypercholesterolemia 07/24/2022 Left hemiparesis 07/24/2022 Seizure disorder 07/24/2022 Urinary incontinence 07/24/2022 Encounters Date Type Department Care Team Description 01/19/2025 3:00 PM EDT Office Visit [facility] [address] [place] [address] Norma Short DDS 12/22/2024 2:00 PM EDT Office Visit [facility] [address] [place] [address] Chevy Diaz 12/16/2024 Telephone [facility] [address] [place] [address] Chevy Diaz emergency dental visit from Last 3 Months Immunizations Immunization Administration Dates Next Due Influenza injectable quadriv alent preservative free 05/07/2022 Moderna Covid-19 Vaccine 12+ 08/18/2021,11/14/19 21,10/16/2020 Tdap 06/23/2022 Zoster, Recombinant 12/17/2022 Social History Tobacco Use Types Packs/Day Years Used Date Smoking Tobacco: Never Smokeless Tobacco: Never Tobacco Cessation:Counseling Given: Not Answered Alcohol Use Standard Drinks/Week Comments Not Currently [...] Orientation Straight 05/26/2022 10 :40 AM EDT Last Filed Vital Signs Vital Sign Reading Time Taken Comments Blood Pressure 130/82 12/22/2024 1:58 PM EDT Pulse 69 12/22/2024 1:58 PM EDT Temperature 36.2 C (97.1 F) 05/13/2023 2:48 PM EDT Respiratory Rate 16 05/13/2023 2:48 PM EDT Oxygen Saturation 98% 05/13/2023 2:48 PM EDT Inhaled Oxygen Concentration - - Weight 73.5 kg (162 lb) 05/13/2023 2:48 PM EDT Height 165.1 cm (5' 5 ) 05/13/2023 2:48 PM EDT Body Mass Index 26.96 05/13/2023 2:48 PM EDT Plan of Treatment Health Maintenance Due Date Last Done Comments CT Colonography 1958 Colonoscopy 1958 Colorectal Cancer Screening 1958 Dental Oral Exam 1958 Dental Prophylaxis 1958 Dental X-Ray: Full Mouth 1958 FIT DNA/Cologuard 1958 FIT 1958 FOBT 1958 Lipid Panel 1958 Sigmoidoscopy 1958 Alcohol/Substance Use Screening 1970 Hepatitis C Screening 1976 Pneumococcal Vaccine: 50+ Years (1 of 1 - PCV) 2008 RSV Patients and Patients Aged 60 years or older (1 - Risk 60-74 years 1-dose series) 2018 Zoster Vaccines (2 of 2) 02/11/2023 12/17/2022 Depression Screening 11/05/2023 11/04/2022, 11/04/2022 SDOH Screening 11/05/2023 11/04/2022 COVID-19 Vaccine (4 - 2023-2 5 season) 2024 08/18/2021, 11/13/2020, 10/16/2020 Influenza Vaccine (#1) 2025 , 05/07/2022 Dental X-Ray: Bitewings 12/23/2025 12/22/2024 Tobacco Screening 01/19/2026 01/19/2025 DTaP/Tdap/Td Vaccines (2 - T d or Tdap) 06/23/2032 06/23/2022 HIB Vaccines Aged Out No longer eligi ble based on patient's age to complete this topic HPV Vaccines Aged Out No longer eligi ble based on patient's age to complete this topic Hepatitis A Vaccines Aged Out No long er eligible based on patient's age to complete this topic Hepatitis B Vaccines Aged Out No long er eligible based on patient's age to complete this topic IPV Vaccines Aged Out No longer eligi ble based on patient's age to complete this topic Meningococcal B Vaccine Aged Out No l onger eligible based on patient's age to complete this topic Meningococcal Vaccine Aged Out No farhad lesley eligible based on patient's age to complete this topic RSV under 20 months Aged Out No longe r eligible based on patient's age to complete this topic Rotavirus Vaccines Aged Out No longer eligible based on patient's age to complete this topic Goals Goal Patient Goal Type Associated Problems Recent Progress Patient-Stated? Author Come to the pharmacy on 02/18/23 to receive the second dose of Shingrix. General No Niranjan Ochoa PharmD Continue taking your medications as directed General No Niranjan Ochoa PharmD Procedures Procedure Name Priority Date/Time Associated Diagnosis Comments CASE PRESENTATION, DETAILED AND EXTENSIVE TREATMENT PLANNING Routine 12/22/2024 2:00 PM EDT BITEWING - SINGLE RADIOGRAPHIC IMAGE Routine 12/22/2024 2:00 PM EDT 6,11 INTRAORAL - PERIAPICAL FIRST RADIOGRAPHIC IMAGE Routine 12/22/2024 2:00 PM EDT 6,11 LIMITED ORAL EVALUATION - PROBLEM FOCUSED Routine 12/22/2024 2:00 PM EDT from Last 3 [place] [id number] [facility]IC[facility] Member Subscriber Plan / Payer (Ef fective 2022-) Name:Kush Wise Member ID:[id number] Relation to Subscriber:Self Name:Kush Wise Subscriber ID:[id number] Payer ID:[id number] Group ID:Not on file Type:Medicare Address: [facility].[address] [address] [facility] STAND AD[place] Care Teams Game Preserve Manager Relationship Specialty Start Date End Date Name, MD Regan [address] [place] [id number] PCP - General Family Medicine 05/07/22
== END 2025-02-01 12:20 | disposition home or self-care (01) ==
LOC: HO.HUSH 11:20
PROVIDERS: PCP Internal Medicine Geriatric Medicine; Visit Provider Nurse Practitioner Family
DX: N31.9 Neuromuscular dysfunction of bladder, unspecified (principal); N20.0 Calculus of kidney
CPT/HCPCS: 99213; G2211

== ENCOUNTER → 2025-02-01 11:20 | Outpatient (BNVA) | payer MEDICARE, MEDICAID, SELFPAY | PROVIDERS: PCP Internal Medicine Geriatric Medicine; Visit Provider Nurse Practitioner Family | DX: Z96.0 Presence of urogenital implants (principal); N31.9 Neuromuscular dysfunction of bladder, unspecified; N20.0 Calculus of kidney; R97.20 Elevated prostate specific antigen [PSA] | CPT/HCPCS: 99212 ==